=== PATIENT | female | born 1955 | race Caucasian/White ===

== ENCOUNTER 2020-08-08 20:05 | Inpatient (IN) | payer BC ==
[2020-08-08 21:08] LABS: Absolute Lymphocytes (CBC) 1.2 K/uL (0.7-4.9); Hematocrit 34.8 % (36.0-45.0); Lymphocytes % 24.3 % (15.3-44.8); MPV 9.3 fL (7.6-11.3); RBC Red Blood Cell Count 4.28 M/uL (3.86-4.86)
[2020-08-08 21:10] LABS: Protime INR 1.14
[2020-08-08] MEDS ORDERED: NA CHLORIDE 0.9% 1,000 ML ONE (21:18)
[2020-08-08 21:27] LABS: ALT/SGPT 16 U/L (12-78); AST/SGOT 20 U/L (15-37); Albumin 2.9 g/dL (3.4-5.0); Alkaline Phosphatase 106 U/L (45-117); BUN Blood Urea Nitrogen 7 mg/dL (7-18); Bicarbonate 22 mmol/L (21-32); Bilirubin Direct 0.2 mg/dL (0-0.2); Bilirubin Total 0.5 mg/dL (0.2-1.0); Glucose Level 102 mg/dL (74-106); Magnesium 2.1 mg/dL (1.8-2.4); NT PRO-BNP 50 pg/mL (<125); Potassium 3.1 mmol/L (3.5-5.1); Protein, Total 6.7 g/dL (6.4-8.2); Sodium Level 142 mmol/L (136-145); Troponin (Emerg Dept Use Only) < 0.02 ng/mL (0.0-0.045)
[2020-08-08] MEDS ORDERED: LEVETIRACETAM 500 MG/5 ML VIAL IV ONE (22:10)
[2020-08-08] MEDS ORDERED: NA CHLORIDE 0.9% 100 ML ONE (22:14)
[2020-08-08] MEDS ORDERED: POTASSIUM 25 MEQ EFFERV TAB ONE (22:33)
--- NOTE | 2020-08-09 00:05 | ER ---
Nurse's Notes [facility] Name: Valerie Cervantes Age: 64 yrs Sex: Female : 1955 Arrival Date: 08/08/2020 Time: 20:10 Bed 18 Private MD: Diagnosis: Syncope and collapse;Seizure Presentation: 08/08 20:15 Chief complaint: EMS states: EMS reports son called for a witnessed syncopal episode, sf possible seizure like activity. Upon EMS arrival, found patient alert and oriented x4 with no post-ictal state but BP 78/P. Positive for COVID 14 days ago, no s/s now, hx hemorrhagic CVA with craniotomy. Coronavirus screen: Client denies travel out of the [place] in the last 14 days. At this time, the client does not indicate any symptoms associated with coronavirus-19. Client reports previous positive COVID test result. Date of collection: July 25, 2020. Ebola Screen: Patient negative for fever greater than or equal to 101.5 degrees Fahrenheit, and additional compatible Ebola Virus Disease symptoms Patient denies exposure to infectious person. Patient denies travel to an Ebola-affected area in the 21 days before illness onset. No symptoms or risks identified at this time. Initial Sepsis Screen: Does the patient meet any 2 criteria? No. Patient's initial sepsis screen is negative. Does the patient have a suspected source of infection? No. Patient's initial sepsis screen is negative. Risk Assessment: Do you want to hurt yourself or someone else? Patient reports no desire to harm self or others. Onset of symptoms was August 08, 2020 at 19:45. 20:15 Method Of Arrival: EMS: [facility] sf 20:15 Acuity: REMY 3 sf 20:15 Care prior to arrival: Medication(s) given: IV initiated. 22 GA, in the left forearm, sf Glucose check: 109. Triage Assessment: 20:21 General: Appears in no apparent distress. comfortable, Behavior is calm, cooperative, sf appropriate for age. Pain: Complains of pain in right temporal area and right ear Pain currently is 2 out of 10 on a pain scale. Neuro: No deficits noted. Level of Consciousness is awake, alert, obeys commands, Oriented to person, place, time, situation, Appropriate for age. Cardiovascular: No deficits noted. Patient's skin is warm and dry. Respiratory: No deficits noted. Airway is patent Respiratory effort is even, unlabored, Respiratory pattern is regular, symmetrical. Historical: - Allergies: 20:20 Aspirin; sf - Home Meds: 21:16 levetiracetam 250 mg oral tab 2 tabs 2 times per day [Active]; folic acid 1 mg Oral tab sf 1 tab once daily [Active]; Pepcid 20 mg Oral tab 1 tab 2 times per day [Active]; lisinopril 5 mg Oral tab 1 tab once daily [Active]; albuterol sulfate 90 mcg/actuation Inhl HFAA 2 puffs every 4-6 hours [Active]; acetaminophen 325 mg Oral tab 2 tabs every 4-6 hours [Active]; tramadol 50 mg Oral tab 1 tab every 4-6 hours [Active]; aregfcj-emofhffdg-lnpy oral tab daily [Active]; multivitamin oral tab daily [Active]; Vitamin D3 oral oral daily [Active]; - PMHx: 20:20 CVA; sf 21:16 Hypertension; cervical cancer; sf - PSHx: 20:20 craniotomy; sf 21:16 Hysterectomy; breast augmentation; sf - Immunization history:: Adult Immunizations up to date. - Social history:: Smoking status: Patient denies any tobacco usage or history of. Screenin:27 Abuse screen: Denies threats or abuse. Denies injuries from another. Nutritional sf screening: No deficits noted. Tuberculosis screening: No symptoms or risk factors identified. Never had TB. Possible symptoms: None Risk factors: None. Fall Risk None identified. Fall in past 12 months (25 points). No secondary diagnosis (0 pts). IV access (20 points). Ambulatory Aid- None/Bed Rest/Nurse Assist (0 pts). Gait- Normal/Bed Rest/Wheelchair (0 pts) Mental Status- Oriented to own ability (0 pts). Total Castle Fall Scale indicates No Risk (0-24 pts). Assessment: 20:15 Reassessment: SEE TRIAGE NOTE. sf 20:32 Reassessment: VORB: Dr. Fernandez, cardiac workup with head CT w/o contrast. sf 21:52 Reassessment: Patient appears in no apparent distress at this time. No changes from sf previously documented assessment. Patient and/or family updated on plan of care and expected duration. Pain level reassessed. Patient is alert, oriented x 3, equal unlabored respirations, skin warm/dry/pink. 22:55 Reassessment: Patient appears in no apparent distress at this time. No changes from sf previously documented assessment. Patient and/or family updated on plan of care and expected duration. Pain level reassessed. Patient is alert, oriented x 3, equal unlabored respirations, skin warm/dry/pink. 08/09 00:49 Reassessment: Patient appears in no apparent distress at this time. No changes from sf previously documented assessment. Patient and/or family updated on plan of care and expected duration. Pain level reassessed. Patient is alert, oriented x 3, equal unlabored respirations, skin warm/dry/pink. Vital Signs: 08/08 20:15 BP 112 / 55; Pulse 82; Resp 16; Temp 99.1(O); Pulse Ox 94% on R/A; Weight 79.38 kg; Height 5 ft. 7 in. (170.18 cm); Pain 2/10; 20:15 BP 110 / 53; Pulse 84; Pulse Ox 94% ; sf 20:30 BP 81 / 44; Pulse 86; Pulse Ox 94% ; sf 20:46 BP 112 / 73; Pulse 88; Pulse Ox 96% ; sf 21:00 BP 94 / 40; Pulse 80; Resp 16; Pulse Ox 90% ; sf 21:15 BP 100 / 47; Pulse 78; Pulse Ox 92% ; sf 21:43 BP 104 / 58; Pulse 76; Pulse Ox 96% ; sf 21:45 BP 105 / 53; Pulse 76; Resp 16; Pulse Ox 93% ; sf 21:48 BP 109 / 55; Pulse 74; Pulse Ox 92% ; sf 22:00 BP 84 / 60; Pulse 81; Resp 16; Pulse Ox 97% ; sf 22:15 BP 92 / 54; Pulse 76; Pulse Ox 91% ; sf 22:30 BP 111 / 53; Pulse 74; Pulse Ox 94% ; sf 22:45 BP 99 / 61; Pulse 79; Resp 16; Pulse Ox 98% ; sf 23:00 BP 104 / 77; Pulse 77; Resp 16; Pulse Ox 100% ; sf 23:15 BP 106 / 62; Pulse 78; Pulse Ox 98% ; sf 23:31 BP 95 / 34; Pulse 87; Pulse Ox 97% ; sf 23:45 BP 122 / 81; Pulse 89; Resp 16; Pulse Ox 96% ; sf 08/09 00:51 Temp 99.1(TE); sf 08/08 20:15 Body Mass Index 27.41 (79.38 kg, 170.18 cm) ED Course: 08/08 20:10 Patient arrived in ED. mw2 20:15 Pasha Banks, RN is Primary Nurse. sf 20:19 Triage completed. sf 20:20 Arm band placed on right wrist. sf 20:22 Gui Fernandez MD is Attending Physician. 7 20:26 Patient has correct armband on for positive identification. Bed in low position. Call sf light in reach. Side rails up X2. subacute nurse on. Pulse ox on. NIBP on. Door closed. Noise minimized. Lights dimmed. Verbal reassurance given. 20:56 Initial lab(s) drawn, by me, sent to lab. EKG done, by electrical design technician. reviewed by Gui Fernandez MD. Maintain EMS IV. Dressing intact. Good blood return noted. Site clean \\T\\ dry. IV is patent, with good blood return, Flushed left forearm. 20:57 EKG done, by ED staff, reviewed by Gui Fernandez MD X-ray(s) taken. Patient maintains 3 SpO2 saturation greater than 95% on room air. 21:06 Warm blanket given. sf 21:24 CT Head Brain wo Cont Sent. sf 22:02 XRAY Chest (1 view) Sent. sf 22:41 COVID swab sent to lab. jp3 22:55 First set of blood cultures drawn by la. jp3 23:05 Second set of blood cultures drawn by me. jp3 23:50 Blood Culture Adult (2) Sent. sf 23:50 Lactate Sent. sf 23:50 Procalcitonin Sent. sf 23:50 Influenza Screen (a \\T\\ B) Sent. sf 23:50 CORONAVIRUS (COVID-19) : Document "Date of Symptom Onset" if Symptomatic. Sent. sf 23:50 Influenza Screen (A Sent. sf 23:51 CORONAVIRUS Sent. 08/09 00:01 Assisted to bathroom. jp3 00:02 Urine collected: clean catch specimen, clear, vane colored. jp3 00:04 Bong Linton MD is Hospitalizing Provider. mh7 00:48 Urine Dipstick--Ancillary (enter results) Sent. sf 00:49 No provider procedures requiring assistance completed. Patient admitted, IV remains in sf place. 02:50 Inserted saline lock: 22 gauge in left antecubital area, using aseptic technique. Blood sf collected. 07:20 Primary Nurse role handed off by Pasha Banks RN bd Administered Medications: 08/08 21:06 Drug: NS 0.9% 1000 ml Route: IV; Rate: 1000 ml; Site: left forearm; sf 23:51 Follow up: IV Status: Completed infusion; IV Intake: 1000ml sf 08/09 00:48 Follow up: Response: No adverse reaction sf 08/08 22:09 Drug: Keppra 1000 mg Route: IV; Rate: per protocol; Site: left forearm; sf 22:24 Follow up: IV Status: Completed infusion; IV Intake: 100ml sf 22:42 Follow up: Response: No adverse reaction sf 22:55 Follow up: Response: No adverse reaction sf 22:55 Drug: Potassium Effervescent Tablet 50 mEq Route: PO; sf 08/09 00:48 Follow up: Response: No adverse reaction sf Intake: 08/08 22:24 IV: 100ml; Total: 100ml. sf 23:51 IV: 1000ml; Total: 1100ml. Outcome: 08/09 00:04 Decision to Hospitalize by Provider. [facility] 00:49 Admitted to ER Hold. Please see [facility] for further documentation. 00:49 Condition: stable 07:53 Patient left the ED. Signatures: Rae Cole Shelby, RN RN John Page 2 Jignesh Fischer 3 Gui Fernandez MD MD [facility] Pasha Banks RN RN
--- NOTE | 2020-08-09 00:05 | EDPHYS ---
Physician Documentation [facility] Name: Valerie Cervantes Age: 64 yrs Sex: Female : 1955 Arrival Date: 08/08/2020 Time: 20:10 Bed 18 Private MD: ED Physician Gui Fernandez HPI: 08/08 20:56 This 64 yrs old Female presents to ER via EMS with complaints of Syncope. mh7 20:57 The patient has experienced syncope, became unresponsive. Onset: The symptoms/episode mh7 began/occurred just prior to arrival, today. Duration: This was a single episode, that lasted an unknown period of time. Context: the episode(s) was witnessed, by family, son, occurred at home, occurred while the patient was sitting, Just prior to the episode the patient experienced no apparent symptoms. Associated injury: The patient did not suffer any apparent associated injury. Associated signs and symptoms: Pertinent positives: seizure, possible, Pertinent negatives: abdominal pain, agitation, ataxia, blurred vision, chest pain, combativeness, confusion, diaphoresis, diarrhea, dizziness, headache, lightheadedness, nausea, numbness, palpitations, shortness of breath, tingling, vertigo, vomiting, weakness. Current symptoms: Currently, the patient is not experiencing any symptoms, the patient feels back to baseline. Historical: - Allergies: 20:20 Aspirin; sf - Home Meds: 21:16 levetiracetam 250 mg oral tab 2 tabs 2 times per day [Active]; folic acid 1 mg Oral tab sf 1 tab once daily [Active]; Pepcid 20 mg Oral tab 1 tab 2 times per day [Active]; lisinopril 5 mg Oral tab 1 tab once daily [Active]; albuterol sulfate 90 mcg/actuation Inhl HFAA 2 puffs every 4-6 hours [Active]; acetaminophen 325 mg Oral tab 2 tabs every 4-6 hours [Active]; tramadol 50 mg Oral tab 1 tab every 4-6 hours [Active]; ebsayyd-ywzvosjmi-gpgc oral tab daily [Active]; multivitamin oral tab daily [Active]; Vitamin D3 oral oral daily [Active]; - PMHx: 20:20 CVA; sf 21:16 Hypertension; cervical cancer; sf - PSHx: 20:20 craniotomy; sf 21:16 Hysterectomy; breast augmentation; sf - Immunization history:: Adult Immunizations up to date. - Social history:: Smoking status: Patient denies any tobacco usage or history of. ROS: 20:57 Constitutional: Negative for fever, chills, and weight loss, Eyes: Negative for injury, mh7 pain, redness, and discharge, ENT: Negative for injury, pain, and discharge, Neck: Negative for injury, pain, and swelling, Cardiovascular: Negative for chest pain, palpitations, and edema, Respiratory: Negative for shortness of breath, cough, wheezing, and pleuritic chest pain, Abdomen/GI: Negative for abdominal pain, nausea, vomiting, diarrhea, and constipation, Back: Negative for injury and pain, : Negative for injury, bleeding, discharge, and swelling, MS/Extremity: Negative for injury and deformity, Skin: Negative for injury, rash, and discoloration, Neuro: Negative for headache, weakness, numbness, tingling, and seizure, Psych: Negative for depression, anxiety, suicide ideation, homicidal ideation, and hallucinations, Allergy/Immunology: Negative for hives, rash, and allergies, Endocrine: Negative for neck swelling, polydipsia, polyuria, polyphagia, and marked weight changes, Hematologic/Lymphatic: Negative for swollen nodes, abnormal bleeding, and unusual bruising. Exam: 20:57 Constitutional: This is a well developed, well nourished patient who is awake, alert, mh7 and in no acute distress. 20:57 Eyes: Pupils equal round and reactive to light, extra-ocular motions intact. Lids and lashes normal. Conjunctiva and sclera are non-icteric and not injected. Cornea within normal limits. Periorbital areas with no swelling, redness, or edema. ENT: Nares patent. No nasal discharge, no septal abnormalities noted. Tympanic membranes are normal and external auditory canals are clear. Oropharynx with no redness, swelling, or masses, exudates, or evidence of obstruction, uvula midline. Mucous membranes moist. Neck: Trachea midline, no thyromegaly or masses palpated, and no cervical lymphadenopathy. Supple, full range of motion without nuchal rigidity, or vertebral point tenderness. No Meningismus. Chest/axilla: Normal chest wall appearance and motion. Nontender with no deformity. No lesions are appreciated. Cardiovascular: Regular rate and rhythm with a normal S1 and S2. No gallops, murmurs, or rubs. Normal PMI, no JVD. No pulse deficits. Respiratory: Lungs have equal breath sounds bilaterally, clear to auscultation and percussion. No rales, rhonchi or wheezes noted. No increased work of breathing, no retractions or nasal flaring. Abdomen/GI: Soft, non-tender, with normal bowel sounds. No distension or tympany. No guarding or rebound. No evidence of tenderness throughout. Back: No spinal tenderness. No costovertebral tenderness. Full range of motion. Skin: Warm, dry with normal turgor. Normal color with no rashes, no lesions, and no evidence of cellulitis. MS/ Extremity: Pulses equal, no cyanosis. Neurovascular intact. Full, normal range of motion. Neuro: Awake and alert, GCS 15, oriented to person, place, time, and situation. Cranial nerves II-XII grossly intact. Motor strength 5/5 in all extremities. Sensory grossly intact. Cerebellar exam normal. Normal gait. Psych: Awake, alert, with orientation to person, place and time. Behavior, mood, and affect are within normal limits. 20:57 Head/face: Noted is right craniotomy scar intact. Vital Signs: 20:15 BP 112 / 55; Pulse 82; Resp 16; Temp 99.1(O); Pulse Ox 94% on R/A; Weight 79.38 kg; sf Height 5 ft. 7 in. (170.18 cm); Pain 2/10; 20:15 BP 110 / 53; Pulse 84; Pulse Ox 94% ; sf 20:30 BP 81 / 44; Pulse 86; Pulse Ox 94% ; sf 20:46 BP 112 / 73; Pulse 88; Pulse Ox 96% ; sf 21:00 BP 94 / 40; Pulse 80; Resp 16; Pulse Ox 90% ; sf 21:15 BP 100 / 47; Pulse 78; Pulse Ox 92% ; sf 21:43 BP 104 / 58; Pulse 76; Pulse Ox 96% ; sf 21:45 BP 105 / 53; Pulse 76; Resp 16; Pulse Ox 93% ; sf 21:48 BP 109 / 55; Pulse 74; Pulse Ox 92% ; sf 22:00 BP 84 / 60; Pulse 81; Resp 16; Pulse Ox 97% ; sf 22:15 BP 92 / 54; Pulse 76; Pulse Ox 91% ; sf 22:30 BP 111 / 53; Pulse 74; Pulse Ox 94% ; sf 22:45 BP 99 / 61; Pulse 79; Resp 16; Pulse Ox 98% ; sf 23:00 BP 104 / 77; Pulse 77; Resp 16; Pulse Ox 100% ; sf 23:15 BP 106 / 62; Pulse 78; Pulse Ox 98% ; sf 23:31 BP 95 / 34; Pulse 87; Pulse Ox 97% ; sf 23:45 BP 122 / 81; Pulse 89; Resp 16; Pulse Ox 96% ; 08/09 00:51 Temp 99.1(TE); 08/08 20:15 Body Mass Index 27.41 (79.38 kg, 170.18 cm) MDM: 00:02 Differential Diagnosis: cardiac arrhythmia, cerebrovascular accident, drug effect, [facility] idiopathic syncope, pseudo seizure, seizure, vasovagal episode. Data reviewed: vital signs, nurses notes, EMS record, lab test result(s), cardiac enzymes, CBC, electrolytes, urinalysis, EKG, radiologic studies, CT scan, plain films. Data interpreted: Pulse oximetry: on room air is 98 %. Interpretation: normal. Counseling: I had a detailed discussion with the patient and/or guardian regarding: the historical points, exam findings, and any diagnostic results supporting the discharge/admit diagnosis, lab results, radiology results, the need for further work-up and treatment in the hospital. Response to treatment: the patient's symptoms have markedly improved after treatment. Physician consultation: Cheng Falk MD was contacted at 23:40, regarding patient's condition, and will see patient in inpatient room, would like admission per Dr. Bong Linton MD. 00:04 Patient medically screened. [facility] 08/08 20:52 Order name: Basic Metabolic Panel [facility] 08/08 20:52 Order name: CBC with Diff [facility] 08/08 20:52 Order name: LFT's [facility] 08/08 20:52 Order name: Magnesium [facility] 08/08 20:52 Order name: NT PRO-BNP [facility] 08/08 20:52 Order name: PT-INR [facility] 08/08 20:52 Order name: Troponin (emerg Dept Use Only) [facility] 08/08 21:10 Order name: CBC with Automated Diff; Complete Time: 21:27 [facility] 08/08 21:15 Order name: Protime (+INR); Complete Time: 21:27 [facility] 08/08 21:27 Order name: Basic Metabolic Panel [facility] 08/08 21:27 Order name: Liver (Hepatic) Function [facility] 08/08 21:27 Order name: Troponin (Emerg Dept Use Only) [facility] 08/08 21:27 Order name: NT PRO-BNP [facility] 08/08 21:27 Order name: Magnesium [facility] 08/08 22:34 Order name: Blood Culture Adult (2) [facility] 08/08 22:34 Order name: Lactate [facility] 08/08 22:34 Order name: Procalcitonin [facility] 08/08 22:37 Order name: Influenza Screen (a \\T\\ B) [facility] 08/08 22:37 Order name: CORONAVIRUS (COVID-19) : Document "Date of Symptom Onset" if Symptomatic. [facility] 08/08 23:17 Order name: Influenza Screen (A [facility] 08/08 23:18 Order name: CORONAVIRUS [facility] 08/08 23:38 Order name: Lactate; Complete Time: 23:46 [facility] 08/08 23:52 Order name: Procalcitonin; Complete Time: 23:57 [facility] 08/08 20:30 Order name: Cardiac monitoring; Complete Time: 20:30 08/08 20:30 Order name: EKG - Nurse/Tech; Complete Time: 20:55 08/08 20:30 Order name: IV Saline Lock; Complete Time: 20:31 08/08 20:30 Order name: Labs collected and sent; Complete Time: 20:56 08/08 20:30 Order name: O2 Per Protocol; Complete Time: 20:31 08/08 20:30 Order name: O2 Sat Monitoring; Complete Time: 20:31 08/08 20:52 Order name: XRAY Chest (1 view); Complete Time: 22:29 [facility] 08/08 20:52 Order name: EKG; Complete Time: 20:53 [facility] 08/08 20:52 Order name: Urine Dipstick-Ancillary (obtain specimen); Complete Time: 23:56 [facility] 08/08 20:53 Order name: CT Head Brain wo Cont; Complete Time: 21:57 [facility] 08/09 00:11 Order name: Urine Dipstick--Ancillary (enter results) [facility] 08/09 00:17 Order name: COVID-19/FLU A+B [facility] 08/09 02:00 Order name: Thyroid Stimulating Hormone EDMS 08/09 04:36 Order name: Urine Dipstick-Ancillary EDMS Administered Medications: 08/08 21:06 Drug: NS 0.9% 1000 ml Route: IV; Rate: 1000 ml; Site: left forearm; sf 23:51 Follow up: IV Status: Completed infusion; IV Intake: 1000ml 08/09 00:48 Follow up: Response: No adverse reaction 08/08 22:09 Drug: Keppra 1000 mg Route: IV; Rate: per protocol; Site: left forearm; sf 22:24 Follow up: IV Status: Completed infusion; IV Intake: 100ml sf 22:42 Follow up: Response: No adverse reaction sf 22:55 Follow up: Response: No adverse reaction 22:55 Drug: Potassium Effervescent Tablet 50 mEq Route: PO; 08/09 00:48 Follow up: Response: No adverse reaction Disposition: 08/09/20 00:04 Hospitalization ordered by Bong Linton for Observation. Preliminary diagnosis are Syncope and collapse, Seizure. - Bed requested for Telemetry/MedSurg (observation). - Status is Observation. ss - Condition is Stable. - Problem is new. - Symptoms have improved. Signatures: Dispatcher [employer] EDMS Rae Cole Martha RN RN Kayla Clements RN Hollie Lugo RN RN Gui Fernandez MD MD [facility] Pasha Banks RN RN sf Corrections: (The following items were deleted from the chart) 00:19 00:04 Hospitalization Ordered by Bong Linton MD for Observation. Preliminary mw diagnosis is Syncope and collapse; Seizure. Bed requested for Telemetry/MedSurg (observation). Status is Observation. Condition is Stable. Problem is new. Symptoms have improved. [facility] 07:09 00:19 08/09/2020 00:04 Hospitalization Ordered by Bong Linton MD for Observation. Preliminary diagnosis is Syncope and collapse; Seizure. Bed requested for [facility] ER HOLD. Status is Observation. Condition is Stable. Problem is new. Symptoms have improved. 07:09 07:08/09/2020 00:04 Hospitalization Ordered by Bong Linton MD for Observation. dw Preliminary diagnosis is Syncope and collapse; Seizure. Bed requested for Telemetry/MedSurg (observation). Status is Observation. Condition is Stable. Problem is new. Symptoms have improved. dw 07:09 07:08/09/2020 00:04 Hospitalization Ordered by Bong Linton MD for Observation. bd Preliminary diagnosis is Syncope and collapse; Seizure. Bed requested for Telemetry/MedSurg (observation). Status is Observation. Condition is Stable. Problem is new. Symptoms have improved. dw 07:53 07:08/09/2020 00:04 Hospitalization Ordered by Bong Linton MD for Observation. ss Preliminary diagnosis is Syncope and collapse; Seizure. Bed requested for Telemetry/MedSurg (observation). Status is Observation. Condition is Stable. Problem is new. Symptoms have improved. bd
[2020-08-09 00:16] LABS: SARS-COV-2 RT PCR POSITIVE (NEGATIVE)
[2020-08-09] MEDS ORDERED: HYDRALAZINE HCL 20 MG/ML VIAL IV PRN (00:51)
[2020-08-09] MEDS ORDERED: GUAIFENESIN/DM 5 ML UCUP PO PRN (00:51)
[2020-08-09] MEDS ORDERED: ONDANSETRON 4 MG/2 ML VIAL IV PRN (00:51)
[2020-08-09] MEDS ORDERED: LORAZEPAM 0.5 MG TABLET PO PRN (00:51)
[2020-08-09] MEDS ORDERED: ALBUTEROL 2.5 MG/3 ML NEB SOL NEB PRN (00:51)
[2020-08-09] MEDS ORDERED: MORPHINE 2 MG/ML SYR IV PRN (00:51)
[2020-08-09] MEDS ORDERED: POTASSIUM CL SA 10 MEQ TAB PO ONE (00:53)
[2020-08-09] MEDS ORDERED: NS KCL 40MEQ 40 MEQ/1,000 ML BAG IV SCH (01:00)
--- NOTE | 2020-08-09 01:08 | P.HP ---
Certification for Inpatient With expected LOS: >2 Midnights Patient will require the following post-hospital care: None Practitioner: I am a practitioner with admitting privileges, knowledge of patient current condition, hospital course, and medical plan of care. Services: Services provided to patient in accordance with Admission requirements found in Title 42 Section 412.3 of the Code of Federal Regulations Patient History Date of Service: 08/09/20 Reason for admission: Unresponsiveness History of Present Illness: 64-year-old female with past medical history of hypertension, recent CVA status post bleed requiring craniectomy 2 months ago admitted after EMS was called for patient being unresponsive. Patient's son had described to the ER physician. Patient was apparently well then developed repeated episodes of shaking and MB, unresponsive. Of note patient is on Keppra following her recent CVA and craniectomy. On arrival in the ED patient was awake but poor historian. No reported fever or chills. She denies any nausea, vomiting or headache. She denies any cough or shortness of breath. In the ER she has a low-grade temp of 99.[address] shows fluid collection around the craniectomy site. Neurology consulted a recommend MRI of the brain to rule out infection. Patient's routine pre-admission screening showed positive covid status. she admit to positive status 10 days ago but refuse option of ivermectin then Allergies No Known Allergies Allergy (Verified 07/12/20 14:05) Home Medications: Acetaminophen [Tylenol Extra Strength] 500 mg PO TID 07/14/20 Famotidine [Pepcid] 20 mg PO BID 07/14/20 Folic Acid 1 mg PO DAILY 07/14/20 Levetiracetam [Keppra] 250 mg PO BID 07/14/20 Lisinopril [Zestril] 5 mg PO DAILY 07/14/20 - Past Medical/Surgical History -: Hypertension -: CVA in -: Recent craniotomy -: History of cervical cancer -: Breast augmentation -: Craniotomy - Family History Family History: Reviewed- Non-Contributory - Social History Smoking Status: Never smoker Place of Residence: Home Review of Systems 10-point ROS is otherwise unremarkable Physical Examination - Physical Exam General: Alert, Oriented x3, Cooperative HEENT: Atraumatic, Normocephalic Neck: Supple, 2+ carotid pulse no bruit, JVD not distended Respiratory: Clear to auscultation bilaterally, Normal air movement Cardiovascular: No edema, Normal pulses, Regular rate/rhythm, Normal S1 S2 Gastrointestinal: Normal bowel sounds, Soft and benign, Non-distended Musculoskeletal: No clubbing, No swelling, No contractures Neurological: Normal gait, Normal speech, Normal strength at 5/5 x4 extr - Studies Laboratory Data (last 24 hrs) 08/08/20 20:55: PT 13.1 H, INR 1.14 08/08/20 20:55: WBC 4.80, Hgb 11.5 L, Hct 34.8 L, Plt Count 201 08/08/20 20:55: Sodium 142, Potassium 3.1 L, BUN 7, Creatinine 0.48 L, Glucose 102, Magnesium 2.1, Total Bilirubin 0.5, AST 20, ALT 16, Alkaline Phosphatase 106 Assessment and Plan - Problems (Diagnosis) (1) Seizure cerebral Current Visit: Yes Status: Acute (2) COVID-19 virus infection Current Visit: Yes Status: Acute (3) Hypokalemia Current Visit: Yes Status: Acute (4) Hx of cerebral infarction Current Visit: No Status: Acute (5) Hypertension Current Visit: No Status: Acute - Plan Seizure disorder-will consult neurology -status post increased dose of Keppra to 750 b.i.d. -status post Keppra 1 g IV given now -place on neuro checks q.4 hr. -May have been precipitated by Covid infection # Hypokalemia-will replete with IV - gentle IV fluid with NS at [facility] # Covid infection/pna -start ivermectin/Decadron/zinc Wean oxygen as tolerated #DVT prophylaxis-subcutaneous heparin #Full code Discharge Plan: Home - Advance Directives Does patient have a Living Will: No Does patient have a Durable POA for Healthcare: No Physician Review: Patient Assessed, Agree with Above Assessment and Plan (65) Time Spent Managing Pts Care (In Minutes): 65
[2020-08-09 03:20] VITALS: BMI 27.3
[2020-08-09] MEDS: HEPARIN 5000 UNIT/ML 1 ML VIAL SQ SCH ×4 (03:30→20:51)
[2020-08-09] MEDS ORDERED: HEPARIN 5000 UNIT/ML 1 ML VIAL ONE (03:46)
[2020-08-09] MEDS ORDERED: KCL 20 MEQ/100 mL IVPB 40 MEQ/200 ML BAG IV ONE (04:02)
[2020-08-09] MEDS ORDERED: NA CHLORIDE 0.9% 1,000 ML ONE (04:02)
[2020-08-09 04:35] LABS: Urine Blood NEGATIVE (NEG); Urine Glucose NEGATIVE (NEG); Urine Protein NEGATIVE (NEG)
[2020-08-09] MEDS ORDERED: dexAMETHasone 4 MG TAB PO SCH (09:00)
[2020-08-09] MEDS ORDERED: lisinopriL 5 MG TAB PO SCH (09:00)
[2020-08-09] MEDS ORDERED: IVERMECTIN 3 MG TABLET PO SCH (09:00)
--- NOTE | 2020-08-09 09:18 | P.PN ---
Subjective Date of Service: 08/09/20 Primary Care Provider: Previously see by Dr. Garcia Chief Complaint: Unresponsiveness Subjective: Improving, Doing well Physical Examination - Vital Signs Temperature: 98.1 F Blood Pressure: 126/62 Pulse: 93 Respirations: 14 Pulse Ox (%): 94 - Physical Exam General: Alert, In no apparent distress, Oriented x3, Cooperative HEENT: Other (Postsurgical changes to the head.) Neck: Supple Respiratory: Clear to auscultation bilaterally, Normal air movement Cardiovascular: Normal pulses, Regular rate/rhythm Gastrointestinal: Normal bowel sounds, Soft and benign, Non-distended, No tenderness, No masses, No rebound, No guarding Musculoskeletal: No erythema, No tenderness, No warmth Neurological: Normal speech, Normal strength at 5/5 x4 extr, Normal tone, Normal affect - Studies Laboratory Data (last 24 hrs) 08/08/20 20:55: PT 13.1 H, INR 1.14 08/08/20 20:55: WBC 4.80, Hgb 11.5 L, Hct 34.8 L, Plt Count 201 08/08/20 20:55: Sodium 142, Potassium 3.1 L, BUN 7, Creatinine 0.48 L, Glucose 102, Magnesium 2.1, Total Bilirubin 0.5, AST 20, ALT 16, Alkaline Phosphatase 106 Medications List Reviewed: Yes Assessment & Plan Discharge Plan: Home Plan to discharge in: 24 Hours Physician Review Additional Text: Impression: Unresponsiveness status post seizure complicated with history of CVA with craniotomy Hypertension COVID 19 positive, asymptomatic Plan: Unresponsiveness status post seizure complicated with history of CVA with craniotomy: Her Keppra medication was increased. Continue monitor on higher dose. MRI to be obtained to evaluate further. Will discuss with Neurology. If MRI unremarkable anticipate discharge later today on higher dose Keppra. This can be followed up as an outpatient. Hypertension: Continue lisinopril. Will put parameters in place. COVID 19 positive, asymptomatic: Patient asymptomatic. Unremarkable. Will monitor closely. Time Spent Managing Pts Care (In Minutes): 55
[2020-08-09] MEDS: lisinopriL 5 MG TAB PO SCH (09:48)
[2020-08-09] MEDS: ZINC SULFATE 220 MG CAP PO SCH (09:48)
[2020-08-09] MEDS: levETIRAcetam 500 MG TAB PO SCH ×2 (09:48→20:50)
--- NOTE | 2020-08-09 11:13 | RAD REPORT ---
EXAM DESCRIPTION: CT - Head Brain Wo Cont - 08/09/2020 1:08 am CLINICAL HISTORY: 64-year-old female with syncope. COMPARISON: No prior imaging is available for comparison. TECHNIQUE: CT brain without contrast. This exam was performed according to our departmental dose opt imization program which includes use of automated exposure control, adjustment of the mA and/or kV ac cording to patient size and/or use of iterative reconstruction technique. FINDINGS: Postoperative changes of a RIGHT frontal pterional craniotomy identified affixed with surg ical plates. Portion of the inferior pterional craniotomy appears to be incompletely affixed to the a djacent calvarium. Fluid collection is identified subjacent to the craniotomy site measuring up to 9 mm in thickness, (s eries 201, image 18) with low attenuation contents suggesting chronic collection. Additionally, a sma ll volume of similar-appearing density fluid is identified within the deep subcutaneous tissues direc tly abutting the calvarium measuring up to 5 mm in thickness, (series 201, image 16). Gliosis and encephalomalacia is identified at the level of the RIGHT parietal lobe suggesting sequela of prior tumor/postoperative change and/or infarction. Cystic type fluid collection is identified wi thin this level may reflect surgical bed with possible communication to the RIGHT occipital horn. The extra-axial fluid collection subjacent to the craniotomy site is of indeterminate age and may ref lect postoperative hematoma, seroma, however the possibility of infectious process including subdural empyema cannot be excluded on a noncontrast CT examination. Likewise the subcutaneous fluid collection may reflect postoperative change however infection cannot be excluded. Multifocal regions of patchy hypoattenuation are present in a subcortical and periventricular deep wh ite matter distribution, nonspecific; however, most likely represent small vessel ischemic disease, a ge indeterminate. The ventricles, sulci, and cisterns are symmetric and unremarkable. The umaña-white matter different iation is preserved. There is no mass effect, midline shift, intra- or extra-axial fluid collection /acute hemorrhage. The osseous structures are unremarkable. The paranasal sinuses and mastoid air cells are clear. IMPRESSION: 1. No acute intracranial abnormalities. 2. Fluid collection identified adjacent to the craniotomy site raising the concern for postoperative chronic appearing hematoma/seroma, however the possibility of infectious process including subdural e mpyema cannot be excluded. Further evaluation with MRI pre and postcontrast is recommended. Electronically signed by: Denise Peraza MD 08/08/2020 9:52 PM SECURITY DIRECTOR Due to temporary technical issues with the PACS/Fluency reporting system, reports are being signed by the in house radiologists without review as a courtesy to insure prompt reporting. The interpreting radiologist is fully responsible for the content of the report.
--- NOTE | 2020-08-09 11:28 | RAD REPORT ---
EXAM DESCRIPTION: RAD - Chest Single View - 08/08/2020 10:16 pm CLINICAL HISTORY: 64-year-old female with syncope. TECHNIQUE: Single view, AP portable chest was obtained. COMPARISON: None. FINDINGS: Unremarkable cardiac and mediastinal silhouette. Heart size is normal. Lungs are clear without focal opacity, pneumothorax or pleural effusions. Limited evaluation, however the bilateral lower lungs secondary to overlying breast soft tissue density. Upright PA and lateral radiography is recommended when the patient is clinically able. The visualized bones are within normal limits. IMPRESSION: No acute cardiopulmonary abnormalities. Limited evaluation, however the bilateral lower lungs secondary to overlying breast soft tissue density. Upright PA and lateral radiography is recomm ended when the patient is clinically able. Electronically signed by: Denise Peraza MD 08/08/2020 10:40 PM MATERIAL CUTTER Due to temporary technical issues with the PACS/Fluency reporting system, reports are being signed by the in house radiologists without review as a courtesy to insure prompt reporting. The interpreting radiologist is fully responsible for the content of the report.
--- NOTE | 2020-08-09 13:13 | EKG ---
Test Date: 2020-08-08 Test Time: 20:52:07 Lumber Hacker: REBECCA MEASUREMENT RESULTS: Intervals: Rate: 87 NH: 144 QRSD: 82 QT: 382 QTc: 459 Llewellyn: P: 60 NH: 144 QRS: 27 T: 61 INTERPRETIVE STATEMENTS: Normal sinus rhythm Normal ECG No previous ECG available for comparison Electronically Signed On 08-09-20 13:12:27 METAL ENGRAVER by Sal Barclay
[2020-08-09] MEDS: ASCORBIC ACID 500 MG TABLET PO SCH ×2 (15:02→20:52)
[2020-08-09] MEDS: ACETAMINOPHEN 500 MG TAB PO PRN ×2 (15:31→23:22)
[2020-08-09] MEDS: LOPERAMIDE HCL 2 MG CAPSULE PO PRN (17:12)
--- NOTE | 2020-08-09 17:28 | RAD REPORT ---
EXAM DESCRIPTION: MRI - Brain W/Wo Cont - 08/09/2020 5:12 pm CLINICAL HISTORY: brain lesion r/o infection Headache, drowsiness COMPARISON: Head Brain Wo Cont dated 08/08/2020 TECHNIQUE: Multi-sequence, multiplanar MR imaging of the brain was performed with contrast. FINDINGS: Motion degradation is present on the submitted sequences, limiting assessment. Enhancement of the dura adjacent to the craniotomy site is noted. There is also mild enhancement in t he right postsurgical parietooccipital region. Right-sided extra-axial fluid along the right cranioto my site is noted, measuring 9 mm in maximum thickness. Some diffusion restriction is seen within the fluid as well as the adjacent surgical cavity on DWI imaging. Mild oblong fluid collection is also se en along the right scalp in this region measuring up to 8 mm in thickness. There is minimal right to left midline shift seen. IMPRESSION: Moderate motion degradation is present limiting evaluation. Collected MRI findings detailed above are suspicious for right-sided subdural empyema/infection.Recom mend correlation with clinical signs and symptoms.
[2020-08-09] MEDS: LACTOBACILLUS/ACIDOPHILUS TAB PO SCH (20:52)
[2020-08-10 04:34] LABS: ALT/SGPT 16 U/L (12-78); AST/SGOT 20 U/L (15-37); Albumin 2.9 g/dL (3.4-5.0); Alkaline Phosphatase 109 U/L (45-117); BUN Blood Urea Nitrogen 4 mg/dL (7-18); Bicarbonate 25 mmol/L (21-32); Bilirubin Total 0.5 mg/dL (0.2-1.0); Glucose Level 85 mg/dL (74-106); Potassium 3.5 mmol/L (3.5-5.1); Protein, Total 6.9 g/dL (6.4-8.2); Sodium Level 142 mmol/L (136-145)
[2020-08-10 05:51] LABS: Absolute Lymphocytes (CBC) 1.2 K/uL (0.7-4.9); Basophils % 0.2 % (0-1.3); Hematocrit 35.1 % (36.0-45.0); Lymphocytes % 23.2 % (15.3-44.8); MPV 9.7 fL (7.6-11.3); RBC Red Blood Cell Count 4.25 M/uL (3.86-4.86)
[2020-08-10] MEDS ORDERED: CEFTRIAXONE 1 GM/NS 50 ML 1 GM/50 ML BAG IV SCH (05:57)
[2020-08-10] MEDS: CEFTRIAXONE/SWI 1gm 1 GM/10 ML SYR IV SCH (06:21)
--- NOTE | 2020-08-10 08:20 | P.PN ---
Subjective Date of Service: 08/10/20 Primary Care Provider: Previously see by Dr. Garcia Chief Complaint: Unresponsiveness Subjective: Doing well (T-max 101.1) Physical Examination - Vital Signs Temperature: 99.1 F Blood Pressure: 132/62 Pulse: 84 Respirations: 16 Pulse Ox (%): 94 - Studies Medications List Reviewed: Yes Assessment & Plan Discharge Plan: Transfer Plan to discharge in: Greater than 2 days Physician Review Additional Text: Impression: Unresponsiveness status post seizure complicated with history of ruptured aneurysm requiring craniotomy now with MRI findings of suspicious right-sided subdural empyema Hypertension COVID 19 positive, asymptomatic Plan: Unresponsiveness status post seizure complicated with history of ruptured aneurysm requiring craniotomy now with MRI findings of suspicious right-sided subdural empyema: Patient clinically stable. T-max 101 last night. Blood culture 06/28 positive. Suspect contaminant. MRI reviewed. Case discussed with Neurology. Neurology recommends to start IV antibiotic therapy. Rocephin/vancomycin initiated. White count within normal range. Pro calcitonin negative. MRI reviewed with Neurology. Suspect Right-sided subdural empyema noted. Neurology recommends transfer to tertiary care center to further evaluate and treat. Patient will need neurosurgery/neurology for further evaluation. Patient will likely require drainage of empyema. Will initiate transfer. Spoke with children in detail concerning prior history of events. Children report patient suffered a severe headache May 07, 2020 then became unresponsive. Patient was seen in [facility] for this. She was found to have a ruptured aneurysm. She then had emergent surgery-craniotomy. Her hospitalization was complicated with aspiration pneumonia. She was eventually discharge to skilled placement[facility] in [facility] at the end of May. Most recently around July 20 she start to have some symptoms of cough and congestion. She was then found to be positive for COVID 19. Patient was hospitalized during this admission for unresponsiveness and seizure. Her Keppra medication has been increased. No seizures noted. Await to discuss further with neuro surgery and the possibility of acceptance for transfer. Hypertension: Continue lisinopril. Parameters in place. COVID 19 positive, asymptomatic: Patient asymptomatic. Unremarkable. Will monitor closely. Room-air saturations within normal range. Time Spent Managing Pts Care (In Minutes): 55
[2020-08-10] MEDS ORDERED: VANCOMYCIN 1.5 GM in NA CHLORIDE 0.9% 500 ML IVPB SCH (09:00)
[2020-08-10] MEDS ORDERED: VANCOMYCIN 1 GM in NA CHLORIDE 0.9% 500 ML IVPB SCH (09:00)
[2020-08-10] MEDS: ZINC SULFATE 220 MG CAP PO SCH (09:18)
[2020-08-10] MEDS: VITAMIN D 1000 UNIT TAB PO SCH (09:18)
[2020-08-10] MEDS: LACTOBACILLUS/ACIDOPHILUS TAB PO SCH ×3 (09:19→20:09)
[2020-08-10] MEDS: FOLIC ACID 1 MG TABLET PO SCH (09:19)
[2020-08-10] MEDS: levETIRAcetam 500 MG TAB PO SCH ×2 (09:19→20:10)
[2020-08-10] MEDS: HEPARIN 5000 UNIT/ML 1 ML VIAL SQ SCH ×2 (09:19→20:11)
[2020-08-10] MEDS: ASCORBIC ACID 500 MG TABLET PO SCH ×3 (09:19→20:09)
[2020-08-10] MEDS: THIAMINE HCL 100 MG TABLET PO SCH (09:19)
[2020-08-10] MEDS: lisinopriL 5 MG TAB PO SCH (09:21)
[2020-08-10] MEDS: VANCOMYCIN 1.5 GM in NA CHLORIDE 0.9% 500 ML IVPB SCH ×2 (10:38→20:12)
[2020-08-10 13:02] LABS: C.diff Antigen/Toxin Ag neg : Tox neg (NEG : NEG)
[2020-08-10] MEDS: ACETAMINOPHEN 500 MG TAB PO PRN (16:21)
[2020-08-10] MEDS: JUVEN PACKET PO SCH (20:13)
[2020-08-11 04:18] LABS: ALT/SGPT 16 U/L (12-78); AST/SGOT 18 U/L (15-37); Albumin 2.7 g/dL (3.4-5.0); Alkaline Phosphatase 110 U/L (45-117); BUN Blood Urea Nitrogen 3 mg/dL (7-18); Bicarbonate 24 mmol/L (21-32); Bilirubin Total 0.6 mg/dL (0.2-1.0); Glucose Level 84 mg/dL (74-106); Protein, Total 6.8 g/dL (6.4-8.2); Sodium Level 139 mmol/L (136-145)
[2020-08-11] MEDS: CEFTRIAXONE/SWI 1gm 1 GM/10 ML SYR IV SCH (07:59)
[2020-08-11] MEDS: VITAMIN D 1000 UNIT TAB PO SCH (07:59)
[2020-08-11] MEDS: LACTOBACILLUS/ACIDOPHILUS TAB PO SCH ×3 (08:00→20:09)
[2020-08-11] MEDS ORDERED: POTASSIUM 25 MEQ EFFERV TAB PO ONE (08:00)
[2020-08-11] MEDS: ASCORBIC ACID 500 MG TABLET PO SCH ×3 (08:01→20:10)
[2020-08-11] MEDS: levETIRAcetam 500 MG TAB PO SCH ×2 (08:02→20:09)
[2020-08-11] MEDS: HEPARIN 5000 UNIT/ML 1 ML VIAL SQ SCH ×2 (08:02→20:10)
[2020-08-11] MEDS: THIAMINE HCL 100 MG TABLET PO SCH (08:02)
[2020-08-11] MEDS: lisinopriL 5 MG TAB PO SCH (08:02)
[2020-08-11] MEDS: ZINC SULFATE 220 MG CAP PO SCH (08:02)
[2020-08-11] MEDS: FOLIC ACID 1 MG TABLET PO SCH (08:05)
[2020-08-11] MEDS: JUVEN PACKET PO SCH ×2 (08:05→20:10)
[2020-08-11] MEDS: VANCOMYCIN 1.5 GM in NA CHLORIDE 0.9% 500 ML IVPB SCH ×2 (08:05→21:54)
[2020-08-11] MEDS: ACETAMINOPHEN 500 MG TAB PO PRN (08:41)
[2020-08-11] MEDS: LOPERAMIDE HCL 2 MG CAPSULE PO PRN ×2 (14:47→20:10)
--- NOTE | 2020-08-11 14:48 | P.PN ---
Subjective Date of Service: 08/11/20 Primary Care Provider: Previously see by Dr. Garcia Chief Complaint: Unresponsiveness Subjective: Doing well Physical Examination - Vital Signs Temperature: 99.4 F Blood Pressure: 118/64 Pulse: 75 Respirations: 20 Pulse Ox (%): 94 - Studies Medications List Reviewed: Yes Assessment & Plan Discharge Plan: Transfer Plan to discharge in: 24 Hours Physician Review Additional Text: Impression: Unresponsiveness status post seizure complicated with history of ruptured aneurysm requiring craniotomy now with MRI findings of suspicious right-sided subdural empyema Hypertension COVID 19 positive, asymptomatic Plan: Unresponsiveness status post seizure complicated with history of ruptured aneurysm requiring craniotomy now with MRI findings of suspicious right-sided subdural empyema: Patient clinically stable. Patient afebrile over the last 24 hr. Vital signs stable. Patient on room air. Spoke with Neurosurgery and hospitalists yesterday. They have agreed to accept patient for further evaluation at [facility]. Currently awaiting bed. Rep eat COVID test still positive. Continue with vitamin supplementation. Patient on IV Rocephin and vancomycin. White count within normal range. Pro calcitonin negative. MRI reviewed with Neurology. Suspect Right-sided subdural empyema noted. Patient will need neurosurgery/neurology for further evaluation. Patient will likely require drainage of empyema. Spoke with children today concerning plan of care. Await transfer. Hypertension: Continue lisinopril. Parameters in place. COVID 19 positive, asymptomatic: Patient asymptomatic. Unremarkable. Will monitor closely. Room-air saturations within normal range. Time Spent Managing Pts Care (In Minutes): 55
[2020-08-11] MEDS ORDERED: POTASSIUM CL SA 10 MEQ TAB PO ONE (21:00)
[2020-08-12 04:32] LABS: ALT/SGPT 16 U/L (12-78); AST/SGOT 18 U/L (15-37); Albumin 2.5 g/dL (3.4-5.0); Alkaline Phosphatase 112 U/L (45-117); BUN Blood Urea Nitrogen 3 mg/dL (7-18); Bicarbonate 26 mmol/L (21-32); Bilirubin Total 0.5 mg/dL (0.2-1.0); Glucose Level 80 mg/dL (74-106); Potassium 3.4 mmol/L (3.5-5.1); Protein, Total 6.4 g/dL (6.4-8.2); Sodium Level 142 mmol/L (136-145)
[2020-08-12] MEDS ORDERED: POTASSIUM 25 MEQ EFFERV TAB PO ONE (05:52)
[2020-08-12] MEDS: VANCOMYCIN 1.5 GM in NA CHLORIDE 0.9% 500 ML IVPB SCH ×2 (08:18→19:48)
[2020-08-12] MEDS: HEPARIN 5000 UNIT/ML 1 ML VIAL SQ SCH ×2 (08:19→19:50)
[2020-08-12] MEDS: CEFTRIAXONE/SWI 1gm 1 GM/10 ML SYR IV SCH (08:19)
[2020-08-12] MEDS: FOLIC ACID 1 MG TABLET PO SCH (08:19)
[2020-08-12] MEDS: THIAMINE HCL 100 MG TABLET PO SCH (08:20)
[2020-08-12] MEDS: LACTOBACILLUS/ACIDOPHILUS TAB PO SCH ×3 (08:20→19:50)
[2020-08-12] MEDS: lisinopriL 5 MG TAB PO SCH (08:20)
[2020-08-12] MEDS: VITAMIN D 1000 UNIT TAB PO SCH (08:20)
[2020-08-12] MEDS: ASCORBIC ACID 500 MG TABLET PO SCH ×3 (08:20→19:49)
[2020-08-12] MEDS: levETIRAcetam 500 MG TAB PO SCH ×2 (08:20→19:49)
[2020-08-12] MEDS: JUVEN PACKET PO SCH ×2 (08:21→19:50)
[2020-08-12] MEDS: ZINC SULFATE 220 MG CAP PO SCH (08:21)
--- NOTE | 2020-08-12 09:11 | P.PN ---
Subjective Date of Service: 08/12/20 Primary Care Provider: Previously see by Dr. Garcia Chief Complaint: Unresponsiveness Subjective: No new changes, Doing well Physical Examination - Vital Signs Temperature: 99.0 F Blood Pressure: 114/63 Pulse: 100 Respirations: 14 Pulse Ox (%): 91 - Studies Laboratory Data (last 24 hrs) 08/11/20 13:35: Potassium 3.5 Medications List Reviewed: Yes Assessment & Plan Discharge Plan: Transfer ([facility]) Plan to discharge in: 24 Hours Physician Review Additional Text: Impression: Unresponsiveness status post seizure complicated with history of ruptured aneurysm requiring craniotomy now with MRI findings of suspicious right-sided subdural empyema Hypertension COVID 19 positive, asymptomatic Plan: Unresponsiveness status post seizure complicated with history of ruptured aneurysm requiring craniotomy now with MRI findings of suspicious right-sided subdural empyema: Patient clinically stable. Patient remains afebrile. No further seizures. Some anxiety noted. Still waiting on bed available at [facility]. Spoke with neurosurgery and hospitalist the other day who has agreed for acceptance. Repeat COVID test still positive. Continue with vitamin supplementation. Patient continues with Keppra 750 mg 1 pill twice daily. Patient remains on on IV Rocephin and vancomycin. MRI reviewed with Neurology the other day. Suspect Right-sided subdural empyema noted. Patient will require further evaluation and likely drainage of empyema. Await for bed and transfer. Patient agrees with plan of care. Spoke with family yesterday about plan. Hypertension: Continue lisinopril. Parameters in place. COVID 19 positive, asymptomatic: Patient asymptomatic. Unremarkable. Will monitor closely. Room-air saturations within normal range. Time Spent Managing Pts Care (In Minutes): 55
[2020-08-12] MEDS ORDERED: LORAZEPAM 0.5 MG TABLET PO PRN (09:12)
--- NOTE | 2020-08-13 00:18 | P.DS ---
Admission Date: 08/11/20 Discharge Date: 08/13/20 Primary Care Provider: Previously see by Dr. Garcia Disposition: TRANSFER TO [facility] Discharge Condition: GOOD Reason for Admission: Unresponsiveness Consultations: Neurology: Dr. Falk Procedures: Chest x-ray: FINDINGS: Unremarkable cardiac and mediastinal silhouette. Heart size is normal. Lungs are clear without focal opacity, pneumothorax or pleural effusions. Limited evaluation, however the bilateral lower lungs secondary to overlying breast soft tissue density. Upright PA and lateral radiography is recommended when the patient is clinically able. The visualized bones are within normal limits. IMPRESSION: No acute cardiopulmonary abnormalities. Limited evaluation, however the bilateral lower lungs secondary to overlying breast soft tissue density. Upright PA and lateral radiography is recommended when the patient is clinically able. CT head: FINDINGS: Postoperative changes of a RIGHT frontal pterional craniotomy identified affixed with surgical plates. Portion of the inferior pterional craniotomy appears to be incompletely affixed to the adjacent calvarium. Fluid collection is identified subjacent to the craniotomy site measuring up to 9 mm in thickness, (series 201, image 18) with low attenuation contents suggesting chronic collection. Additionally, a small volume of similar-appearing density fluid is identified within the deep subcutaneous tissues directly abutting the calvarium measuring up to 5 mm in thickness, (series 201, image 16). Gliosis and encephalomalacia is identified at the level of the RIGHT parietal lobe suggesting sequela of prior tumor/postoperative change and/or infarction. Cystic type fluid collection is identified within this level may reflect surgical bed with possible communication to the RIGHT occipital horn. The extra-axial fluid collection subjacent to the craniotomy site is of indeterminate age and may reflect postoperative hematoma, seroma, however the possibility of infectious process including subdural empyema cannot be excluded on a noncontrast CT examination. Likewise the subcutaneous fluid collection may reflect postoperative change however infection cannot be excluded. Multifocal regions of patchy hypoattenuation are present in a subcortical and periventricular deep white matter distribution, nonspecific; however, most likely represent small vessel ischemic disease, age indeterminate. The ventricles, sulci, and cisterns are symmetric and unremarkable. The umaña- white matter differentiation is preserved. There is no mass effect, midline shift, intra- or extra-axial fluid collection/acute hemorrhage. The osseous structures are unremarkable. The paranasal sinuses and mastoid air cells are clear. IMPRESSION: 1. No acute intracranial abnormalities. 2. Fluid collection identified adjacent to the craniotomy site raising the concern for postoperative chronic appearing hematoma/seroma, however the possibility of infectious process including subdural empyema cannot be excluded. Further evaluation with MRI pre and postcontrast is recommended. MRI brain: Enhancement of the dura adjacent to the craniotomy site is noted. There is also mild enhancement in the right postsurgical parietooccipital region. Right-sided extra-axial fluid along the right craniotomy site is noted, measuring 9 mm in maximum thickness. Some diffusion restriction is seen within the fluid as well as the adjacent surgical cavity on DWI imaging. Mild oblong fluid collection is also seen along the right scalp in this region measuring up to 8 mm in thickness. There is minimal right to left midline shift seen. IMPRESSION: Moderate motion degradation is present limiting evaluation. Collected MRI findings detailed above are suspicious for right-sided subdural empyema/infection.Recommend correlation with clinical signs and symptoms. 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 Patient also tested positive for Romano virus. Hospital Course: Patient presented to the emergency department unresponsive, CT brain was performed which revealed possible subdural empyema status post craniotomy secondary to her ruptured aneurysm. Patient also tested positive for Romano virus. Patient was admitted, neurology was consulted who recommended MRI, MRI was obtained which demonstrated suspected subdural empyema. At this time neurology/neurosurgery were consulted again, patient was initiated on IV antibiotic therapy. White blood cell count remained normal pro calcitonin negative, patient did not appear septic normal mental status at this time. Recommendation for transfer to tertiary center for neuro surgical evaluation with possible craniotomy/drainage of empyema. Patient transferred to [facility] in [place] for further evaluation and management. Vital Signs/Physical Exam: Temp Pulse Resp BP Pulse Ox 97.3 F 91 H 18 128/63 94 08/12/20 20:00 08/12/20 20:00 08/12/20 20:00 08/12/20 20:00 08/12/20 20:00 General: Alert, In no apparent distress HEENT: Atraumatic, PERRLA, EOMI Neck: Supple, JVD not distended Respiratory: Clear to auscultation bilaterally, Normal air movement Cardiovascular: Regular rate/rhythm, Normal S1 S2 Gastrointestinal: Normal bowel sounds, No tenderness Musculoskeletal: No tenderness Integumentary: No rashes Neurological: Normal speech, Normal tone, Normal affect Laboratory Data at Discharge: WBC 5.20 K/uL (4.3-10.9) 08/10/20 05:22 Hgb 11.3 g/dL (12.0-15.0) L 08/10/20 05:22 Hct 35.1 % (36.0-45.0) L 08/10/20 05:22 Plt Count 195 K/uL (152-406) 08/10/20 05:22 PT 13.1 SECONDS (9.5-12.5) H 08/08/20 20:55 INR 1.14 08/08/20 20:55 Sodium 142 mmol/L (136-145) 08/12/20 03:26 Potassium 4.0 mmol/L (3.5-5.1) 08/12/20 12:01 BUN 3 mg/dL (7-18) L 08/12/20 03:26 Creatinine 0.43 mg/dL (0.55-1.3) L 08/12/20 03:26 Glucose 80 mg/dL (74-106) 08/12/20 03:26 Magnesium 2.1 mg/dL (1.8-2.4) 08/08/20 20:55 Total Bilirubin 0.5 mg/dL (0.2-1.0) 08/12/20 03:26 AST 18 U/L (15-37) 08/12/20 03:26 ALT 16 U/L (12-78) 08/12/20 03:26 Alkaline Phosphatase 112 U/L (45-117) 08/12/20 03:26 Home Medications: Acetaminophen [Tylenol Extra Strength] 500 mg PO TID 07/14/20 Famotidine [Pepcid] 20 mg PO BID 07/14/20 Folic Acid 1 mg PO DAILY 07/14/20 Levetiracetam [Keppra] 750 mg PO BID 07/14/20 Lisinopril [Zestril] 5 mg PO DAILY 07/14/20 Amlodipine Besylate 5 mg PO DAILY 08/12/20 Physician Discharge Instructions: Continue with care at [facility] in [place]. Followup: NONE,NONE [Primary Care Provider] - Time spent managing pt's care (in minutes): 55
[2020-08-13 00:57] VITALS: BP 128/71; TEMP 98.9; O2SAT 91
== END 2020-08-13 00:57 | disposition short-term general hospital (02) | DRG 94 ==
LOC: ER 20:05 → ERHOLD 08-09 01:04 → 4TH 08-09 07:32 → OBSVTOIN 08-11 15:45
PROVIDERS: ADMIT Internal Medicine; ATTEND Family Medicine
DX: G06.0 Intracranial abscess and granuloma (principal); U07.1 COVID-19; J12.82 Pneumonia due to coronavirus disease 2019; E87.6 Hypokalemia; F41.9 Anxiety disorder, unspecified; I10 Essential (primary) hypertension; R19.7 Diarrhea, unspecified; Z88.8 Allergy status to other drugs, medicaments and biological substances; Z79.899 Other long term (current) drug therapy; Z86.73 Personal history of transient ischemic attack (TIA), and cerebral infarction without residual deficits; Z85.41 Personal history of malignant neoplasm of cervix uteri; Z90.710 Acquired absence of both cervix and uterus
CPT/HCPCS: 0240U; 36415; 70450; 70553; 71045; 80048; 80053; 80076; 80202; 81003; 83605; 83735; 83880; 84132; 84145; 84443; 84484; 85025; 85610; 87040; 87205; 87324; 87449; 93005; 96361; 96374; 97110; 97112; 97116; 97161; 99285; A9577; G0378; J0696; J1644; J1953; J3370; J3480; J7030; J7040; J8540; U0003

== ENCOUNTER 2021-02-07 10:53 | Emergency (ER) | payer BC ==
--- OUTSIDE RECORDS SUMMARY | 2021-02-07 10:59 | XMS REPORT | Continuity of Care Document ---
:[address] [facility] t Address [address] [place] [address] Care Team Providers Name Role Phone Mer Brooks Primary Care Physician Andreas HOPE Attending Clinician Luke HOPE Attending Clinician Mark Anthony Velasquez MD Attending Clinician Ja Attending Clinician Unavailable Pancho Arteaga MD Attending Clinician Marianne HOPE Attending Clinician Unavailable ANDREAS Attending Clinician Unavailable Char Dhillon Attending Clinician Unavailable Peter HOPE Attending Clinician Lorna Sharpe MD Attending Clinician Donald Cornejo MD Attending Clinician Wanda Bonner MD Attending Clinician Donya Ferrell MD Attending Clinician [phone] Lauryn HOPE Attending Clinician Serge HOPE Attending Clinician LORNA SHARPE Attending Clinician Unavailable Elizabeth HOPE Attending Clinician Tayla Dominguez MD Attending Clinician Edmond Hawk MD Attending Clinician Dutch Osullivan MD Attending Clinician Sandi Turner MD Attending Clinician Idris HOPE, Cooper Attending Clinician Celetse Gary MD Attending Clinician TAYLA DOMINGUEZ Attending Clinician Unavailable Daniel Attending Clinician Stevie Cohen Attending Clinician Aren Parkinson MD Attending Clinician ANDREAS Admitting Clinician Unavailable Wanda BONNER Admitting Clinician Unavailable EDMOND HAWK Admitting Clinician Unavailable Payers Payer Name Policy Type Policy Effective Date Expiration Date Sour ce Number BLUE CROSS/BLUE [id number] [facility] [employer] ADV 00:00:00 - [facility] [id number] 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 empyema 2-19 [facility] - 00:00: Medical 00 Center COVID-19 COVID-19 Disease Active [facility] virus virus 2-19 [facility] - infection infection 00:00: Medi joseph 00 Center Cerebral Cerebral Disease Active [facility] seizure seizure 2-19 [facility] - 00:00: Medical 00 Center Gastroesop Gastroesop Disease Active [facility] hageal hageal 2-19 [facility] - reflux reflux 00:00: Medical disease disease 00 Center 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[facility] cerebral cerebral 2-19 [facility] - infarction infarction 00:00: Me dical 00 Center 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[facility] craniotomy craniotomy 08-13 [facility] - 00:00: Medical 00 [place] 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[facility] intracrani intracrani 08-13 [facility] - al al 00:00: Medical hemorrhage hemorrhage 00 Ce nter Hypertensi Hypertensi Disease Active [facility] on on 08-13 [facility] - 00:00: Medical 00 [place] Non-healin Non-healin Disease Active [facility] g surgical g surgical 08-13 [facility] - wound wound 00:00: Medical 00 [place] Open wound Open wound Disease Active [facility] of head of head 08-13 [facility] - with with 00:00: Medical complicati complicati 00 Ce nter on on Pressure Pressure Disease Active [facility] injury of injury of 08-13 [facility] - head, head, 00:00: Medical unstageabl unstageabl 00 Ce nter e e Weakness Weakness Disease Active [facility] of left of left 08-13 kes - side of side of 00:00: Medical body body 00 Center Allergies, Adverse Reactions, Alerts Allergy Allergy Status Severity Reaction(s) Onset Inactive Treating Comm ents Source Name Type Date Date Clinician Aspirin Drug Active Pt states [facility]-15 [facility] - nce 00:00: takes Medical 00 aspirin, Center she gets severe abd cramps Social History Social Habit Start Date Stop Date Quantity Comments Source History of Current smoker [facility] - tobacco use Medical Cente r Sex Assigned At [facility] Exposure to Not sure [facility] - SARS-CoV2 [facility] (event) Tobacco use and 2021-02-03 2021-02-03 Never used [facility] - exposure 00:00:00 00:00:00 [facility] Alcohol intake 2021-02-03 2021-02-03 Ex-drinker [facility] - 00:00:00 00:00:00 (finding) [facility] Smoking Status Start Date Stop Date Source Former smoker 2021-02-03 00:00:00 2021-02-03 00:00:[address] [facility] Medications Ordered Filled Start Stop Current Ordering Indication Dosage Frequency Signature Comments Components Source Medication Medication Date Date Medication? Clinician (SIG) Name Name levETIRAcet Yes 750mg Q.5D Take [address] am (KEPPRA) 8-14 mg by [facility] - 750 MG 15:57: mouth 2 Medical tablet 37 (two) Center times daily. GABAPENTIN Yes QD Take by [facility] ORAL 8-14 mouth [facility] - 15:57: nightly. Medical [address] [place] [address] atorvastati Yes 20mg QD Take [address] n (LIPITOR) 8-14 by mouth Luke s - 20 MG 15:57: daily. Medical tablet 37 Center bacitracin 2020- Yes 1g [id number] Apply [address] 500 8-05 02-24 [id number] topically [facility] - unit/gram 00:00: 23:59 3D 3 (three) Me dical ointment 00 :00 times Center daily for 10 days. bacitracin 2020- Yes 1g Q.[id number] Apply [address] 500 8-14 08-24 [id number] topically [facility] - unit/gram 00:00: 23:59 3D 3 (three) Me dical ointment 00 :00 times Center daily for 10 days. melatonin 5 Yes 5mg Take [address] mg Tab 4-02 tablet (5 [facility] - tablet 00:00: mg total) Medica l 00 by mouth Center every night as needed (insomnia) . magnesium Yes 400mg QD Take 1 [facility] oxide 4-02 tablet [facility] - (MAG-OX) 00:00: (400 mg Medica l 400 mg 00 total) by Center (241.3 mg mouth magnesium) daily. tablet nystatin 2021- No Q.5D Apply [facility] (MYCOSTATIN 4-02 04-02 topically [facility] - ) 100,000 00:00: 23:59 2 (two) Medi joseph unit/gram 00 :00 times Center cream daily. levETIRAcet 2020- No 750mg Q.5D Take [address] am (KEPPRA) 4-02 05-02 tablet [facility] - 750 MG 00:00: 23:59 (750 mg Medical tablet 00 :00 total) by Center mouth 2 (two) times daily for 30 days. lisinopriL 2020- No 10mg QD Take [address] (PRINIVIL,Z 09-24 05-02 tablet (10 L u[facility] - ESTRIL) 10 00:00: 23:59 mg total) M edical MG tablet 00 :00 by mouth Center daily for 30 days. magnesium No 400mg QD Take [address] oxide 09-20 tablet [facility] - (MAG-OX) 00:00: 00:00 (400 mg Medic al 400 mg 00 :00 total) by Center (241.3 mg mouth magnesium) daily. tablet hydrALAZINE No 25mg QD Take [address] (APRESOLINE 09-19 by mouth [facility] - ) 25 MG 17:48: 00:00 daily. Medical tablet 20 :00 [place] citalopram No 20mg QD Take [address] (CeleXA) 20 09-19 by mouth Purvi [facility] - MG tablet 17:48: 00:00 daily. Medic al 20 :00 [place] mirtazapine No 15mg QD Take [address] (REMERON) 09-19 by mouth [facility]ukes - 15 MG 17:48: 00:00 nightly. Medical tablet 20 :00 [place] melatonin 5 2020- No 5mg Take [address] mg Tab 09-19 tablet (5 [facility] - tablet 00:00: 00:00 mg total) Medic al 00 :00 by mouth Center every night as needed (insomnia) . cefTRIAXone 2020- No 2g Inject [address] (ROCEPHIN) 09-19 intravenou [facility] - MBP 2 g in 00:00: 00:00 sly every M edical 100 mL NS 00 :00 12 Center (twelve) hours for 4 days. vancomycin- 2020- No 750mg Inject [address] water 09-19- mLs (750 [facility] - inject, 00:00: 00:00 mg total) Medi joseph PEG, (VANCO 00 :00 intravenou Ce nter READY) 1.25 sly every gram/250 mL 12 PgBk (twelve) hours for 4 days. acetaminoph 2020- No 650mg Take [address] en 09-19- tablets [facility]ukes - (TYLENOL) 00:00: 00:00 (650 mg Medi joseph 325 MG 00 :00 total) by Center tablet mouth every 6 (six) hours as needed for Pain or Fever (headache) . levETIRAcet 2020- No 750mg Q.5D Take [address] am (KEPPRA) 08-24 tablet [facility] - 750 MG 00:00: 23:59 (750 mg Medical tablet 00 :00 total) by Center mouth 2 (two) times daily for 30 days. lisinopriL 2020- No 5mg QD Take [address] (PRINIVIL,Z 08-24 tablet (5 [facility] - ESTRIL) 5 00:00: 23:59 mg total) Me dical MG tablet 00 :00 by mouth Center daily for 30 days. cefTRIAXone 2020- No 2g Inject [address] (ROCEPHIN) 08-24 intravenou [facility] - MBP 2 g in 00:00: 00:00 sly every M edical 100 mL NS 00 :00 12 Center (twelve) hours for 30 days. vancomycin- 2020- No 1250mg Inject [address] water 08-24- mLs (1,250 [facility] - inject, 00:00: 00:00 mg total) Medi joseph PEG, (VANCO 00 :00 intravenou Ce nter READY) 1.25 sly every gram/250 mL 12 PgBk (twelve) hours for 30 days. docusate 2020- No 100mg Q.5D Take 1 [facility] t sodium 08-24 capsule [facility] - (COLACE) 00:00: 23:59 (100 mg Medic al 100 MG 00 :00 total) by Center capsule mouth 2 (two) times daily for 10 days. acetaminoph 2020- No 1{tbl} Take [address] en-codeine 08-24 tablet by Purvi [facility] - (TYLENOL 00:00: 23:59 mouth Medical #3) 300-30 00 :00 every 8 Center mg per (eight) tablet hours as needed for up to 7 days. Max Daily Amount: 3 tablets acetaminoph No THREE [facility] en (Tylenol 1-20 03-02 TIMES A Luke s - Extra 00:00: 00:00 DAY Medical Strength) 00 :00 [place] 500 MG tablet lisinopriL 2020- No 5mg QD Take [address] (PRINIVIL,Z 07-05 by mouth Purvi es - ESTRIL) 5 00:00: 00:00 daily. Medic al MG tablet 00 :00 [place] folic acid Yes 1mg QD Take [address] (FOLVITE) 07-02 by mouth Luke s - MG tablet 00:00: daily . Medic al 00 [place] levETIRAcet No 250mg Q.5D Take [address] am (KEPPRA) 07-02 03-02 mg by [facility] - 250 MG 00:00: 00:00 mouth 2 Medical tablet 00 :00 (two) Center times daily. Vital Signs Vital Name Observation Time Observation Value Comments Source Systolic blood 2021-02-05 12:15:00 105 mm[Hg] [facility] Diastolic blood 2021-02-05 12:15:00 57 mm[Hg] [facility] Heart rate 2021-02-05 12:15:00 86 /min [facility] Respiratory rate 2021-02-05 12:15:00 19 /min [facility] Oxygen saturation in 2021-02-05 12:15:00 96 /min [facility] Arterial blood by Medical Ce nter Pulse oximetry Body temperature 2021-02-05 07:24:00 36.94 Gracy [facility] Body height 2021-02-02 18:00:00 170.2 cm [facility] Body weight 2021-02-02 18:00:00 69.9 kg [facility] BMI 2021-02-02 18:00:00 24.13 kg/m2 [facility] Procedures Procedure Date / Time Performing Clinician Source Performed CT BRAIN WITHOUT IV 2021-02-04 16:52:[address] [facility] CRANIOPLASTY 2021-02-03 12:41:00 Andreas [facility] TRANSFER/ 2021-02-03 12:41:00 Dorian Green [facility],ADJACENT Medical C enter TISSUE HEAD/ NECK BASIC METABOLIC PANEL (7) 2021-02-03 02:36:00 Cuco Richardson CH I [facility] PROTHROMBIN TIME/INR 2021-02-03 02:36:00 Richardson [facility] APTT 2021-02-03 02:36:00 Cuco Richardson [facility] XR CHEST 1 VIEW PORTABLE 2021-02-02 21:20:00 Star Dutton [facility] - / BEDSIDE Medical Center ECG 12-LEAD 2021-02-02 19:38:12 Star Dutton [facility] TYPE AND SCREEN, 2021-02-02 18:03:00 Star Dutton [facility] CBC (HEMOGRAM ONLY) 2021-02-02 17:13:00 Cuco Richardson [facility] [place] CEREBRAL 4 VESSEL 2021-02-02 12:45[facility] POCT-SODIUM 2021-02-02 10:52:00 Tansandip [facility] POCT-POTASSIUM 2021-02-02 10:52[facility] 2021-02-02 10:52:00 Tansandip [facility] POCT-HEMOGLOBIN 2021-02-02 10:52:[facility]-HEMATOCRIT 2021-02-02 10:52:[facility] PO[facility]-CHLORIDE 2021-02-02 10:52:00 [facility] PO[facility]-CALCIUM IONIZED 2021-02-02 10:52:00 Andreas [facility] POCT-BUN 2021-02-02 10:52:00 Tanweadryan [facility] POCT-GLUCOSE 2021-02-02 10:52:00 [facility] CBC W/PLT COUNT & AUTO 2021-02-02 10:42:00 Lucero Howard [facility] PT/APTT 2021-02-02 10:42:00 Lucero Howard [facility] SARS-COV2/RT-PCR ([facility] & 2021-01-31 15:13:[address] [facility] REF LABS) [facility] CREATININE 2020-09-24 04:58:00 [facility] CREATININE 2020-09-23 05:13:00 [facility] CREATININE 2020-09-22 05:26:00 [facility] 2020-09-21 05:13:00 [facility] VANCOMYCIN LEVEL, TROUGH 2020-09-21 05:12:00 [facility] CREATININE 2020-09-20 06:11:00 [facility] CREATININE 2020-09-19 04:43:00 [facility] SARS-COV2/RT-PCR ([facility] & 2020-09-18 04:59:00 Shankar Jorgensen [facility] REF LABS) [facility] BASIC METABOLIC PANEL (7) 2020-09-17 04:47:00 Jammie Combs [facility] MAGNESIUM 2020-09-17 04:47:00 Jammie Combs [facility] VANCOMYCIN LEVEL, TROUGH 2020-09-17 04:47:00 [facility] CBC (HEMOGRAM ONLY) 2020-09-16 04:52:00 Lauryn Jammie [facility] BASIC METABOLIC PANEL (7) 2020-09-16 04:52:00 Lauryn Jammie I [facility] VANCOMYCIN LEVEL, TROUGH 2020-09-15 11:28:00 Lauryn Jammie [facility] VANCOMYCIN LEVEL, TROUGH 2020-09-15 02:25:00 Tati Machado [facility] BASIC METABOLIC PANEL (7) 2020-09-13 16:10:00 Tati Machado [facility] EEG AWAKE AND DROWSY 2020-09-13 11:50:00 [facility] POCT-GLUCOSE METER 2020-09-13 11:27:00 [facility] BLOOD CULTURE 2020-09-12 05:57:[address] [facility] URINALYSIS W/ MICROSCOPIC 2020-09-12 02:09:00 [facility] BLOOD CULTURE 2020-09-11 20:18:[address] [facility] ECG 12-LEAD 2020-09-10 09:43:44 Unknown, Hl7 Doctor [facility] TSH/FREE T4 IF INDICATED 2020-09-10 04:52:00 Milagros Bonner [facility] VITAMIN B12 2020-09-10 04:52:00 Milagros Bonner [facility] BLOOD GAS, VENOUS 2020-09-10 02:40:00 Tenisha Sharpe [facility] BLOOD CULTURE 2020-09-10 02:39:00 Tenisha Sharpe [facility] CBC W/PLT COUNT & AUTO 2020-09-10 02:27:00 Tenisha Sharpe [facility] COMPREHENSIVE METABOLIC 2020-09-10 02:27:[address] [facility] MAGNESIUM 2020-09-10 02:27:00 Tenisha Sharpe [facility] LACTIC ACID, VENOUS 2020-09-10 02:27:00 Tenisha Sharpe [facility] TROPONIN I 2020-09-10 02:27:00 Tenisha Sharpe [facility] AMMONIA 2020-09-10 02:26:00 Tenisha Sharpe [facility] PT/APTT 2020-09-10 02:26:00 Tenisha Sharpe [facility] APTT 2020-09-10 02:26:00 Tenisha Sharpe [facility] XR CHEST 1 VIEW PORTABLE 2020-09-09 22:46:00 Tenisha Sharpe [facility] / BEDSIDE [facility] CT BRAIN WITHOUT IV 2020-09-09 20:30:[address] [facility] REPORT OF PROCEDURE - 2020-09-09 00:00:00 Provider, Queta [facility] ENDOSCOPY SCAN Scanning [facility] CBC W/PLT COUNT & AUTO 2020-08-24 05:56:00 Renata Gary [facility] BASIC METABOLIC PANEL (7) 2020-08-24 05:56:00 Renata Gary [facility] VANCOMYCIN LEVEL, TROUGH 2020-08-24 05:56:00 Gil Urban [facility] CBC W/PLT COUNT & AUTO 2020-08-23 05:10:00 Renata Gary [facility] BASIC METABOLIC PANEL (7) 2020-08-23 05:10:00 Luigi Garychester Celeste [facility] VANCOMYCIN LEVEL, TROUGH 2020-08-22 09:33:00 Gil Urban [facility] CBC W/PLT COUNT & AUTO 2020-08-22 09:33:00 Renata Gary [facility] CREATININE 2020-08-22 04:24:00 Gil Urban [facility] CBC W/PLT COUNT & AUTO 2020-08-21 04:53:00 Renata Gary [facility] BASIC METABOLIC PANEL (7) 2020-08-21 04:53:00 Renata Gary [facility] VANCOMYCIN LEVEL, TROUGH 2020-08-20 10:36:00 Gil Urban [facility] CREATININE 2020-08-20 05:46[facility]00 [facility] CHEST 1 VIEW PORTABLE 2020-08-19 14:58:00 Castro Steinberg [facility] / BEDSIDE [facility] VANCOMYCIN LEVEL, TROUGH 2020-08-18 09:57:[address] [facility] POCT-GLUCOSE METER 2020-08-17 17:42:00 Abran Banner [facility] POCT-GLUCOSE METER 2020-08-17 12:14:00 Abran Banner [facility] POCT-GLUCOSE METER 2020-08-17 07:31:00 Martha Turner [facility] SARS-COV2/RT-PCR ([facility] & 2020-08-17 06:38:00 Abran [facility] - REF LABS) [facility] CBC W/PLT COUNT & AUTO 2020-08-17 05:56:00 Stevie Dotson [facility] COMPREHENSIVE METABOLIC 2020-08-17 05:56:00 Stevie Dotson [facility] MAGNESIUM 2020-08-17 05:56:00 Stevie Dotson [facility] PHOSPHORUS 2020-08-17 05:56:00 Stevie Dotson [facility] POCT-GLUCOSE METER 2020-08-16 20:18:00 Martha Turner [facility] CBC W/PLT COUNT & AUTO 2020-08-16 04:21:00 Stevie Dotson [facility] COMPREHENSIVE METABOLIC 2020-08-16 04:21:[address] [facility] MAGNESIUM 2020-08-16 04:21:[address] [facility] PHOSPHORUS 2020-08-16 04:21:[address] [facility] CBC W/PLT COUNT & AUTO 2020-08-15 07:04:00 Stevie Dotson [facility] COMPREHENSIVE METABOLIC 2020-08-15 07:04:[address] [facility] MAGNESIUM 2020-08-15 07:04:[address] [facility] PHOSPHORUS 2020-08-15 07:04:[address] [facility] POCT-GLUCOSE METER 2020-08-15 06:35:00 Martha Turner [facility] POCT-GLUCOSE METER 2020-08-15 00:52:00 [facility] VANCOMYCIN LEVEL, TROUGH 2020-08-14 21:29:00 Castro Mills [facility] CTA BRAIN 2020-08-14 09:37:00 Jose Francisco Woodson [facility] BASIC METABOLIC PANEL (7) 2020-08-14 03:42:00 Stevie Dotson [facility], [facility] MAGNESIUM 2020-08-14 03:42:[address] [facility] PHOSPHORUS 2020-08-14 03:42:[address] [facility] CBC (HEMOGRAM ONLY) 2020-08-14 03:42:[address] [facility] PROTHROMBIN TIME/INR 2020-08-14 03:42:[address] [facility] APTT 2020-08-14 03:42[facility] PORTABLE 2020-08-14 01:06:00 Jovanna Beal [facility] / BEDSIDE [facility] AFB CULTURE + SMEAR 2020-08-13 13:10:54 Les Parkinson [facility] (NON-SPUTUM) [facility] ANAEROBIC CULTURE 2020-08-13 13:10:54 IggyLes [facility] FUNGUS CULTURE + SMEAR 2020-08-13 13:10:54 IggyLes [facility] SURGICALLY OBTAINED 2020-08-13 13:10:54 IggyMilkart Aren [facility] - CULTURE + GRAM STAIN Medical [facility] ter CSF CULTURE + GRAM STAIN 2020-08-13 13:10:00 Les Parkinson [facility] LURDES INK PREP 2020-08-13 13:10:00 IggyLes [facility] AFB CULTURE + SMEAR 2020-08-13 12:54:52 IggyLes [facility] (NON-SPUTUM) [facility] ANAEROBIC CULTURE 2020-08-13 12:54:52 Iggy Les Aren [facility] SURGICALLY OBTAINED 2020-08-13 12:54:52 Iggy [facility] - CULTURE + GRAM STAIN Medical [facility] ter TISSUE EXAM 2020-08-13 12:51:00 IggyLes [facility] CRANIOTOMY 2020-08-13 11:28:00 [facility] ABORH, MANUAL 2020-08-13 08:29:00 Leticia Calderon [facility] SARS-COV2/INFLUENZA/RSV 2020-08-13 05:26:00 Reyes Hernandes [facility] - RT-PCR [facility] BLOOD CULTURE 2020-08-13 05:17:00 [facility] TYPE AND SCREEN, 2020-08-13 05:09:00 Racheal Mason [facility] BASIC METABOLIC PANEL (7) 2020-08-13 05:08:00 Mathew Hawk [facility] HEPATIC FUNCTION PANEL 2020-08-13 05:08:00 Mathew Hawk [facility] PROTHROMBIN TIME/INR 2020-08-13 05:08:00 Mathew Hawk [facility] MAGNESIUM 2020-08-13 05:08:00 [facility] 2020-08-13 05:08:00 [facility] CBC W/PLT COUNT & AUTO 2020-08-13 05:08:00 [facility] BLOOD CULTURE 2020-08-13 05:08:00 [facility] Plan of Care Planned Activity Planned Date Details Comments Source Future Scheduled 2021-02-[address] [facility] - Test 00:00:00 (#1) [code = [facility] INFLUENZA VACCINE (#1)] Future Scheduled 2006 SHINGLES VACCINES ([address] [facility] - Test 00:00:00 of 2) [code = [facility] SHINGLES VACCINES (1 of 2)] Future Scheduled [address] [facility] - Test 00:00:00 (procedure) [code = [facility] 65741442] Future Scheduled [address] [facility] - Test 00:00:00 malignant neoplasm Medical C enter of cervix (procedure) [code = 738631735] Future Scheduled 1975-11-21 DTAP/TDAP/TD [facility] Test 00:00:00 VACCINES (1 - Tdap) [facility] [code = DTAP/TDAP/TD VACCINES (1 - Tdap)] Future Scheduled [address] [facility] - Test 00:00:00 SCREENING [code = [facility] nter HEPATITIS C SCREENING] Future Scheduled 1968 COVID-19 VACCINE (1) [facility] - Test 00:00:00 [code = COVID-[address] VACCINE (1)] Future Scheduled [address] [facility] - Test 00:00:00 malignant neoplasm Medical C enter of breast (procedure) [code = 125731397] Future Scheduled [address] [facility] - Test 00:00:00 malignant neoplasm Medical C enter of colon (procedure) [code = 891836133] Encounters Start End Encounter Admission Attending Care Care Encounter Source Date/Time Date/Time Type Type Clinicians Facility Department ID 2020-11-03 2020-11-03 Office AMENA Green [id number] 10:25:14 12:04:23 Visit Edward AMBULATOR [id number] Y [id number] Results Test Description Test Time Test Comments Results Result Sour e Comments CT, BRAIN, 2021-01-23 Unlisted Reason WITHOUT CONTRAST 3 for Exam - Click 17:51:00 Yes and Enter Reason [facility] d Reason for ANTONIO CERVANTES Exam->s/p STACIE : cranioplasty 1955 Sex: F FINAL REPORT CT, BRAIN, WITHOUT CONTRAST INDICATION: Unlisted Reason for Exams/p cranioplasty TECHNIQUE: Noncontrast axial imaging was obtained from the vertex to the skull base. Axial images were reconstructed using a bone algorithm. DOSE REDUCTION: Dose modulation, iterative reconstruction, and/or weight-based adjustment of the mA/kV was utilized to reduce the radiation dose to as low as reasonably achievable. COMPARISON: CT 12/21/2020 FINDINGS: Intracranial: Right-sided craniectomy for decompression of previous subdural collection, with interval placement of cranioplasty flap. There is a trace extra-axial collection with scattered pneumocephalus. The sunken appearance of the right cerebral hemisphere has resolved, and there is no significant midline shift. Unchanged white matter volume loss in the right cerebral hemisphere and ex vacuo dilatation of the right lateral ventricle. No evidence of acute territorial infarct. No mass effect. No hydrocephalus. Osseous structures: Right-sided cranioplasty without offset. No fracture. No suspicious lesion. Paranasal sinuses and mastoid air cells: No evidence of sinusitis. Mastoids are clear. Orbital contents: Globes are intact. IMPRESSION: No evidence of complication following right-sided cranioplasty. Trace extra-axial collection without midline shift. Signed: Lorna Stack Verified Date/Time: 02/04/2021 17:51:16 brain without 2021-01-23 Interface, External [facility] IV contrast 3 Ris In - 02/04/2021 Luke s - 17:51:00 5:53 PM CDTFINAL Medical REPORT PATIENT ID: [place] [id number] CT, BRAIN, WITHOUT CONTRAST INDICATION: Unlisted Reason for Exams/p cranioplasty TECHNIQUE: Noncontrast axial imaging was obtained from the vertex to the skull base. Axial images were reconstructed using a bone algorithm. DOSE REDUCTION: Dose modulation, iterative reconstruction, and/or weight-based adjustment of the mA/kV was utilized to reduce the radiation dose to as low as reasonably achievable. COMPARISON: CT 12/21/2020 FINDINGS: Intracranial: Right-sided craniectomy for decompression of previous subdural collection, with interval placement of cranioplasty flap. There is a trace extra-axial collection with scattered pneumocephalus. The sunken appearance of the right cerebral hemisphere has resolved, and there is no significant midline shift. Unchanged white matter volume loss in the right cerebral hemisphere and ex vacuo dilatation of the right lateral ventricle. No evidence of acute territorial infarct. No mass effect. No hydrocephalus. Osseous structures: Right-sided cranioplasty without offset. No fracture. No suspicious lesion. Paranasal sinuses and mastoid air cells: No evidence of sinusitis. Mastoids are clear. Orbital contents: Globes are intact. IMPRESSION: No evidence of complication following right-sided cranioplasty. Trace extra-axial collection without midline shift. Signed: Lorna Stack Verified Date/Time: 02/04/2021 17:51:16 12 lead 2021-01-23 Interface, External [facility] 2 Ris In - 02/03/2021 [facility] - 10:44:40 10:44 AM Medical CDTVentricular Rate Cente r 64 BPMAtrial Rate 64 BPMP-R Interval 168 msQRS Duration 90 msQ-T Interval 412 msQTC Calculation(Bazett) 425 msP [place] 65 degreesR [place] 27 degreesT [place] 76 degreesNormal sinus rhythmNormal ECGWhen compared with ECG of 10-SEP-2020 09:43,T wave inversion no longer evident in Anterior leadsConfirmed by MD Manuel Roberto ([id number]) on 02/03/2021 10:44:32 AM Basic metabolic panel 2021-02-03 04:54:00 Test Item Value Reference Range Interpretation Comme nts Sodium (test code = 140 meq/L 282-792 5842-2) Potassium (test code = 4.0 meq/L 3.5-5.1 2823-3) Chloride (test code = 109 meq/L 98-107 H 2074-0) CO2 (test code = 2027-9) 22 meq/L 22-29 BUN (test code = 3094-0) 21 mg/dL 7-21 Creatinine (test code = 0.73 mg/dL 0.57-1.25 2160-0) Glucose (test code = 86 mg/dL 70-105 2345-7) Calcium (test code = 8.5 mg/dL 8.4-10.2 85267-7) EGFR (test code = 63091-7) 80 mL/min/1.73 sq m ESTIMATED GFR IS NOT ACCURATE CREATININE ANTWAN LELIA IN PREDICTING GLOMERULAR FILT RATION RATE. ESTIMATED GFR IS NOT APPLICAB LE FOR DIALYSIS PATIEN TS. MILLIE (test code = MILLIE) Presetter Operator ID - ADMIN Lab Interpretation (test Abnormal code = 31660-0) [facility] [id number] 04:54:00 Test Item Value Reference Range Interpretation Comments SODIUM (BEAKER) 140 meq/L 136-145 (test code = 381) POTASSIUM (BEAKER) 4.0 meq/L 3.5-5.1 (test code = 379) CHLORIDE (BEAKER) 109 meq/L 98-107 H (test code = 382) CO2 (BEAKER) (test 22 meq/L 22-29 code = 355) BLOOD UREA NITROGEN 21 mg/dL 7-21 (BEAKER) (test code = 354) CREATININE (BEAKER) 0.73 mg/dL 0.57-1.25 (test code = 358) GLUCOSE RANDOM 86 mg/dL 70-105 (BEAKER) (test code = 652) CALCIUM (BEAKER) 8.5 mg/dL 8.4-10.2 (test code = 697) EGFR (BEAKER) (test 80 mL/min/1.73 ESTIMA SANDRA GFR IS code = 1092) sq m NOT ACCURATE CREATININE CLEARANCE IN PREDICTING GLOMERULAR FILTRATION RATE . ESTIMATED GFR I S NOT APPLICABLE FOR DIALYSIS PATIEN TS. Presetter Operator ID - [id number] 03:08:00 Test Item Value Reference Range Interpretation Comments PTT (test code = 71387-0) 32.1 See_Comment [ Automated message] The system whic h generated this result transmitted ref erence range: 22.5 - 3 6.0 seconds. The re ference range was not u sed to interpret this result as normal/abnor mal. Lab Interpretation (test Normal code = 36824-9) [facility] 03:08:00 Test Item Value Reference Range Interpretation Comments PARTIAL THROMBOPLASTIN TIME 32.1 seconds 22.5-36.0 (BEAKER) (test code = 760) Prothrombin time/[id number] 03:07:00 Test Item Value Reference Interpretation Comments Range Protime (test code = 14.2 See_Comment [Autom ated 4922-2) message] The system which generated this result transmitted reference range : 11.9 - 14.2 seconds. The reference range was not used to interpret this result as normal/abnormal . INR (test code = 1.11 See_Comment [Automated 9321-6) message] The system which generated this result transmitted reference range : <=5.90. The reference range was not used to interpret this result as normal/abnormal . MILLIE (test code = RECOMMENDED MILLIE) COUMADIN/WARFARIN INR THERAPY RANGESSTANDARD DOSE: 2.0 - 3.0 Includes: PROPHYLAXIS for venous thrombosis, systemic embolization; TREATMENT for venous thrombosis and/or pulmonary embolus.HIGH RISK: Target INR is 2.5-3.5 for patients with mechanical heart valves. Lab Interpretation Normal (test code = 78496-1) [facility] HospitalPROTHROMBIN TIME/[id number] 03:07:00 Test Item Value Reference Range Interpretation Comments PROTIME (BEAKER) 14.2 seconds 11.9-14.2 (test code = 759) INR (BEAKER) (test 1.11 See_Comment [Automat ed message] code = 370) The system [employer] generated this result transmitted ref erence range: <=5.90. The reference range was not used to int erpret this result as normal/abnormal . RECOMMENDED COUMADIN/WARFARIN INR THERAPY RANGESSTANDARD DOSE: 2.0 - 3.0 Includes: PROPHYLAXIS forvenous thrombosis, systemic embolization; TREATMENT for venous thrombosis and/or pulmonary embolus.HIGH RISK: Target INR is 2.5-3.5 for patients with mechanical heart valves.RAD, CHEST, 1 VIEW, NON [id number] 21:30:00Reason for exam:->pre-opShould this be performed at the bedside?->YesWH[facility]Name[facility] : 1955 Sex: FFINAL REPORT EXAM: Chest one view COMPARISON: September 09, 2020 CLINICAL HISTORY: Preoperative clearance FINDINGS: A calcified granulomas is again noted in the right lung base. There is no evidence of pulmonary consolidation, pleural effusion, or pneumothorax. The cardiacsize is within normal limits. The regional osseous structures are unremarkable. IMPRESSION: 1. No radiographic evidence of acute cardiorespiratory disease. Signed: Mook Landort Verified Date /Time: 02/02/2021 21:30:13 XR chest 1 view portable / [id number] 21:30:00 Interface, External Ris In - 02/02/2021 9:32 PM CDTFINAL REPORT EXAM: Chest one view COMPARISON: September 09, 2020 CLINICAL HISTORY: Preoperative clearance FINDINGS: A calcified granulomas is again noted in the right lung base. There is no evidence of pulmonary consolidation, pleural effusion, or pneumothorax. The cardiac size is within normal limits. The regional osseous structures are unremarkable. IMPRESSION: 1. No radiographic evidence of acute cardiorespiratory disease. Signed: Mook Land MDReport Verified Date/Time: 02/02/2021 21:30:13 [facility], [id number] 19:04:00 Test Item Value Reference Range Interpretation Comments ABO/RH AUTOMATED (BEAKER) (test O NEGATIVE code = 2260) Ab Scrn (test code = 890-4) NEGATIVE [facility]2021-02-02 17:41:00 Test Item Value Reference Range Interpretation Comments WBC (test code = 6690-2) 4.3 See_Comment [A utomated message] The system [employer] generated this result transmitted ref erence range: 3.5 - 10 .5 K/L. The refe rence range was not u sed to interpret this result as normal/abnor mal. RBC (test code = 789-8) 3.99 See_Comment [Au tomated message] The system [employer] generated this result transmitted ref erence range: 3.93 - 5 .22 M/L. The refe rence range was not u sed to interpret this result as normal/abnor mal. MCHC (test code = 786-4) 32.2 See_Comment [A utomated message] The system [employer] generated this result transmitted ref erence range: 32.2 - 3 5.5 GM/DL. The refe rence range was not u sed to interpret this result as normal/abnor mal. Hematocrit (test code = 35.7 % 34.1-44.9 4544-3) MCV (test code = 787-2) 89.5 fL 79.4-94.8 MCH (test code = 785-6) 28.8 pg 25.6-32.2 RDW (test code = 788-0) 14.6 % 11.7-14.4 H Platelets (test code = 168 See_Comment [Aut omated message] 777-3) The system [employer] generated this result transmitted ref erence range: 150 - 45 0 K/CU MM. The referen ce range was not u sed to interpret this result as normal/abnor mal. MPV (test code = 10.8 fL 9.4-12.3 49596-1) nRBC (test code = 413) 0 See_Comment [Aut omated message] The system [employer] generated this result transmitted ref erence range: 0 - 0 /1 00 WBC. The refere nce range was not u sed to interpret this result as normal/abnor mal. Lab Interpretation (test Abnormal code = 06341-3) [facility] (HEMOGRAM ONLY)2021-02-02 17:41:00 Test Item Value Reference Range Interpretation Comments WHITE BLOOD CELL COUNT (BEAKER) 4.3 K/ L 3.5-10.5 (test code = 775) RED BLOOD CELL COUNT (BEAKER) 3.99 M/ L 3.93-5.22 (test code = 761) HEMOGLOBIN (BEAKER) (test code = 11.5 GM/DL 11.2-15.7 410) HEMATOCRIT (BEAKER) (test code = 35.7 % 34.1-44.9 411) MEAN CORPUSCULAR VOLUME (BEAKER) 89.5 fL 79.4-94.8 (test code = 753) MEAN CORPUSCULAR HEMOGLOBIN 28.8 pg 25.6-32.2 (BEAKER) (test code = 751) MEAN CORPUSCULAR HEMOGLOBIN CONC 32.2 GM/DL 32.2-35.5 (BEAKER) (test code = 752) RED CELL DISTRIBUTION WIDTH 14.6 % 11.7-14.4 H (BEAKER) (test code = 412) PLATELET COUNT (BEAKER) (test 168 K/CU MM 150-450 code = 756) MEAN PLATELET VOLUME (BEAKER) 10.8 fL 9.4-12.3 (test code = 754) NUCLEATED RED BLOOD CELLS 0 /100 WBC 0-0 (BEAKER) (test code = 413) NV, ANGIOGRAM, [id number] 14:21:00Reason for Exam:->[facility] : 1955 Sex: FFINAL REPORT DATE OF PROCEDURE: 02/02/2021 SURGEON: Ted Johns MD PATTERN CHAIN MAKER SUPERVISOR: Cuco Richardson MD PREOPERATIVE DIAGNOSIS: History of subarachnoid hemorrhage POST OPERATIVE DIAGNOSIS: History of subarachnoid hemorrhage PROCEDURE: Diagnostic cerebral angiogram ANESTHESIA: Monitored anesthesia ESTIMATED BLOOD LOSS: Minimal COMPLICATIONS: None Vessels catheterized:1. Right common carotid artery, cervical2. Right internal carotid artery, cerebral3. 3-D rotational angiography right internal carotid artery4. Left common carotid artery, cervical5. Left common carotid artery, cerebral6. Right vertebral artery Devices Employed:5F slender [id number] Urban 2 catheterTerumoGlide WireTR Band INDICATIONS: The patient is a pleasant 45-year-old female with history of cranial hemorrhage in April 2020. She subsequently underwent right-sided craniotomy outside hospital. His complicated by subdural empyema and evacuation in July 2020. She will be undergoing cranioplasty tomorrow. Given given her unclear history of subarachnoid hemorrhage and intracranial hemorrhage presents today for diagnostic cerebral angiogram prior to her cranioplasty. CONSENT: The risks and benefits of the procedure were discussed with the patient and his/her family. These include but are not limited to infection, bleeding, stroke, , vessel injury, groin hematoma, retroperitoneal hematoma and need for additional treatment and/or therapy. The questions were answered. They understood and wish ed to proceed. PROCEDURE: The proximal radial artery was identified using ultrasound, a still frame was captured and uploaded to PACS for reference. A time-out was performed. Both groins and wrists were prepped in the usual sterile fashion using Chloraprep, and sterilely draped. The skin over the right proximal radial artery was anesthetized with 1% lidocaine. A single wall puncture of the right radial artery was performed using a micropuncture set and dilator and a 5- Fr short sheath was inserted into the right radial artery. A medication cocktail consisting of heparin, nitroglycerin, and verapamilwas then infused through the sheath. Using coaxial technique, a 5F urban catheter was advanced through the right subclavian artery to the relevant vessels, back-bled, and flushed in the usual fashion. Using coaxial technique, and with the aid of the roadmapping, digital fluoroscopy, and careful guidewire manipulation the mentioned above arteries were catheterized. Upon each successive selective catheterization, digital subtraction angiography using the appropriate rate and volume of contrast in multiple projections was performed. 3-dimensional angiogram was performed and processed on an independent workstation. These images were reviewed by Ted Johns MD, separately. The catheter was removed. The sheath was removed and hemostasis was achieved with a TR closure device. The patient tolerated the procedure well and was taken to recovery in stable condition. FINDINGS: RIGHT COMMON FEMORAL ARTERY(DSA - AP, LATERAL - ILIAC) The sheath enters above the femoral bifurcation. The femoral artery and bifurcation are widely patent without evidence of ulceration or stenosis. RIGHT COMMON CAROTID ARTERY(DSA - AP, LATERAL - CERVICAL) The catheter was used to select the right common carotid artery. DSA in the AP and lateral views of the cervical region performed. The distal common, proximal internal, and imaged external carotid arteries are normal in caliber and contour. There is mild atherosclerotic d isease with calcified plaque at the bifurcation without any significant carotid stenosis. RIGHT INTERNAL CAROTID ARTERY (DSA - AP, LATERAL - HEAD) The catheter was advanced into the right internal carotid artery. DSA in the AP, lateral, and oblique views of the intracranial circulation was performed. The intracranial segments of the right internal carotid artery, the middle cerebral artery, and the anterior cerebral artery and the branch vessels are normal in caliber and contour. The anterior and posterior communicating arteries are patent. No evidence of aneurysm, vascular malformation, or arteriovenous shunting. Dynamic imaging demonstrates a normal capillary phase. The intracranial venous struct ures opacify appropriately and appear patent. The skull defect can be seen with mild depression of the scalp and underlying distal vessels. RIGHT COMMON CAROTID ARTERY (DSA - AP, LATERAL - CEREBRAL) The catheter was used to select the right common carotid artery. DSA in the AP and lateral views of the cervical region performed. The distal common, proximal internal, and imaged external carotid arteries are normal in caliber and contour. Frontal branch of superior temporal artery is seen. RIGHT VERTEBRAL ARTERY (DSA - AP, LATERAL - HEAD) The catheter was advanced into the right vertebral artery. DSAin the AP and lateral views of the intracranial circulation was performed. The distal vertebral artery and the basilar artery are normal in caliber and contour. The posterior inferior cerebellar arteryis normal in caliber and contour. Flash filling of the distal left vertebral artery demonstrates patency of the left distal V4 segment and the left posterior inferior cerebellar artery. The anterior inferior and superior cerebellar arteries are normal in caliber and contour. The posterior cerebral arteries and the branch vessels are normal in caliber and contour. No evidence of aneurysm, vascular malformation, or arteriovenous shunting. Dynamic imaging guidance with normal capillary phase. The intracranial venous structures opacify appropriately and appear patent. LEFT COMMON CAROTID ARTERY (DSA - AP, LATERAL - CERVICAL) The catheter was used to select the left common carotid artery. DSA in the APand lateral views of the cervical region was performed. The distal common, proximal internal, and imaged external carotid arteries are normal in caliber and contour. There is moderate sclerotic diseaseat the carotid bifurcation, that is not contribute to any internal carotid stenosis but the externalcarotid is stenotic at the bifurcation. LEFT COMMON CAROTID ARTERY (DSA - AP, LATERAL - HEAD) The catheter was advanced into the left common carotid artery. DSA in the AP, lateral, and oblique views ofthe intracranial circulation was performed. The intracranial segments of the left internal carotid artery, the middle cerebral artery, and the anterior cerebral artery and the branch vessels are normalin caliber and contour. The anterior and posterior communicating arteries are patent. No evidence ofaneurysm, vascular malformation, or arteriovenous shunting. Dynamic imaging demonstrates a normal capillary phase. The intracranial venous structures opacify appropriately and appear patent. The visualized branches of the left external carotid artery appear normal in contour and caliber. No evidence of aneurysm, vascular malformation or arteriovenous shunting. RIGHT VERTEBRAL ARTERY (DSA - AP, LATERAL - HEAD) The catheter was advanced into the right vertebral artery. DSA in the AP and lateral viewsof the intracranial circulation was performed. The distal vertebral artery and the basilar artery are normal in caliber and contour. The posterior inferior cerebellar artery is normal in caliber and contour. Flash filling of the distal left vertebral artery demonstrates patency of the left distal V4 segment. The right posterior inferior cerebellar artery is poorly visualized. The anterior inferior and superior cerebellar arteries are normal in caliber and contour. The posterior cerebral arteries andthe branch vessels are normal in caliber and contour. No evidence of aneurysm, vascular malformation, or arteriovenous shunting. Dynamic imaging guidance with normal capillary phase. The intracranial venous structures opacify appropriately and appear patent. SUPERVISION AND INTERPRETATION: Dr. Thorne present for the entirety of the procedure Angiographic study demonstrates: 1. This is a normal cerebral angiogram: There is no evidence of aneurysm, or malformation, or early arterial venous shunting. No immediate technical or clinical complications. Signed: Cuco Richardson MDReport Verified Date/Time: 02/02/2021 14:21:06 [facility] NV cerebral 4 vessel [id number] 14:21:00Interface, External Ris In - 02/02/2021 2:23 PM CDTFINAL REPORT DATE OF PROC EDURE: 02/02/2021 SURGEON: Ted Johns MD PATTERN CHAIN MAKER SUPERVISOR: Cuco Richardson MD PREOPERATIVE DIAGNOSIS: History of subarachnoid hemorrhage POST OPERATIVE DIAGNOSIS: History of subarachnoid hemorrhage PROCEDURE: Diagnostic cerebral angiogram ANESTHESIA: Monitored anesthesia ESTIMATED BLOOD LOSS: Minimal COM PLICATIONS: None Vessels catheterized:1. Right common carotid artery, cervical2. Right internal carotid artery, cerebral3. 3-D rotational angiography right internal carotid artery4. Left common carotidartery, cervical5. Left common carotid artery, cerebral6. Right vertebral artery Devices Employed:5Fslender emxfdd3H Urban 2 catheterTerumo Wilson WireTR Band INDICATIONS: The patient is a pleasant 45-year-old female with history of cranial hemorrhage in April 2020. She subsequently underwent right-sided craniotomy outside hospital. His complicated by subdural empyema and evacuation in July 2020. She will be undergoing cranioplasty tomorrow. Given given her unclear history of subarachnoid hemorrhage and intracranial hemorrhage presents today for diagnostic cerebral angiogram prior to her cranioplasty. CONSENT: The risks and benefits of the procedure were discussed with the patient and his/her family. These include but are not limited to infection, bleeding, stroke, , vessel injury, groin hematoma, retroperitoneal hematoma and need for additional treatment and/or therapy. The questions were answered. They understood and wished to proceed. PROCEDURE: The proximal radial artery was identified using ultrasound, a still frame was captured and uploaded to PACS for reference. A time-outwas performed. Both groins and wrists were prepped in the usual sterile fashion using Chloraprep, and sterilely draped. The skin over the right proximal radial artery was anesthetized with 1% lidocaine. A single wall puncture of the right radial artery was performed using a micropuncture set and dilator and a 5- Fr short sheath was inserted into the right radial artery. A medication cocktail consisting of heparin, nitroglycerin, and verapamil was then infused through the sheath. Using coaxial technique, a 5F urban catheter was advanced through the right subclavian artery to the relevant vessels, back-bled, and flushed in the usual fashion. Using coaxial technique, and with the aid of the roadmapping, digital fluoroscopy, and careful guidewire manipulation the mentioned above arteries were catheterized. Upon each successive selective catheterization, digital subtraction angiography using the appropriate rate and volume of contrast in multiple projections was performed. 3-dimensional angiogram was performed and processed on an independent workstation. These images were reviewed by Ted Johns MD, separately. The catheter was removed. The sheath was removed and hemostasis was achieved with a TR closure device. The patient tolerated the procedure well and was taken to recovery in stable condition. FINDINGS: RIGHT COMMON FEMORAL ARTERY (DSA - AP, LATERAL - ILIAC) The sheath enters above the femoral bifurcation. The femoral artery and bifurcation are widely patent without evidence of ulceration or stenosis. RIGHT COMMON CAROTID ARTERY (DSA - AP, LATERAL - CERVICAL) The catheter was used to select the right common carotid artery. DSA in the AP and lateral views of the cervical region performed. The distal common, proximal internal, and imaged external carotid arteries are normal in caliber and contour. There is mild atherosclerotic disease with calcified plaque at the bifurcation without any significant carotid stenosis. RIGHT INTERNAL CAROTID ARTERY (DSA - AP, LATERAL - HEAD) The catheter was advanced into the right internal carotid artery. DSA in the AP, lateral, and oblique views of the intracranial circulation was performed. The intracranial segments of the right internal carotid artery, the middle cerebral artery, and the anterior cerebral artery and the branch vessels are normal in caliber and contour. The anterior and posterior communicating arteries are patent. No evidence of aneurysm, vascular malformation, or arteriovenous shunting. Dynamic imaging demonstrates a normal capillary phase. The intracranial venous structures opacify appropriately and appear patent. The skull defect can be seen with mild depression of the scalp and underlying distal vessels. RIGHT COMMON CAROTID ARTERY (DSA - AP, LATERAL - CEREBRAL) The catheter was used to select the right common carotid artery. DSA in the AP and lateral views of the cervical region performed. The distal common, proximal internal, and imaged external carotid arteries are normal in caliber and contour. Frontal branch of superior temporal artery is seen. RIGHT VERTEBRAL ARTERY (DSA - AP, LATERAL - HEAD) The catheter was advanced into the right vertebral artery. DSA in the AP and lateral views of the intracranial circulation was performed. The distal vertebral artery and the basilar artery are normal in caliber and contour. The posterior inferior cerebellar artery is normal in caliber and contour. Flash filling of the distal left vertebral artery demonstrates patency of the left distal V4 segment and the left posterior inferior cerebellar artery. The anterior inferior and superior cerebellar arteries are normal in caliber and contour. The posterior cerebral arteries and the branch vessels are normal in caliber and contour. No evidence of aneurysm, vascular malformation, or arteriovenous shunting. Dynamic imaging guidance with normal capillary phase. The intracranial venous structures opacify appropriately and appear patent. LEFT COMMON CAROTID ARTERY (DSA - AP, LATERAL - CERVICAL) The catheter was used to select theleft common carotid artery. DSA in the AP and lateral views of the cervical region was performed. The distal common, proximal internal, and imaged external carotid arteries are normal in caliber and contour. There is moderate sclerotic disease at the carotid bifurcation, that is not contribute to any internal carotid stenosis but the external carotid is stenotic at the bifurcation. LEFT COMMON CAROTID ARTERY (DSA - AP, LATERAL - HEAD) The catheter was advanced into the left common carotid artery. DSA in the AP, lateral, and oblique views of the intracranial circulation was performed. The intracranial segments of the left internal carotid artery, the middle cerebral artery, and the anterior cerebral artery and the branch vessels are normal in caliber and contour. The anterior and posterior communicating arteries are patent. No evidence of aneurysm, vascular malformation, or arteriovenous shunting. Dynamic imaging demonstrates a normal capillary phase. The intracranial venous structures opacify appropriately and appear patent. The visualized branches of the left external carotid artery appear normal in contour and caliber. No evidence of aneurysm, vascular malformation or arteriovenous shunting. RIGHT VERTEBRAL ARTERY (DSA - AP, LATERAL - HEAD) The catheter was advanced into the right vertebral artery. DSA in the AP and lateral views of the intracranial circulation was performed. The distal vertebral artery and the basilar artery are normal in caliber and contour. The posterior inferior cerebellar artery is normal in caliber and contour. Flash filling of the distal left vertebral artery demonstrates patency of the left distal V4 segment. The right posterior inferior cerebellar artery is poorly visualized. The anterior inferior and superior cerebellar arteries are normal in caliber and contour. The posterior cerebral arteries and the branch vessels are normal in caliber and contour. No evidence of aneurysm, vascular malformation, or arteriovenous shunting. Dynamic imaging guidance with normal capillary phase. The intracranial venous structures opacify appropriately and appear patent. SUPERVISION AND INTERPRETATION: Dr. Johns was present for the entirety of the procedure Angiographicstudy demonstrates: 1. This is a normal cerebral angiogram: There is no evidence of aneurysm, or malformation, or early arterial venous shunting. No immediate technical or clinical complications. Signed: Cuco Richardson MDRepsaint mary[facility] Verified Date/Time: 02/02/2021 14:21:06 Reading Location: [facility] Y026 NeuroAngio Reading Room [facility]-Calcium [id number] 11:13:00 Test Item Value Reference Range Interpretation Comments POC-Calcium Ionized 1.30 mmol/L 1.12-1.27 H : TESTED AT [facility] (test code = 1536) [address] [facility] [place], [address]: Presetter Operator/Techni eliane n ID = [id number] f or Benedicto Keyes Lab Interpretation (test Abnormal code = 11810-1) [facility]-[id number] 11:13:00 Test Item Value Reference Range Interpretation Comments POC-Potassium (test code 4.2 meq/L 3.6-5.5 : T ESTED AT [facility] = 1540) [address] [place] [address], [address]: Presetter Operator/Techni rosa ID = [id number] for Vinueza, Madela ine Lab Interpretation (test Normal code = 58600-0) [facility]-Ivlvqy4911-70-93 11:13:00 Test Item Value Reference Range Interpretation Comments POC-Sodium (test code = 142 meq/L 135-148 : TE STED AT [facility] 1542) [address] [place] [address], [address]: Presetter Operator/Techni rosa ID = [id number] for Vinueza, Madela ine Lab Interpretation (test Normal code = 03747-0) [facility] [id number] 11:13:00 Test Item Value Reference Range Interpretation Comments POC-Glucose (test code = 83 mg/dL 70-110 : T ESTED AT [facility] 1855) [address] [place] [address], [address]: Presetter Operator/Techni rosa ID = [id number] for Vinueza, Madela ine Lab Interpretation (test Normal code = 33460-5) [facility] [id number] 11:13:00 Test Item Value Reference Range Interpretation Comments POC-Hemoglobin (test code 12.2 g/dL 12-15 : TESTED AT [facility] = 1856) [address] [place] [address], [address]: Presetter Operator/Techni rosa ID = [id number] for Vinueza, Madela ine Lab Interpretation (test Normal code = 49321-3) [facility] [id number] 11:13:00 Test Item Value Reference Range Interpretation Comments POC-Hematocrit (test code 36 % 36-45 : Presetter Operator/Retail Office Manager = 1857) ID = [id number] for Vinueza, Madela ine Lab Interpretation (test Normal code = 39375-0) [facility]-Ailcqtjqtl5757-08-95 11:13:00 Test Item Value Reference Range Interpretation Comments POC-Creatinine (test 0.8 mg/dL 0.6-1.3 : TESTE D AT [place] [address] code = 1859) [facility] [place], [address]: Presetter Operator/Techni rosa ID = [id number] for Cuba eza, Elise POC-EGFR (test code 72 mL/min/1.73M2 = 1860) [facility]-[id number] 11:13:00 Test Item Value Reference Range Interpretation Comments POC-BUN (test code = 25 mg/dL 7-21 H : TESTE D AT [facility] 2842) [address] [place] [address] [place], [address]: Presetter Operator/Techni rosa ID = [id number] for Vinueza, Madela ine Lab Interpretation (test Abnormal code = 13065-6) [facility]-Ixwrrivp0438-11-48 11:13:00 Test Item Value Reference Range Interpretation Comments POC-Chloride (test code = 105 meq/L 98-107 : TESTED AT [facility] 2843) [address] [facility], [address]: Presetter Operator/Techni rosa ID = [id number] for Vinueza, Madela ine Lab Interpretation (test Normal code = 20832-1) [facility]-[id number] 11:13:00 Test Item Value Reference Range Interpretation Comments POC-SODIUM (BEAKER) 142 meq/L 135-148 : TESTED AT [place] [address] (test code = 1542) [place], [address]: Presetter Operator/Techni rosa ID = [id number] for Cuba eza, Elise KNHR-[id number] 11:13:00 Test Item Value Reference Range Interpretation Comments POC-POTASSIUM 4.2 meq/L 3.6-5.5 : TESTED AT [place] [address] (BEAKER) (test code [facility], = 1540) [address]: Presetter Operator/Techni rosa ID = [id number] for Cuba eza, Elise [id number]-[id number] 11:13:00 Test Item Value Reference Range Interpretation Comments POC-CREATININE 0.8 mg/dL 0.6-1.3 : TESTED AT [facility] (BEAKER) (test [address] [place] [address] code = 1859) [place], [address]: Presetter Operator/Techni rosa ID = [id number] for Benedicto Keyes ine POC-EGFR 72 mL/min/1.73M2 ([facility]) (test code = 1860) [id number] 11:13:00 Test Item Value Reference Range Interpretation Comments POC-HEMOGLOBIN 12.2 g/dL 12.0-15.0 : TESTED AT [place] [address] ([facility]) (test code [facility], = 1856) [address]: Presetter Operator/Techni rosa ID = [id number] for Cuba eza, Elise LPNH-[id number] 11:13:00 Test Item Value Reference Range Interpretation Comments POC-HEMATOCRIT 36 % 36-45 : Presetter Operator/Te chnician ID = ([facility]) (test code = 505427 for Stephy, 1857) Elise [id number]-[id number] 11:13:00 Test Item Value Reference Range Interpretation Comments POC-CHLORIDE 105 meq/L 98-107 : TESTED AT [place] [address] ([facility]) (test code [facility], = 2843) [address]: Presetter Operator/Techni rosa ID = [id number] for Cuba eza, Elise POCT-CALCIUM [id number] 11:13:00 Test Item Value Reference Range Interpretation Comments POC-CALCIUM IONIZED 1.30 mmol/L 1.12-1.27 H : TESTED AT [place] [address] ([facility]) (test code [facility], = 1536) [address]: Presetter Operator/Techni rosa ID = [id number] for Vi jaya, Elise [id number] 11:13:00 Test Item Value Reference Range Interpretation Comments POC-BUN ([facility]) 25 mg/dL 7-21 H : TESTED AT [place] [address] (test code = 2842) [facility], [address]: Presetter Operator/Techni rosa ID = [id number] for Cuba eza, Elise [id number]-[id number] 11:13:00 Test Item Value Reference Range Interpretation Comments POC-GLUCOSE ([facility]) 83 mg/dL 70-110 : TESTE D AT [place] [address] (test code = 1855) [facility], [address]: Presetter Operator/Techni rosa ID = [id number] for Elise Hooks PT/[id number] 11:06:00 Test Item Value Reference Interpretation Comments Range Protime (test code = 13.7 See_Comment [Autom ated 5902-2) message] The system which generated this result transmitted reference range : 11.9 - 14.2 seconds. The reference range was not used to interpret this result as normal/abnormal . INR (test code = 1.06 See_Comment [Automated 6301-6) message] The system which generated this result transmitted reference range : <=5.90. The reference range was not used to interpret this result as normal/abnormal . PTT (test code = 30.8 See_Comment [Automated 15086-5) message] The system which generated this result transmitted reference range : 22.5 - 36.0 seconds. The reference range was not used to interpret this result as normal/abnormal . MILLIE (test code = RECOMMENDED MILLIE) COUMADIN/WARFARIN INR THERAPY RANGESSTANDARD DOSE: 2.0 - 3.0 Includes: PROPHYLAXIS for venous thrombosis, systemic embolization; TREATMENT for venous thrombosis and/or pulmonary embolus.HIGH RISK: Target INR is 2.5-3.5 for patients with mechanical heart valves. Lab Interpretation Normal (test code = 12715-0) [id number] 11:06:00 Test Item Value Reference Range Interpretation Comments PROTIME (BEAKER) (test 13.7 seconds 11.9-14.2 code = 759) INR (BEAKER) (test 1.06 See_Comment [Automat ed code = 370) message] The sy stem which generated this result transmitted reference range : <=5.90. The reference range was not used to interpret this result as normal/abnormal . PARTIAL THROMBOPLASTIN 30.8 seconds 22.5-36.0 TIME (BEAKER) (test code = 760) RECOMMENDED COUMADIN/WARFARIN INR THERAPY RANGESSTANDARD DOSE: 2.0 - 3.0 Includes: PROPHYLAXIS forvenous thrombosis, systemic embolization; TREATMENT for venous thrombosis and/or pulmonary embolus.HIGH RISK: Target INR is 2.5-3.5 for patients with mechanical heart valves.CBC with platelet count + automated diff 2021-02-02 10:50:00 Test Item Value Reference Range Interpretation Comments WBC (test code = 6690-2) 4.5 See_Comment [A utomated message] The system [employer] generated this result transmitted ref erence range: 3.5 - 10 .5 K/L. The refe rence range was not u sed to interpret this result as normal/abnor mal. RBC (test code = 789-8) 4.19 See_Comment [Au tomated message] The system [employer] generated this result transmitted ref erence range: 3.93 - 5 .22 M/L. The refe rence range was not u sed to interpret this result as normal/abnor mal. MCHC (test code = 786-4) 32.9 See_Comment [A utomated message] The system [employer] generated this result transmitted ref erence range: 32.2 - 3 5.5 GM/DL. The refe rence range was not u sed to interpret this result as normal/abnor mal. Hematocrit (test code = 36.8 % 34.1-44.9 4544-3) MCV (test code = 787-2) 87.8 fL 79.4-94.8 MCH (test code = 785-6) 28.9 pg 25.6-32.2 RDW (test code = 788-0) 14.9 % 11.7-14.4 H Platelets (test code = 182 See_Comment [Aut omated message] 777-3) The system [employer] generated this result transmitted ref erence range: 150 - 45 0 K/CU MM. The referen ce range was not u sed to interpret this result as normal/abnor mal. MPV (test code = 10.6 fL 9.4-12.3 27270-0) nRBC (test code = 413) 0 See_Comment [Aut omated message] The system [employer] generated this result transmitted ref erence range: 0 - 0 /1 00 WBC. The refere nce range was not u sed to interpret this result as normal/abnor mal. % Neutros (test code = 52 % 429) % Lymphs (test code = 36 % 430) % Monos (test code = 7 % 431) % Eos (test code = 432) 4 % % Baso (test code = 437) 2 % # Neutros (test code = 2.33 See_Comment [Aut omated message] 670) The system [employer] generated this result transmitted ref erence range: 1.56 - 6 .13 K/L. The refe rence range was not u sed to interpret this result as normal/abnor mal. # Lymphs (test code = 1.63 See_Comment [Auto mated message] 414) The system [employer] generated this result transmitted ref erence range: 1.18 - 3 .74 K/L. The refe rence range was not u sed to interpret this result as normal/abnor mal. # Monos (test code = 0.29 See_Comment [Autom ated message] 415) The system [employer] generated this result transmitted ref erence range: 0.24 - 0 .36 K/L. The refe rence range was not u sed to interpret this result as normal/abnor mal. # Eos (test code = 416) 0.16 See_Comment [Au tomated message] The system [employer] generated this result transmitted ref erence range: 0.04 - 0 .36 K/L. The refe rence range was not u sed to interpret this result as normal/abnor mal. # Baso (test code = 417) 0.07 See_Comment [A utomated message] The system [employer] generated this result transmitted ref erence range: 0.01 - 0 .08 K/L. The refe rence range was not u sed to interpret this result as normal/abnor mal. Immature 0 % 0-1 Granulocytes-Relative (test code = 2801) Lab Interpretation (test Abnormal code = 51003-2) [facility] W/PLT COUNT & AUTO [id number] 10:50:00 Test Item Value Reference Range Interpretation Comments WHITE BLOOD CELL COUNT (BEAKER) 4.5 K/ L 3.5-10.5 (test code = 775) RED BLOOD CELL COUNT (BEAKER) 4.19 M/ L 3.93-5.22 (test code = 761) HEMOGLOBIN (BEAKER) (test code = 12.1 GM/DL 11.2-15.7 410) HEMATOCRIT (BEAKER) (test code = 36.8 % 34.1-44.9 411) MEAN CORPUSCULAR VOLUME (BEAKER) 87.8 fL 79.4-94.8 (test code = 753) MEAN CORPUSCULAR HEMOGLOBIN 28.9 pg 25.6-32.2 (BEAKER) (test code = 751) MEAN CORPUSCULAR HEMOGLOBIN CONC 32.9 GM/DL 32.2-35.5 (BEAKER) (test code = 752) RED CELL DISTRIBUTION WIDTH 14.9 % 11.7-14.4 H (BEAKER) (test code = 412) PLATELET COUNT (BEAKER) (test 182 K/CU MM 150-450 code = 756) MEAN PLATELET VOLUME (BEAKER) 10.6 fL 9.4-12.3 (test code = 754) NUCLEATED RED BLOOD CELLS 0 /100 WBC 0-0 (BEAKER) (test code = 413) NEUTROPHILS RELATIVE PERCENT 52 % (BEAKER) (test code = 429) LYMPHOCYTES RELATIVE PERCENT 36 % (BEAKER) (test code = 430) MONOCYTES RELATIVE PERCENT 7 % (BEAKER) (test code = 431) EOSINOPHILS RELATIVE PERCENT 4 % (BEAKER) (test code = 432) BASOPHILS RELATIVE PERCENT 2 % (BEAKER) (test code = 437) NEUTROPHILS ABSOLUTE COUNT 2.33 K/ L 1.56-6.13 (BEAKER) (test code = 670) LYMPHOCYTES ABSOLUTE COUNT 1.63 K/ L 1.18-3.74 (BEAKER) (test code = 414) MONOCYTES ABSOLUTE COUNT (BEAKER) 0.29 K/ L 0.24-0.36 (test code = 415) EOSINOPHILS ABSOLUTE COUNT 0.16 K/ L 0.04-0.36 (BEAKER) (test code = 416) BASOPHILS ABSOLUTE COUNT (BEAKER) 0.07 K/ L 0.01-0.08 (test code = 417) IMMATURE GRANULOCYTES-RELATIVE 0 % 0-1 PERCENT (BEAKER) (test code = 2801) SARS-CoV2/RT-PCR (Asymptomatic ONLY)2021-01-31 21:49:00 Test Item Value Reference Range Interpretation Comments SARS-COV2/RT-PCR Negative Not Detected, (test code = Negative, See 02959-1) external report for linked test SARS-COV-2 [facility] MARCIA PERFORMING LAB (test code = 21965-1) MILLIE (test code = Negative result for this MILLIE) test determines that SARS-CoV-2 RNA was not present in the specimen above the Limit of Detection (LOD). However, Negative results do not preclude SARS-CoV-2 infection and should not be used as the sole basis for treatment or patient management decisions. Negative results must be combined with clinical observations, patient history, and epidemiological information. A false negative result may occur if a specimen is improperly collected, transported or handled. A false negative result should be considered if patient's recent exposures or clinical presentation indicate that COVID-19 (SARS-CoV-2) is likely and diagnostic tests for other causes of illness are negative. Re-testing should be considered in cases of suspected false negatives. The limit of detection for this assay is 800 copies/mL. This SARS CoV-2 test is a real-time RT-PCR test intended for the qualitative detection of nucleic acid from SARS-CoV-2 in a nasopharyngeal swab specimen collected from individuals suspected of COVID-19 by their healthcare provider. This test has not been Food and Drug Administration (FDA) cleared or approved. This is a modified version of an approved Emergency Use Authorization (EUA) and is in the process of review by the FDA. Once authorized by the FDA, the issued EUA will be effective until the declaration that circumstances exist justifying the authorization of the emergency use of in vitro diagnostic tests for detection and/or diagnosis of COVID-19 is terminated under Section 564(b)(2) of the Act or the EUA is revoked under Section 564(g) of the Act. Fact Sheet for Healthcare Providers:https://www.[employer]/sites/default/f sima/product/documents/F act_Sheet_HC_Providers_L ctf_JGCV-EoC-9.pdf Fact Sheet for Healthcare Patients:https://www.[employer]/sites/default/fi les/product/documents/Fa ct_Sheet_Patients_Lyra_S ARS-CoV-2.pdf Performing Laboratory:[facility] [place] [address] [facility])2021-01-31 21:49:00 Test Item Value Reference Range Interpretation Comments SARS-COV2/RT-PCR (test Negative Not Detected, Negative, code = 9700785) See external report for linked test SARS-COV-2 PERFORMING LAB [facility] MARCIA (test code = 2235593) Negative result for this test determines that SARS-CoV-2 RNA was not present in the specimen above the Limit of Detection (LOD). However, Negative results do not preclude SARS-CoV-2 infection and should not be used as the sole basis for treatment or patient management decisions. Negative results mustbe combined with clinical observations, patient history, and epidemiological information. A false negative result may occur if a specimen is improperly collected, transported or handled. A false negative result should be considered if patient's recent exposures or clinical presentation indicate that COVID-19 (SARS-CoV-2) is likely and diagnostic tests for other causes of illness are negative. Re-testing should be considered in cases of suspected false negatives.The limit of detection for this assay is 800 copies/mL.This SARS CoV-2 test is a real-time RT-PCR test intended for the qualitative detection of nucleic acid from SARS-CoV-2 in a nasopharyngeal swab specimen collected from individuals susp ected of COVID-19 by their healthcare provider.This test has not been Food and Drug Administration (FDA) cleared or approved. This is a modified version of an approved Emergency Use Authorization (EUA) and is in the process of review by the FDA. Once authorized by the FDA, the issued EUA will be effective until the declaration that circumstances exist justifying the authorization of the emergency use of in vitro diagnostic tests for detection and/or diagnosis of COVID-19 is terminated under Section 564(b)(2) of the Act or the EUA is revoked under Section 564(g) of the Act.Fact Sheet for Healthcare Providers:https://www.[employer].com/sites/default/files/product/documents/Fact_Shee u_VZ_Lrlngodab_Xwwb_RZLM-EsJ-4.pdfFact Sheet for Healthcare Patients:https://www.[employer].com/sites/default/files/product/ documents/Hktu_Puvyr_Twwizmer_Zcap_ATBE-HtR-4.pdfPerforming Laboratory:[facility] KumarPres[facility], [place] [address]PPT culture + smear (non-sputum)2020-09-28 07:56:00 Test Item Value Reference Range Interpretation Comments Result (test code = No acid-fast bacilli 6463-4) isolated in 42 days AFB Smear (test code = No acid fast bacilli 35402-6) [facility]SPUT[facility]2020-09-28 07:56:00 Test Item Value Reference Range Interpretation Comments CULTURE (BEAKER) (test No acid-fast bacilli code = 1095) isolated in 42 days AFB SMEAR (BEAKER) No acid fast bacilli (test code = 994) seen AFB CULTURE + SMEAR (NON-SPUTUM)2020-09-28 07:56:00 Test Item Value Reference Range Interpretation Comments CULTURE (BEAKER) (test No acid-fast bacilli code = 1095) isolated in 42 days AFB SMEAR (BEAKER) No acid fast bacilli (test code = 994) seen AFB CULTURE + SMEAR (NON-SPUTUM)2020-09-28 07:56:00 Test Item Value Reference Range Interpretation Comments CULTURE (BEAKER) (test No acid-fast bacilli code = 1095) isolated in 42 days AFB SMEAR (BEAKER) No acid fast bacilli (test code = 994) seen [id number] 06:06:00 Test Item Value Reference Range Interpretation Comments Creatinine (test 0.78 mg/dL 0.57-1.25 code = 2160-0) EGFR (test code = 75 mL/min/1.[place] [address]-0) NOT ACCURATE CREATININE CLEARANCE IN PREDICTING GLOMERULAR FILTRATION RATE . ESTIMATED GFR I S NOT APPLICABLE FOR DIALYSIS PATIEN TS. MILLIE (test code = Presetter Operator ID - MILLIE) EDASI [facility] 06:06:00 Test Item Value Reference Range Interpretation Comments CREATININE (BEAKER) 0.78 mg/dL 0.57-1.25 (test code = 358) EGFR (BEAKER) (test 75 mL/min/1.73 ESTIMA SANDRA GFR IS code = 1092) sq m NOT ACCURATE CREATININE CLEARANCE IN PREDICTING GLOMERULAR FILTRATION RATE . ESTIMATED GFR I S NOT APPLICABLE FOR DIALYSIS PATIEN TS. Presetter Operator ID - [id number] 07:34:00 Test Item Value Reference Range Interpretation Comments CREATININE (BEAKER) 0.77 mg/dL 0.57-1.25 (test code = 358) EGFR (BEAKER) (test 76 mL/min/1.73 ESTIMA SANDRA GFR IS code = 1092) sq m NOT ACCURATE CREATININE CLEARANCE IN PREDICTING GLOMERULAR FILTRATION RATE . ESTIMATED GFR I S NOT APPLICABLE FOR DIALYSIS PATIEN TS. Presetter Operator ID Dave [id number] 07:53:00 Test Item Value Reference Range Interpretation Comments CREATININE (BEAKER) 0.82 mg/dL 0.57-1.25 (test code = 358) EGFR (BEAKER) (test 70 mL/min/1.73 ESTIMA SANDRA GFR IS code = 1092) sq m NOT ACCURATE CREATININE CLEARANCE IN PREDICTING GLOMERULAR FILTRATION RATE . ESTIMATED GFR I S NOT APPLICABLE FOR DIALYSIS PATIEN TS. Presetter Operator ID Dave BREEN [id number] 06:14:00 Test Item Value Reference Range Interpretation Comments CREATININE (BEAKER) 0.81 mg/dL 0.57-1.25 (test code = 358) EGFR (BEAKER) (test 71 mL/min/1.73 ESTIMA SNADRA GFR IS code = 1092) sq m NOT ACCURATE CREATININE CLEARANCE IN PREDICTING GLOMERULAR FILTRATION RATE . ESTIMATED GFR I S NOT APPLICABLE FOR DIALYSIS PATIEN TS. Presetter Operator ID Dave SINCLAIR LVancomycin level, [id number] 06:00:00 Test Item Value Reference Range Interpretation Comments Vancomycin Tr (test code = 21.5 ug/mL 10-20 H 4092-3) MILLIE (test code = MILLIE) Presetter Operator ID Dave RHODES M Lab Interpretation (test Abnormal code = 70535-0) [facility]VAN[facility]IN LEVEL, [id number] 06:00:00 Test Item Value Reference Range Interpretation Comments VANCOMYCIN TROUGH (BEAKER) (test 21.5 ug/mL 10.0-20.0 H code = 522) Presetter Operator ID - MEAGAN [id number] 07:20:00 Test Item Value Reference Range Interpretation Comments CREATININE (BEAKER) 0.75 mg/dL 0.57-1.25 (test code = 358) EGFR (BEAKER) (test 78 mL/min/1.73 ESTIMA SANDRA GFR IS code = 1092) sq m NOT ACCURATE CREATININE CLEARANCE IN PREDICTING GLOMERULAR FILTRATION RATE . ESTIMATED GFR I S NOT APPLICABLE FOR DIALYSIS PATIEN TS. Presetter Operator ID Dave SINCLAIR [id number] 05:26:00 Test Item Value Reference Range Interpretation Comments CREATININE (MARQUITA) 0.72 mg/dL 0.57-1.25 (test code = 358) EGFR (MARQUITA) (test 82 mL/min/1.73 ESTIMA SANDRA GFR IS code = 1092) sq m NOT ACCURATE CREATININE CLEARANCE IN PREDICTING GLOMERULAR FILTRATION RATE . ESTIMATED GFR I S NOT APPLICABLE FOR DIALYSIS PATIEN TS. Presetter Operator ID - PIAYA LSARS-COV2/RT-PCR ([facility])2020-09-18 10:28:00 Test Item Value Reference Range Interpretation Comments SARS-COV2/RT-PCR (test Negative Not Detected, Negative, code = 9251214) See external report for linked test SARS-COV-2 PERFORMING LAB [facility] (test code = 9238957) Negative result for this test determines that SARS-CoV-2 RNA was not present in the specimen above the Limit of Detection (LOD). However, Negative results do not preclude SARS-CoV-2 infection and should not be used as the sole basis for treatment or patient management decisions. Negative results mustbe combined with clinical observations, patient history, and epidemiological information. A false negative result may occur if a specimen is improperly collected, transported or handled. A false negative result should be considered if patient's recent exposures or clinical presentation indicate that COVID-19 (SARS-CoV-2) is likely and diagnostic tests for other causes of illness are negative. Re-testing should be considered in cases of suspected false negatives.The limit of detection for this assay is 800 copies/mL.This SARS CoV-2 test is a real-time RT-PCR test intended for the qualitative detection of nucleic acid from SARS-CoV-2 in a nasopharyngeal swab specimen collected from individuals susp ected of COVID-19 by their healthcare provider.This test has not been Food and Drug Administration (FDA) cleared or approved. This is a modified version of an approved Emergency Use Authorization (EUA) and is in the process of review by the FDA. Once authorized by the FDA, the issued EUA will be effective until the declaration that circumstances exist justifying the authorization of the emergency use of in vitro diagnostic tests for detection and/or diagnosis of COVID-19 is terminated under Section 564(b)(2) of the Act or the EUA is revoked under Section 564(g) of the Act.Fact Sheet for Healthcare Providers:https://www.[employer]/sites/default/files/product/documents/Fact_Shejessica torresy_KM_Ahqabzdau_Wmcc_JKAD-XdX-8.pdfFact Sheet for Healthcare Patients:https://www.[employer]/sites/default/files/product/ documents/Geam_Bwzgg_Qlnmbrhx_Oikh_JKDA-FzS-3.pdfPerforming Laboratory:[facility] [facility] [address].[place], [place] [address]Hmnta Culture - Routine (Left Venipuncture)2020-09-17 10:00:00 Test Item Value Reference Range Interpretation Comments Result (test code = No growth in 5 days 6463-4) [facility] [id number] 10:00:00 Test Item Value Reference Range Interpretation Comments CULTURE (BEAKER) (test No growth in 5 days code = 1095) [id number] 05:49:00 Test Item Value Reference Range Interpretation Comments Magnesium (test code = 1.6 mg/dL 1.6-2.6 17474-5) MILLIE (test code = MILLIE) Presetter Operator ID - EDASI Lab Interpretation (test Normal code = 38520-7) [facility]OLIC [id number] 05:49:00 Test Item Value Reference Range Interpretation Comments SODIUM (BEAKER) 141 meq/L 136-145 (test code = 381) POTASSIUM (BEAKER) 3.5 meq/L 3.5-5.1 (test code = 379) CHLORIDE (BEAKER) 108 meq/L 98-107 H (test code = 382) CO2 (BEAKER) (test 25 meq/L 22-29 code = 355) BLOOD UREA NITROGEN 7 mg/dL 7-21 (BEAKER) (test code = 354) CREATININE (BEAKER) 0.81 mg/dL 0.57-1.25 (test code = 358) GLUCOSE RANDOM 90 mg/dL 70-105 (BEAKER) (test code = 652) CALCIUM (BEAKER) 8.6 mg/dL 8.4-10.2 (test code = 697) EGFR (BEAKER) (test 71 mL/min/1.73 ESTIMA SANDRA GFR IS code = 1092) sq m NOT ACCURATE CREATININE CLEARANCE IN PREDICTING GLOMERULAR FILTRATION RATE . ESTIMATED GFR I S NOT APPLICABLE FOR DIALYSIS PATIEN TS. Presetter Operator ID - BSOAQDOWVRCMQI6528-55-09 05:49:00 Test Item Value Reference Range Interpretation Comments MAGNESIUM (BEAKER) (test code = 1.6 mg/dL 1.6-2.6 627) Presetter Operator ID - KADYVANCOMYCIN LEVEL, [id number] 05:25:00 Test Item Value Reference Range Interpretation Comments VANCOMYCIN TROUGH (BEAKER) (test 15.8 ug/mL 10.0-20.0 code = 522) Presetter Operator ID - DOTTIE LBLOOD [id number] 23:00:00 Test Item Value Reference Range Interpretation Comments CULTURE (BEAKER) (test No growth in 5 days code = 1095) BASIC METABOLIC [id number] 06:09:00 Test Item Value Reference Range Interpretation Comments SODIUM (BEAKER) 142 meq/L 136-145 (test code = 381) POTASSIUM (BEAKER) 2.9 meq/L 3.5-5.1 L (test code = 379) CHLORIDE (BEAKER) 107 meq/L 98-107 (test code = 382) CO2 (BEAKER) (test 25 meq/L 22-29 code = 355) BLOOD UREA NITROGEN 4 mg/dL 7-21 L (BEAKER) (test code = 354) CREATININE (BEAKER) 0.75 mg/dL 0.57-1.25 (test code = 358) GLUCOSE RANDOM 90 mg/dL 70-105 (BEAKER) (test code = 652) CALCIUM (BEAKER) 8.5 mg/dL 8.4-10.2 (test code = 697) EGFR (BEAKER) (test 78 mL/min/1.73 ESTIMA SANDRA GFR IS code = 1092) sq m NOT ACCURATE CREATININE CLEARANCE IN PREDICTING GLOMERULAR FILTRATION RATE . ESTIMATED GFR I S NOT APPLICABLE FOR DIALYSIS PATIEN TS. Presetter Operator ID - MEAGAN [facility] (HEMOGRAM ONLY)2020-09-16 05:40:00 Test Item Value Reference Range Interpretation Comments WHITE BLOOD CELL COUNT (BEAKER) 4.7 K/ L 3.5-10.5 (test code = 775) RED BLOOD CELL COUNT (BEAKER) 3.14 M/ L 3.93-5.22 L (test code = 761) HEMOGLOBIN (BEAKER) (test code = 8.0 GM/DL 11.2-15.7 L 410) HEMATOCRIT (BEAKER) (test code = 25.4 % 34.1-44.9 L 411) MEAN CORPUSCULAR VOLUME (BEAKER) 80.9 fL 79.4-94.8 (test code = 753) MEAN CORPUSCULAR HEMOGLOBIN 25.5 pg 25.6-32.2 L (BEAKER) (test code = 751) MEAN CORPUSCULAR HEMOGLOBIN CONC 31.5 GM/DL 32.2-35.5 L (BEAKER) (test code = 752) RED CELL DISTRIBUTION WIDTH 17.4 % 11.7-14.4 H (BEAKER) (test code = 412) PLATELET COUNT (BEAKER) (test 390 K/CU MM 150-450 code = 756) MEAN PLATELET VOLUME (BEAKER) 10.9 fL 9.4-12.3 (test code = 754) NUCLEATED RED BLOOD CELLS 0 /100 WBC 0-0 (BEAKER) (test code = 413) ANAEROBIC [id number] 18:06:00 Test Item Value Reference Interpretation Comments Range CULTURE (BEAKER) CUTIBACTERIUM A <1+ Cutiba cterium (test code = ACNES acnesSusceptibi lity 1095) performed by:Id entified by [facility] [facility]. Amoxicillin + mcg/mL S Clavulanate (test code = 21) Clindamycin (test mcg/mL S code = 10) Meropenem (test mcg/mL S code = 34) Metronidazole mcg/mL R (test code = 56) Penicillin G mcg/mL S (test code = 3) VANCOMYCIN LEVEL, [id number] 11:51:00 Test Item Value Reference Range Interpretation Comments VANCOMYCIN TROUGH (BEAKER) (test 16.0 ug/mL 10.0-20.0 code = 522) Presetter Operator ID - BSBLOOD [id number] 10:38:00 Test Item Value Reference Range Interpretation Comments CULTURE (BEAKER) A From Anaero bic (test code = Bottle Only 1095) Bacillus specie s, not anthracis GRAM STAIN RESULT From anaerobic (BEAKER) (test bottle only: gram code = 1123) positive rods BLOOD [id number] 07:01:00 Test Item Value Reference Range Interpretation Comments CULTURE (BEAKER) (test No growth in 5 days code = 1095) VANCOMYCIN LEVEL, [id number] 03:41:00 Test Item Value Reference Range Interpretation Comments VANCOMYCIN TROUGH (BEAKER) (test 21.4 ug/mL 10.0-20.0 H code = 522) Presetter Operator ID - BSBASIC METABOLIC [id number] 17:02:00 Test Item Value Reference Range Interpretation Comments SODIUM (BEAKER) 139 meq/L 136-145 (test code = 381) POTASSIUM (BEAKER) 3.6 meq/L 3.5-5.1 Specimen slightly (test code = 379) hemolyzed CHLORIDE (BEAKER) 107 meq/L 98-107 (test code = 382) CO2 (BEAKER) (test 21 meq/L 22-29 L code = 355) BLOOD UREA NITROGEN 7 mg/dL 7-21 (BEAKER) (test code = 354) CREATININE (BEAKER) 0.78 mg/dL 0.57-1.25 Specimen slightly (test code = 358) hemolyzed GLUCOSE RANDOM 96 mg/dL 70-105 (BEAKER) (test code = 652) CALCIUM (BEAKER) 8.7 mg/dL 8.4-10.2 (test code = 697) EGFR (BEAKER) (test 75 mL/min/1.73 ESTIMA SANDRA GFR IS code = 1092) sq m NOT ACCURATE CREATININE CLEARANCE IN PREDICTING GLOMERULAR FILTRATION RATE . ESTIMATED GFR I S NOT APPLICABLE FOR DIALYSIS PATIEN TS. 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 DESCRIPTION OF RECORD: During the maximally alert state, an 8.5-9 Hz posterior dominant rhythm was seen better modulated and regulated over the left hemisphere. Over the right hemisphere, the background activity was frequently intermixed with polymorphic 2-3 Hz activity and 4-6 Hz theta activity, maximal over the centro-temporal head region. Low voltage beta activity predominated anteriorly in bilateral frontal regions. During drowsiness, there is an attenuation of a posterior dominant rhythm and an increase in fronto-central theta. Stage 2 sleep was not recorded. Breach rhythm was seen over the C4 electrode site. No epileptiform discharges were seen. EVENTS: No clinical or electrographic seizures HV: Hyperventilation was not performed. PHOTIC STIMULATION: Photic stimulation was performed 1-30 Hz. Photic stimulation didn't elicit abnormal discharges. IMPRESSION: Abnormal Awake and Drowsy EEG - Lateralized polymorphic delta slowing, right hemisphere, maximal centro-temporal, continuous and nonreactive CLINICAL CORRELATION: This record is indicative a lesion in the right hemisphere, maximal over the right centrotemporal head region. No epileptiform discharges were seen. No clinical or electrographic seizures were recorded. An EEG without epileptiform discharges does not exclude the possibility of epilepsy. If the clinical suspicion of epilepsy remains, consider additional EEG recordings. The recorded breach rhythm is consistent with the patient's history of previous craniotomy. Irene Werner MDNeurophysiology/ Epilepsy Fellow I certify that I have reviewed the EEG tracing, the fellow's report and made edits. I agree with the note and conclusions above. Wes Moore M.D., LORETA, FAANProfessor of NeurologyDirector, [facility] Epilepsy [facility] Neurophysiology Lab Electronically signed by: WES MOORE on 101:30 PMEEG AWAKE AND [id number] 13:30:00Interface, External Ris In - 09/13/2020 1:30 PM CDTNEUROPHYSIOLOGY EEG REPORT DATES OF TEST: 09/13/20 DATE OF REPORT: 09/13/20 Name: Paula Cervantes: [id number] ACC #: [id number] Number: [id number] Start time: 11:28 AMStop time: 11:50 AM CPT Code: 45481RKF-51: R56.9 HISTORY: 64-year-old woman, with a history of SAH s/p craniotomy (right side) and repeat craniotomy, presented with altered mental status MEDICATIONS THAT COULD AFFECT EEG: Levetiracetam TECHNICAL SUMMARY: This is a digital video-EEG recorded with 32 input channels reviewed with bipolar and referential montages using the modified combinatorial system nomenclature. DESCRIPTION OF RECORD: During the maximally alert state, an 8.5-9 Hz posterior dominant rhythm was seen better modulated and regulated over the left hemisphere. Over the right hemisphere, the background activity was frequently intermixed with polymorphic 2-3 Hz activity and 4-6 Hz theta activity, maximal over the centro-temporal head region. Lowvoltage beta activity predominated anteriorly in bilateral frontal regions. During drowsiness, thereis an attenuation of a posterior dominant rhythm and an increase in fronto-central theta. Stage 2 sleep was not recorded. Breach rhythm was seen over the C4 electrode site. No epileptiform dischargeswere seen. EVENTS: No clinical or electrographic seizures HV: Hyperventilation was not performed. PHOTIC STIMULATION: Photic stimulation was performed 1-30 Hz. Photic stimulation didn't elicit abnormal discharges. IMPRESSION: Abnormal Awake and Drowsy EEG - Lateralized polymorphic deltaslowing, right hemisphere, maximal centro- temporal, continuous and nonreactive CLINICAL CORRELATION: This record is indicative a lesion in the right hemisphere, maximal over the right centrotemporal head region. No epileptiform discharges were seen. No clinical or electrographic seizures were recorded. An EEG without epileptiform discharges does not exclude the possibility of epilepsy. If the clinical suspicion of epilepsy remains, consider additional EEG recordings. The recorded breach rhythm isconsistent with the patient's history of previous craniotomy. Irene Werner MDNeurophysiology/ Epilepsy Fellow I certify that I have reviewed the EEG tracing, the fellow's report and made edits. I agree with the note and conclusions above. Wes Moore M.D., [facility], FAANProfessor of NeurologyDi yasmin, [facility] Epilepsy [facility] Neurophysiology Lab [facility]-Glucose [id number] 11:39:00 Test Item Value Reference Range Interpretation Comments POC-Glucose Meter (test 94 mg/dL 70-110 : TE STED AT [facility] code = 1538) [address] [facility], [address] 30: Presetter Operator/Techni rosa ID = [id number] for Zahraa Valle Lab Interpretation (test Normal code = 47357-6) [facility]-GLUCOSE [id number] 11:39:00 Test Item Value Reference Range Interpretation Comments POC-GLUCOSE METER 94 mg/dL 70-110 : TESTED A T [facility] [address] (BEAKER) (test code = [facility], 1538) [address]: Presetter Operator/Techni rosa ID = [id number] for Zahraa Elizabeth Urinalysis w/[id number] 02:41:00 Test Item Value Reference Range Interpretation Comments Color, UA (test code Yellow = 5778-6) Clarity, UA (test Hazy code = 5767-9) Specific [place], UA 1.019 1.001-1.035 (test code = 5811-5) pH, UA (test code = 5.0 5.0-8.0 5803-2) Protein, UA (test 30 mg/dL Negative A code = 73987-0) Glucose, UA (test Negative Negative code = 365) Ketones, UA (test 20 mg/dL Negative A code = 2514-8) Bilirubin, UA (test Negative Negative code = 38552-4) Blood, UA (test code Negative Negative = 70532-7) Nitrite, UA (test Negative Negative code = 5802-4) Leukocytes, UA (test Moderate Negative A code = 5799-2) Urobilinogen, UA 0.2 mg/dL 0.2-1 (test code = 94072-0) RBC, UA (test code = 2 See_Comment [Autom ated 54853-4) message] The system which generated this result transmit sandra reference range : /HPF. The reference range was not used to interpret this result as normal/abnormal . WBC, UA (test code = 9 See_Comment [Autom ated 5821-4) message] The system which generated this result transmit sandra reference range : /HPF. The reference range was not used to interpret this result as normal/abnormal . Squam Epithel, UA 2 See_Comment [Automate d (test code = 62362-8) messag e] The system which generated this result transmit sandra reference range : /HPF. The reference range was not used to interpret this result as normal/abnormal . Specimen Source (test code = 2795) MILLIE (test code = MILLIE) Presetter Operator ID - [auto]Presetter Operator ID - tech Lab Interpretation Abnormal (test code = 54828-7) [facility] HospitalURINALYSIS W/ [id number] 02:41:00 Test Item Value Reference Range Interpretation Comments COLOR (BEAKER) (test code = 470) Yellow CLARITY (BEAKER) (test code = 469) Hazy SPECIFIC GRAVITY UA (BEAKER) (test 1.019 1.001-1.035 code = 468) PH UA (BEAKER) (test code = 467) 5.0 5.0-8.0 PROTEIN UA (BEAKER) (test code = 30 mg/dL Negative A 464) GLUCOSE UA (BEAKER) (test code = Negative Negative 365) KETONES UA (BEAKER) (test code = 20 mg/dL Negative A 371) BILIRUBIN UA (BEAKER) (test code = Negative Negative 462) BLOOD UA (BEAKER) (test code = 461) Negative Negative NITRITE UA (BEAKER) (test code = Negative Negative 465) LEUKOCYTE ESTERASE UA (BEAKER) Moderate Negative A (test code = 466) UROBILINOGEN UA (BEAKER) (test code 0.2 mg/dL 0.2-1.0 = 463) RBC UA (BEAKER) (test code = 519) 2 /HPF WBC UA (BEAKER) (test code = 520) 9 /HPF SQUAMOUS EPITHELIAL (BEAKER) (test 2 /HPF code = 516) SOURCE(BEAKER) (test code = 2795) Presetter Operator ID - [auto]Presetter Operator ID - techFungus culture + [id number] 04:53:00 Test Item Value Reference Range Interpretation Comments Result (test code = No fungus isolated in 6463-4) 28 days Fungus Smear (test No fungi seen code = 1406) [facility] HospitalFUN[facility] CULTURE + [id number] 04:53:00 Test Item Value Reference Range Interpretation Comments CULTURE (BEAKER) (test No fungus isolated in code = 1095) 28 days FUNGUS SMEAR (BEAKER) No fungi seen (test code = 1406) FUNGUS CULTURE + [id number] 04:53:00 Test Item Value Reference Range Interpretation Comments CULTURE (BEAKER) (test No fungus isolated in code = 1095) 28 days FUNGUS SMEAR (BEAKER) No fungi seen (test code = 1406) Vitamin [id number] 06:04:00 Test Item Value Reference Range Interpretation Comments Vitamin B12 (test code = 318 pg/mL 424-876 8323-9) MILLIE (test code = MILLIE) Presetter Operator ID - DOTTIE L Lab Interpretation (test Normal code = 90067-5) [facility] HospitalTSH/Free T4 If [id number] 06:04:00 Test Item Value Reference Range Interpretation Comments TSH (test code = 4.729 See_Comment [Automated 64560-5) message] The system which generated this result transmit sandra reference range : 0.350 - 4.940 uIU/mL. The reference range was not used to interpret this result as normal/abnormal . MILLIE (test code = MILLIE) Presetter Operator ID - PIAYA L Lab Interpretation Normal (test code = 99672-3) [facility] HospitalVITAMIN [id number] 06:04:00 Test Item Value Reference Range Interpretation Comments VITAMIN B12 (BEAKER) (test code = 318 pg/mL 213-816 774) Presetter Operator ID - DOTTIE LTSH/FREE T4 IF [id number] 06:04:00 Test Item Value Reference Range Interpretation Comments THYROID STIMULATING HORMONE 4.729 uIU/mL 0.350-4.940 (BEAKER) (test code = 772) Presetter Operator ID - DOTTIE LBlood gas, [id number] 03:31:00 Test Item Value Reference Range Interpretation Comments pH, Anibal (test code = 7.38 7.32-7.42 3836-6) pCO2, Anibal (test code = 45 See_Comment [Aut omated message] 935) The system whic h generated this result transmit sandra reference range : 41 - 51 mm Hg. The reference range was not used to interpret this result as normal/abnormal . pO2, Anibal (test code = 43 See_Comment H [Auto mated message] 9502-2) The system whic h generated this result transmit sandra reference range : 25 - 40 mm Hg. The reference range was not used to interpret this result as normal/abnormal . O2 Sat, Anibal (test code 77.3 % 40.0-70.0 H = 2711-0) HCO3, Anibal (test code = 26 mmol/L 21-29 89715-9) Base Excess, Anibal (test 0.4 mmol/L -2.0-3.0 code = 1927-3) Patient Temperature 37.0 (test code = 8310-5) FIO2 (test code = 1819) 21 Lab Interpretation Abnormal (test code = 14752-8) [facility] HospitalBLOOD GAS, [id number] 03:31:00 Test Item Value Reference Range Interpretation Comments PH VENOUS (BEAKER) (test code = 7.38 7.32-7.42 701) PCO2 VENOUS (BEAKER) (test code = 45 mm Hg 41-51 755) PO2 VENOUS (BEAKER) (test code = 43 mm Hg 25-40 H 702) O2 SATURATION VENOUS (BEAKER) 77.3 % 40.0-70.0 H (test code = 703) HCO3 VENOUS (BEAKER) (test code = 26 mmol/L 21-29 705) BASE EXCESS VENOUS (BEAKER) (test 0.4 mmol/L -2.0-3.0 code = 704) PATIENT TEMPERATURE (BEAKER) (test 37.0 code = 1818) FIO2 (BEAKER) (test code = 1819) 21.0 Troponin [id number] 03:03:00 Test Item Value Reference Range Interpretation Comments Troponin I (test code = <0.01 0-0.03 73268-3) MILLIE (test code = MILLIE) Troponin I (TnI) levels must be interpreted in the context of the presenting symptoms and the clinical findings. Elevated TnI levels indicate myocardial damage, but are not specific for ischemic heart disease. Elevated TnI levels are seen in patients with other cardiac conditions (including myocarditis and congestive heart failure), and slight TnI elevations occur in patients with other conditions, including sepsis, renal failure, acidosis, acute neurological disease, and persistent tachyarrhythmia.Opera tor ID - DB Lab Interpretation (test Normal code = 03905-6) [facility] HospitalTROPONIN [id number] 03:03:00 Test Item Value Reference Range Interpretation Comments TROPONIN I (BEAKER) (test code = 397) < ng/mL 0.00-0.03 Troponin I (TnI) levels must be interpreted in the context of the presenting symptoms and the clinical findings. Elevated TnI levels indicate myocardial damage, but are not specific for ischemic heart disease. Elevated TnI levels are seen in patients with other cardiac conditions (including myocarditis and congestive heart failure), and slight TnI elevations occur in patients with other conditions, including sepsis, renal failure, acidosis, acute neurological disease, and persistent tachyarrhythmia.Presetter Operator ID - DBPT/[id number] 03:00:00 Test Item Value Reference Range Interpretation Comments PROTIME (BEAKER) (test 14.9 seconds 11.9-14.2 H code = 759) INR (BEAKER) (test 1.20 See_Comment [Automat ed code = 370) message] The sy stem which generated this result transmitted reference range : <=5.90. The reference range was not used to interpret this result as normal/abnormal . PARTIAL THROMBOPLASTIN 33.1 seconds 22.5-36.0 TIME (BEAKER) (test code = 760) Effective 2018: PT Reference Range ChangeNew: 11.9-14.2 Previous: 11.7- 14.7RECOMMENDED COUMADIN/WARFARIN INR THERAPY RANGESSTANDARD DOSE: 2.0-3.0 Includes: PROPHYLAXIS for venous thrombosis, systemic embolization; TREATMENT for venous thrombosis and/or pulmonary embolus.HIGH RISK: Target INR is2.5-3.5 for patients wiht mechanical heart valves.[id number] 03:00:00 Test Item Value Reference Range Interpretation Comments PARTIAL THROMBOPLASTIN TIME 33.1 seconds 22.5-36.0 (BEAKER) (test code = 760) PROTHROMBIN TIME/[id number] 02:59:00 Test Item Value Reference Range Interpretation Comments PROTIME (BEAKER) 14.9 seconds 11.9-14.2 H (test code = 759) INR (BEAKER) (test 1.20 See_Comment [Automat ed message] code = 370) The system [employer] generated this result transmitted ref erence range: <=5.90. The reference range was not used to int erpret this result as normal/abnormal . Effective 2018: PT Reference Range ChangeNew: 11.9-14.2 Previous: 11.7- 14.7RECOMMENDED COUMADIN/WARFARIN INR THERAPY RANGESSTANDARD DOSE: 2.0-3.0 Includes: PROPHYLAXIS for venous thrombosis, systemic embolization; TREATMENT for venous thrombosis and/or pulmonary embolus.HIGH RISK: Target INR is2.5-3.5 for patients wiht mechanical heart valves.Comprehensive metabolic panel 2020-09-10 02:56:00 Test Item Value Reference Range Interpretation Comments Protein, Total (test 6.1 See_Comment [Autom ated code = 2885-2) message] The system which generated this result transmit sandra reference range : 6.0 - 8.3 gm/dL . The reference range was not u sed to interpret th is result as normal/abnormal . Albumin (test code = 3.1 g/dL 3.5-5 L 10058-1) Alkaline Phosphatase 124 U/L 40-150 (test code = 6768-6) Total Bilirubin (test 0.2 mg/dL 0.2-1.2 code = 1975-2) Sodium (test code = 141 meq/L 963-339 6988-2) Potassium (test code 3.9 meq/L 3.5-5.1 = 2823-3) Chloride (test code = 108 meq/L 98-107 H 2075-0) CO2 (test code = 23 meq/L 22-29 8-9) BUN (test code = 12 mg/dL 7-21 3094-0) Creatinine (test code 1.02 mg/dL 0.57-1.25 = 2160-0) Glucose (test code = 91 mg/dL 70-105 2345-7) Calcium (test code = 8.5 mg/dL 8.4-10.2 21284-4) AST (test code = 12 U/L 5-34 1920-8) ALT (test code = 8 U/L 6-55 1742-6) EGFR (test code = 55 mL/min/1.73 [place] [address]-6) NOT ACCURATE CREATININE CLEARANCE IN PREDICTING GLOMERULAR FILTRATION RATE . ESTIMATED GFR I S NOT APPLICABLE FOR DIALYSIS PATIEN MILLIE (test code = MILLIE) Presetter Operator ID - DB Lab Interpretation Abnormal (test code = 36032-9) [facility] [id number] 02:56:00 Test Item Value Reference Range Interpretation Comments TOTAL PROTEIN 6.1 gm/dL 6.0-8.3 (BEAKER) (test code = 770) ALBUMIN (BEAKER) 3.1 g/dL 3.5-5.0 L (test code = 1145) ALKALINE PHOSPHATASE 124 U/L 40-150 (BEAKER) (test code = 346) BILIRUBIN TOTAL 0.2 mg/dL 0.2-1.2 (BEAKER) (test code = 377) SODIUM (BEAKER) (test 141 meq/L 136-145 code = 381) POTASSIUM (BEAKER) 3.9 meq/L 3.5-5.1 (test code = 379) CHLORIDE (BEAKER) 108 meq/L 98-107 H (test code = 382) CO2 (BEAKER) (test 23 meq/L 22-29 code = 355) BLOOD UREA NITROGEN 12 mg/dL 7-21 (BEAKER) (test code = 354) CREATININE (BEAKER) 1.02 mg/dL 0.57-1.25 (test code = 358) GLUCOSE RANDOM 91 mg/dL 70-105 (BEAKER) (test code = 652) CALCIUM (BEAKER) 8.5 mg/dL 8.4-10.2 (test code = 697) AST (SGOT) (BEAKER) 12 U/L 5-34 (test code = 353) ALT (SGPT) (BEAKER) 8 U/L 6-55 (test code = 347) EGFR (BEAKER) (test 55 mL/min/1.73 ESTIMA SANDRA GFR IS code = 1092) sq m NOT ACCURATE CREATININE CLEARANCE IN PREDICTING GLOMERULAR FILTRATION RATE . ESTIMATED GFR I S NOT APPLICABLE FOR DIALYSIS PATIEN TS. Presetter Operator ID - [id number] 02:56:00 Test Item Value Reference Range Interpretation Comments MAGNESIUM (BEAKER) (test code = 2.0 mg/dL 1.6-2.6 627) Presetter Operator ID - DBLactic acid, venous [id number] 02:51:00 Test Item Value Reference Range Interpretation Comments Lactate, Venous (test code = 0.67 mmol/L 0.5-2.2 2872) MILLIE (test code = MILLIE) Presetter Operator ID - DB Lab Interpretation (test Normal code = 77936-0) [facility], [id number] 02:51:00 Test Item Value Reference Range Interpretation Comments LACTATE BLOOD VENOUS (2) (BEAKER) 0.67 mmol/L 0.50-2.20 (test code = 2872) Presetter Operator ID - [id number] 02:47:00 Test Item Value Reference Range Interpretation Comments Ammonia (test code = 30 See_Comment [Autom ated 00309-6) message] The system which generated this result transmit sandra reference range : 18 - 72 mol/L . The reference range was not u sed to interpret th is result as normal/abnormal . MILLIE (test code = MILLIE) Presetter Operator ID - DB Lab Interpretation Normal (test code = 56361-4) [facility] 02:47:00 Test Item Value Reference Range Interpretation Comments AMMONIA (BEAKER) (test code = 348) 30 mol/L 18-72 Presetter Operator ID - DBCBC W/PLT COUNT & AUTO [id number] 02:40:00 Test Item Value Reference Range Interpretation Comments WHITE BLOOD CELL COUNT (BEAKER) 5.5 K/ L 3.5-10.5 (test code = 775) RED BLOOD CELL COUNT (BEAKER) 3.34 M/ L 3.93-5.22 L (test code = 761) HEMOGLOBIN (BEAKER) (test code = 8.6 GM/DL 11.2-15.7 L 410) HEMATOCRIT (BEAKER) (test code = 27.6 % 34.1-44.9 L 411) MEAN CORPUSCULAR VOLUME (BEAKER) 82.6 fL 79.4-94.8 (test code = 753) MEAN CORPUSCULAR HEMOGLOBIN 25.7 pg 25.6-32.2 (BEAKER) (test code = 751) MEAN CORPUSCULAR HEMOGLOBIN CONC 31.2 GM/DL 32.2-35.5 L (BEAKER) (test code = 752) RED CELL DISTRIBUTION WIDTH 18.7 % 11.7-14.4 H (BEAKER) (test code = 412) PLATELET COUNT (BEAKER) (test 415 K/CU MM 150-450 code = 756) MEAN PLATELET VOLUME (BEAKER) 10.4 fL 9.4-12.3 (test code = 754) NUCLEATED RED BLOOD CELLS 0 /100 WBC 0-0 (BEAKER) (test code = 413) NEUTROPHILS RELATIVE PERCENT 55 % (BEAKER) (test code = 429) LYMPHOCYTES RELATIVE PERCENT 22 % (BEAKER) (test code = 430) MONOCYTES RELATIVE PERCENT 9 % (BEAKER) (test code = 431) EOSINOPHILS RELATIVE PERCENT 11 % (BEAKER) (test code = 432) BASOPHILS RELATIVE PERCENT 2 % (BEAKER) (test code = 437) NEUTROPHILS ABSOLUTE COUNT 3.01 K/ L 1.56-6.13 (BEAKER) (test code = 670) LYMPHOCYTES ABSOLUTE COUNT 1.22 K/ L 1.18-3.74 (BEAKER) (test code = 414) MONOCYTES ABSOLUTE COUNT (BEAKER) 0.50 K/ L 0.24-0.36 H (test code = 415) EOSINOPHILS ABSOLUTE COUNT 0.60 K/ L 0.04-0.36 H (BEAKER) (test code = 416) BASOPHILS ABSOLUTE COUNT (BEAKER) 0.10 K/ L 0.01-0.08 H (test code = 417) IMMATURE GRANULOCYTES-RELATIVE 1 % 0-1 PERCENT (BEAKER) (test code = 2801) RAD, CHEST, 1 VIEW, NON [id number] 23:40:00Reason for exam:->ALTERED MENTAL STATUSShould this be performed at the bedside?->Yes [facility] 1955 Sex: FFINAL REPORT Chest, 1 view. History: Altered mental status. Comparison: Radiograph the chest dated 08/19/2020. Findings: Right upper extremity PICC with tip overlying the cavoatrial junction.Interval worsening patchy airspace opacity in the peripheral right lung is nonspecific however possible central lucency can be seen in the setting of cavitation, recommend further evaluation with cross-sectional imaging. Unchanged calcified granuloma in the right lower lung. No pleuraleffusion or pneumothorax. Cardiac mediastinal silhouette is within normal limits given technique. Atherosclerotic calcifications of the thoracic aorta. Osteopenia. No acute osseous abnormality. Signed:Sujey Kat [facility] Verified Date/Time: 09/09/2020 23:40:09 CT, BRAIN, WITHOUT [id number] 20:59:00Reason for exam:->ALTERED MENTAL STATUSWhat is the patient's sedation requirement?->No Sedation [facility] : 1955 Sex: FFINAL REPORT CT, BRAIN, WITHOUT CONTRAST INDICATION: Altered mental statusALTERED MENTAL STATUS TECHNIQUE: Noncontrast axial imaging was obtained from the vertex to the skullbase. Axial images were reconstructed using a bone algorithm. DOSE REDUCTION: Dose modulation, iterative reconstruction, and/or weight-based adjustment of the mA/kV was utilized to reduce the radiationdose to as low as reasonably achievable. COMPARISON: CT 08/14/2020 FINDINGS: Intracranial: Again noted are postoperative changes of right-sided craniectomy for decompression of subdural collection. Subdural drain has been removed. Unchanged right parieto-occipital encephalomalacia and ex vacuo dilatation of the right lateral ventricle. Trace intraventricular hemorrhage has resolved. Unchanged scattered subarachnoid hemorrhage. No new intracranial hemorrhage or abnormal extra-axial collection. No masseffect. No hydrocephalus. Osseous structures: Right-sided craniectomy. No fracture. No suspicious lesion. Paranasal sinuses and mastoid air cells: No evidence of sinusitis. Mastoids are clear. Orbitalcontents: Globes are intact. IMPRESSION: Previous right-sided craniectomy for decompression of subdural collection. Interval removal of subdural drain. Unchanged scattered subarachnoid hemorrhage. No new site of hemorrhage. If there is persistent clinical concern for intracranial pathology, MR examination is recommended for further characterization. Signed: Lorna Stack [facility] Verified Date/Time: 09/09/2020 20:59:22 [id number] 00:00:00Ordered by an unspecified provider.[facility] HospitalTise [id number] 18:28:00 Test Item Value Reference Range Interpretation Comments Case Report (test code Surgical Pathology = 104) Report Case: [id number] Authorizing Provider: Les Parkinson MD Collected: 08/13/2020 12:51 PM Ordering Location: [facility] Received: 08/13/2020 01:16 PM SERVICES Pathologist: Santy Espinosa MD Specimen: Brain, Right, dural graft DIAGNOSIS (test code = [id number] 3220) uZzEwMzNcZnRuYmpcdWMxIH tccnRmMVxlcGljOTIwMlxhb eQvBZTkmDOmX3NpypkgMLhw RS9kJW2cuArjiMHxhGTxXVO nOpWqj4rlt164lCUfm3asYI OBdyvugQq7vXkuL48yv3H5G pfnF99znRHgYSlrnKHlqotj czIwIEJSQUlOLCBTVUJEVVJ BOCIKYFkYE09mVNGGFMJXXI XJN034AWFgowQFQehVHsfbZ H8TDHbLCCLQS27MRZmLQUrz YAkFSLPOV3EEFCMTFjWNOD8 HGULPD23hxSNlXDFMJVqGFP YTHS7DF9YUWSLZBUKXPANJV 8UYMOBYUuJGL74tYa7OXLAD SUFOVCBDRUxMIFJFQUNUSU9 KRQWMVHUGQGhSYZPGYh9VOT TkQF9CDZZHIBBBLX6TVHBae b64JLV4AbYgl3Z1RZU0KSVu OQUsq7okKUEyrQIhPsJzLlT cZnRuYmpcdWMxXGRlZmYwe1 srk667hKBns2ycIYAwCxW9n ATzGHEwyITbS729BALvHRvd c3dih1OfYHJhgNEdf3Z4UXI NwtnqbPg4lNowG95pn3Y4Ry vxO6zrBKHgXYQtY5YjVC9cT QNmQhw1YOL4BPQ2PXZdKHRz U9CgGA4jJGWlyIOjTSi4b0m jfZdtFTQkULX0e3yxRCuwhq GhCL5bwg1kkWr6e8uhyjFkM DZuWRWcwZALDOOqA1PzmMwg Nz3xsYz4uOcaVnbkWNN4Cia 0UP8urz46fjd0cVptOFHzbn ltScF0WRbuKESjzeteBIe5C GxnTCLiaSC9PSSnfNImQ4Pc TGNpWK4wwgq2YAG8DEwyNIX bVdJ2DCQbkLCeFSTkoQuaCH kxt788LYW4KnAzLP8aS1Aaj 4S1wS6vvJEnWNMdqTHiYgGw CYUijw3tiKTeHFmft4QxWJC 7eqH7rGEcrZZjHBTlJiS4UN qsLI0fsm92OJYiIBD3rr3rt MZngPboqfKbxGFcHCsbQ2Vq ESXdv738XLHsQ4KhAZOkc9C 5soRnMeNsHXUrtDQ3kiP4BK LoPY8ylnetl0hqSSlgURrwV NSecsF7osF2RGAosQHjE2Qe fJ0zPFSxXF7jxgtlv7sfWKB 5KPtiOJSdUTZ0MzKrBVXwa6 Nwswz4QlCaf7XloFYrXDtpO 86ys957FLLlhgOcA6ambWKi kagssDUtrajdFOudcuR8UKY ePSimwepnYLNrHXadX5qnIb ArBEBrcTpnIZicm3LuXMFgF SDtKgVrkJTpRKXcVvg4LVHy xSJdPIGdEoYiF2xzlqjmLzQ UZLPgm8bmW3efbSVHuRRdS8 QgUGhvbmUgTGluZTogODMyL JJ4RO22VkvcMTTgbk36 COMMENT (test code = a8yieIUdVIQnbYS3ObSpHBY 3359) aj0qqt6YfoBGyeFWeCDuyiH SwhdXiyz92vGJ4hS89NW8uR COdIoU0BQKuuyM3Jsp0RJCz MCLulJTiC405w5jzt8edlxR xlHU9mCmrONMzBCKyMCxgXW LtYkXfYx1tJpKwcPZjnIUeD D4iUXR1fnrqqHHymfdkncid bWUfXKQdYFibUD50dFTbNDQ ge9j6cRYjyQKmeWJgDJE1FB xnls8sZBSemt9= CPT Code(s) (test code r8vedUBtXMIlwCT3XfJvHVF = 3357) to2nqf9VrrCAjfLCcVGgckO UqhqKqqv57iCT6aD51OW9aP RWhXzX5LMOhfhP7Bpo7BQWy NVPrcLBwZ715o9kuy5bkitW djEY0fNvhKLHjPJOoLDljQV XdVjKyQErdJDZ7HPy3GqMcK HggMlxwYXJ9 CLINICAL HISTORY (test x4stcVHoDWXrrFD3YcFjYOR code = 3356) bn8ata6XexQAmcWMcMPdieD BkivUpgb42tHE5wC70AE1kP VFkFoG8MPKfjcI7Oym3AZZm KPHmvERtL544q1eei4apdxC bbAV6lThzXNJtPALeLHeqBD CeTmJqU4DqVJTuSTzkOT2bm WVtYVxwYXJ9 SPECIMEN SOURCE (test g2nccZUlPKWbpUA0AgXqCXN code = 3377) kh3wlq8ZntMJvvLKhEZnroW PpqnUydv61iHD2tF76YR8dB SQmKjG5EUVkryY8Pbj0DSJr XBEqbNPpU417r1mpp4sqayA ciMV4iYcfFUUyEQQnVFfnZI QpFbNeZaIjnP7aFYXkF7j9A HBhcn0= GROSS DESCRIPTION i1pbcRGpHLSjhSQeUnTxTWP (test code = 3366) cMWDta5eaUFWazMClNbCdNh NcZnRuYmpcdWMxXGRlZmYwe 3mct053uFNxo0ozWMKgYdF9 tQTuVNCcmOCoE604RXYoFLs jn0fsu7CnIJUwwYPud4S2CR ZFfoebiDz4gRumI01gw2U2D nitQ4epBXJoILZoS7VlIC0w ISReMcs2IUT5JJW6UAGuATY iV1DlUK9xQAPauOZvKHo7v9 bycWcjZGTiLHR3x5rmKHwdg tXmXB0ish4ioWk1k8uujjNs UDGoLMNqnHVZOQBuZ0KjzKj hMm0ubFr1gFagQztrLJT1Xk a1QN0axf82sda5wGftJJKps enfLpQ8OHqwLROfxxeeIQm5 MFxtYXJnbDcyMFxtYXJncjc yMFxtYXJndDcyMFxtYXJnYj ysVWavCWCjGER2CPffv383L XN9TJkef3aox9ujvOVxCyt3 ZTIxUuDtTnpdVIftn3Cwx1g qWFAmjq8lMBK4zZSgkQreg6 C0iNBzYBRzzFGsekXuBXUsT pT8MBdyQU9ugc05RQKcITX2 cb9rrIDpkMdkyjKgnZFkIQq vF1PdYLJit909ALDsO3JrND Moc9S7pgVjAxYjRZItgBN4j pC5SFCjEXw4mVEzbsI9asSv kIMuJ1inoF08NqKtdDDiC3Z txP28VtZybIJvR5GkmF17An XzxHKwN5TedZ81VnCcyISvL CRppKXxDa1tjHWwmYJhh4Yx yGGtFKipL68th948UZCxslL cW8iytLMgbftjmKBlyxuqZT pohsR7RNWuKJEwBKyxMOIiW GZzMjBcbGFuZzEwMzNcaGlj nXjoATkfMfMsHIXfHMnxI9y cZjFcZnMyMCBBLiBSZWNlaX ZlZCBmcmVzaCBsYWJlbGVkI HdpdGggdGhlIHBhdGllbnRc G4L4fgMgGF5wMXQxMECuA4C oOWAjZ70eXSNywN7rFYByHB 5kICJicmFpbiwgcmlnaHQiI PzdPNZcYZIyiUVjJXA2DZDn HwMmdJR8OT3vF1TbZrRklRb qXGAiFSUlscuuiVS5aWNcMN Tid68lnHynGH1fjH05LD5xL RO6pREaxTPqGKGrQxFyyVhn k5MbJhAfYd0yY4Sbf6FixOA avD6ftvCxccBvOTcwdLUgS4 T7tY4wwjBcpaJgqFPtghJwX xtvFC0kWFOvnMBil1FdnOH4 oYDzOXPrJ9Jif45rYT7pAZC rYYGmqOYdT0fxSGJlx4L5TD Mft9M6RBBmgeNgi3LjnIu5l FTtRGoxJYHoPeSeYZIgjt5i tbIumL07k8bqJNCsXNmjFRT xc5VvKhzvNGCyvXAuNZOnJQ quQDJcU2AwsQ7oTI6FRmghL JPtYQWES9XbX86yiIItrU== MICROSCOPIC p7lzhTNrLTLxnMM8BlVjZTW DESCRIPTION (test code dl6xuj1HffJJjmHNkFAogwO = 3371) QpazTofh54dUO6rR21CV2hK FGdNfW4RGTndcH7Ruz5ZGTg WBBsaVDwM949t2qck1maefP fyWI2gObbVMEvLZBdLBkyAX PpFrCnGPIhPy9yeEQrZWZxq n0= SPECIAL STUDIES (test x6iykNNtOLLeu6vcGOAcxDB code = 3376) uZzEwMzNcZnRuYmpcdWMxIH sutsBlTCviq0AyG2OgYiHtP FxhbnNpXGRlZmxhbmcxMDMz NSI3hvRoXDLqEXmfIMKjMMq fJp3wnIKpdKkrXvKdGVMxr7 jiudSUgxwqdIn2r2ueMOGhE tP3iFBaJSwuU3nfxkFrqXNz B0PztFOibWa6p5puVdBlLiS 2dZAuXRxhS8hxsoWxtKNnTW XmYBj7lM43VBXqrX6sjEXmA EzneoKoBxH5VRmkIIKqNqK6 MLFqzPMgEGDqY5jqHADfNSt cMJCiELecsMBpUVM2hVujt6 U3jISvtDGvtReeVfLfEjDgM pEXr5CoZSq3jMrxS6ChXZAr NiR9uHDvEHRjKYmoNOEcXXH grrC9sDtfpuPmd20wqAOtUG YwXGZzMjBcbGkwXHJpMCBDb 2DztTscTEF9kPa9vTdoDcln SSL4Zcn6OS0ygv55pjf8xBc rXERuqqgaUoT6UQevMUWwcu nxEHo6IGozKKYwuTV0ONXsy HXxQ1ErNJFkVR0aqnn3RSU3 NHtqVYYwNlI0GHYwmUXtQRN xoGitZLlyd319LQX0HtHeKX 6zV4Kys6Z9wK4joTTsPGSme BNxYbDvXJTxnm4axQRsLCdd v9LrLJR6nyY7iBRhkXOzFHR rII48Ujywj8VfZglvk2OwK4 4gbUT5XDwdk6raEH4nBzU6k mKuDIdak2hckH2zYwS2OAtv CV7eGE0jEKMcgD2wjucvHWC nYnJkcmhlYWRccGdicmRyZm 6uqGrlIEA1AHjgO0wbtU6pY vD9DEinT8wqpU9xWUs4RAyv hUC5VPCpcM0zES3xphrnr2z rNVonOUjtHIBnhmK4jzZ4UH GlzMUsJ9KmhV5hVWRfES5wr nqhs5voLUI4DGjbTQUmIHS4 DfRkMAWhq9Lspee3XqRgt6U coSGcIAvmH73nt058ACBdzd LjS6janSQmxtwhtAXnxnlvK IfucgK2RJJhIZBhJGtkMRJv XGZzMjJcbGFuZzEwMzNcaGl jaFxmMVxkYmNoXGYxXGxvY2 qbZqPkM5BsHFDpGiFzMMmyT XhbkSKxsANivHX2lH1qOO6e MURwmMTcG5DdCZCtsjEfsSA qGZD0zPHcyJWgXS4bNLofaR Muu7qhq1VnB4jttIjlqGH6E P2fTXJtYRMyDCrbk5KmnP4u LlxwbGFpblxmMVxmczIyXGx enfhgXNKjEAboR6ntOuUdSG AxqJdyBXuix4FsOVRdPMWzM vqunnWiDAm9auYgDVEpzetn XVLmkJxbiZ6sCqIiNuQwGhj eCZ1fZZBcM5zlmWVeKJIdGC VsP3mmZkIseG7rmCooZMqpU lDwOcAlOiMJf146yc8xLKHh hASggtIChKMycK8cZHfeOVj xEMvyuPVgVFfyf5wzVVMns6 e4mRSeNZQlydIzp0qyPPnvv dXoXXDijJVuxMGgJWTeo66g UGajeTewsBplANNhy7KwpXz ck6XwSyIsGNwcf3QlY31nuP JvbCBzbGlkZXMgcnVuIGFsb 20zx7niFFWmRfB8yKAlvWY2 gLTpkAVhu8AdvWojGGYzu9x rTOCpka6yakqltQDci4IdbL 5pbmcuIEludGVybmFsIHBvc 5b2vRJbWKCvVIDoEOtksSk4 XJWti556ez7hxyI3wOEtVDZ 2YWlsYWJsZSBhcmUgZXZhbH VhdGVkXHBsYWluXGYxXGZzM jJcbGFuZzEwMzNcaGljaFxm SGarQiQhXOFtOTutK2zpZyZ eL4IdHKUsTbStnQKvM2vlqM FyXHBsYWluXGYxXGZzMjJcb GFuZzEwMzNcaGljaFxmMVxk DdNjKJJpRKepW7yiStTwL4L yXGZzMjIgIFxwbGFpblxmMV xmczIyXGxhbmcxMDMzXGhpY 5pxOsYwVDJnnLgwFYmrs5Ue EANpZOZeQivhiaHzOYr9ieI oXHBhclxwbGFpblxmMVxmcz JbTMixmmfnSSEiYFivF8dnG qQgLSRtcUloNYabg6PzNQIh FPXsHqkuxxQzIZuoiOEub0v ms6KlV3lkjKcrmXU2DTNmZ7 vdkCIbqCF4JJX2qX6tPBkaq pLwGLCag5KdRHYuIKRvAtK1 qH8sJVV7WdSXzKalSURdAOw uXGYxXGZzMjJcbGFuZzEwMz NcaGljaFxmMVxkYmNoXGYxX XqbZ8twHzQaZ1QxZPHuAqOk yOoqEPnaDNr2VeibtBIyega mMVxmczIyXGxhbmcxMDMzXG jbP7gqRtBfIAUwyWylMQvrg 2NoXGYxXGNmMlxmczIyIHMg KXRdvFRgrAOKGF84KZLkIVN soRhvnD3gdSSIXEYvpbN2z6 G0BXizGAFpMCv5QUsxfaLzV MGohB0uRNVdOG5mRLy7pwOh UKRyw7PyMY7wCJNmjKQmJGR 1DALrd9EkS2Cgo4MaBUHzEW Lwcd0yukNcSnZTsHTlYGFsb j55FSVgSW5sN4zcPZYhDZQq qtBquRCty2WtMKQaxOR3aFD lCA9BEoILw66wMXSkCUBNgs LdZVRrkAhlvOA7gcM5xS8cG iBUaGUgRkRBIGhhcyBkZXRl uf8cqsXzTRQzABZku2PdhFH ytWStssQlC6Asv4FjNSUxkx 78FHbbbGHzxl14BR6zE0Ggl 8AdzL1uFFawKCAqh1ArnCFm kAWvKTEdq4XkV1jjpqoqGYz nqWKzvE9qJYYkDOt4SMHzc3 KxOPJzo5EgGvTpqpDsNILhJ BPaWRDsxB50UIO4rNlwxDlu zxCmOZ9mUTNuvxIuYSRkNDT ptQ2lTVbgccPoGNDuviH1u5 I6OCudLPUqbmUfEzsqLSM7i oUfanU7dNQxU2rqtcidBHdq QOExq6CqyA0juKRGfQAtt4L bsMXawNLCtLFbYE4usoPnUP 5nGNM5VKlhRRYFGNSnERhzB SCzIYU6DCmnMipxJTW7uaUq FMJoe5KeFHzjN9ijR19qrMh yeRk0xOPggGnfkUTdhLCzBI VrfiX3e6H9YVGri8FdshdiH HBsYWluXGYyXGZzMjJcbGFu ZzEwMzNcaGljaFxmMlxkYmN qXTCqYQcfN7vnDyVuNoUtBg xaOXH1eN== [facility] [id number] 18:28:00Surgical Pathology Report Case: [id number] Authorizing Provider: Les Parkinson MD Collected: 08/13/2020 12:51 PM Ordering Location: [facility] Received: 08/13/2020 01:16 PM SERVICES Pathologist: Santy Espinosa MD Specimen: Brain, Right, dural graft BRAIN, SUBDURAL REGION, EVACUATION:ORGANIZING HEMATOMA WITH MILD ACUTE INFLAMMATIONSKELETAL MUSCLE WITH FOCAL FOREIGN BODY GIANT CELL REACTION AND MILD CHRONIC INFLAMMATION Signing Pathologist Direct Phone Line: No bacterial or fungal organisms are identified with special stains. [id number]; [id number] x 2Subdural empyemaBrain, rightA. Receivedfresh labeled with the patient's name, medical record number and "brain, right" is a 15 x 15 x 0.2 cm portillo graft-like material with a small amount of attached soft tissue. No gross lesions or calcifications are identified. Relationship Manager sections of the attached soft tissue are submitted in A1. A gross photograph is taken.HERACLIO Jarrett PA (ASCP)cmPerformedThe interpretation of this case included the use of immunohistochemistry or special stains.Control Slides Examined: In-house known positive controls were evaluated along with the test tissue. These control slides run alongside of the patients sample show appropriate staining. Internal positive and negative controls when available are evaluated Immunohistochemistry technical testing was performed at [facility] where it was developed and its performance characteristics were determined. It has not been cleared or approved by the U.S. Food and Drug Administration. The FDA has determined that such clearance or approval is not necessary. The test is used for clinical purposes. It should not be regarded as investigational or for research. This laboratory is certified under the Clinical Laboratory Improvement Amendments of 1988 (CLIA-88) as qualified to perform high complexity clinical laboratory testing.VANCOMYCIN LEVEL, [id number] 06:43:00 Test Item Value Reference Range Interpretation Comments VANCOMYCIN TROUGH (BEAKER) (test 18.1 ug/mL 10.0-20.0 code = 522) Presetter Operator ID - SMBASIC METABOLIC [id number] 06:41:00 Test Item Value Reference Range Interpretation Comments SODIUM (BEAKER) 141 meq/L 136-145 (test code = 381) POTASSIUM (BEAKER) 3.7 meq/L 3.5-5.1 (test code = 379) CHLORIDE (BEAKER) 110 meq/L 98-107 H (test code = 382) CO2 (BEAKER) (test 22 meq/L 22-29 code = 355) BLOOD UREA NITROGEN 3 mg/dL 7-21 L (BEAKER) (test code = 354) CREATININE (BEAKER) 0.50 mg/dL 0.57-1.25 L (test code = 358) GLUCOSE RANDOM 83 mg/dL 70-105 (BEAKER) (test code = 652) CALCIUM (BEAKER) 8.8 mg/dL 8.4-10.2 (test code = 697) EGFR (BEAKER) (test 125 mL/min/1.73 ESTIM ATED GFR IS code = 1092) sq m NOT ACCURATE CREATININE CLEARANCE IN PREDICTING GLOMERULAR FILTRATION RATE . ESTIMATED GFR I S NOT APPLICABLE FOR DIALYSIS PATIEN TS. Presetter Operator ID - SMCBC W/PLT COUNT & AUTO [id number] 06:14:00 Test Item Value Reference Range Interpretation Comments WHITE BLOOD CELL COUNT (BEAKER) 5.6 K/ L 3.5-10.5 (test code = 775) RED BLOOD CELL COUNT (BEAKER) 3.08 M/ L 3.93-5.22 L (test code = 761) HEMOGLOBIN (BEAKER) (test code = 8.1 GM/DL 11.2-15.7 L 410) HEMATOCRIT (BEAKER) (test code = 26.7 % 34.1-44.9 L 411) MEAN CORPUSCULAR VOLUME (BEAKER) 86.7 fL 79.4-94.8 (test code = 753) MEAN CORPUSCULAR HEMOGLOBIN 26.3 pg 25.6-32.2 (BEAKER) (test code = 751) MEAN CORPUSCULAR HEMOGLOBIN CONC 30.3 GM/DL 32.2-35.5 L (BEAKER) (test code = 752) RED CELL DISTRIBUTION WIDTH 19.5 % 11.7-14.4 H (BEAKER) (test code = 412) PLATELET COUNT (BEAKER) (test 422 K/CU MM 150-450 code = 756) MEAN PLATELET VOLUME (BEAKER) 9.7 fL 9.4-12.3 (test code = 754) NUCLEATED RED BLOOD CELLS 0 /100 WBC 0-0 (BEAKER) (test code = 413) NEUTROPHILS RELATIVE PERCENT 63 % (BEAKER) (test code = 429) LYMPHOCYTES RELATIVE PERCENT 21 % (BEAKER) (test code = 430) MONOCYTES RELATIVE PERCENT 12 % (BEAKER) (test code = 431) EOSINOPHILS RELATIVE PERCENT 2 % (BEAKER) (test code = 432) BASOPHILS RELATIVE PERCENT 1 % (BEAKER) (test code = 437) NEUTROPHILS ABSOLUTE COUNT 3.54 K/ L 1.56-6.13 (BEAKER) (test code = 670) LYMPHOCYTES ABSOLUTE COUNT 1.20 K/ L 1.18-3.74 (BEAKER) (test code = 414) MONOCYTES ABSOLUTE COUNT (BEAKER) 0.67 K/ L 0.24-0.36 H (test code = 415) EOSINOPHILS ABSOLUTE COUNT 0.12 K/ L 0.04-0.36 (BEAKER) (test code = 416) BASOPHILS ABSOLUTE COUNT (BEAKER) 0.06 K/ L 0.01-0.08 (test code = 417) IMMATURE GRANULOCYTES-RELATIVE 1 % 0-1 PERCENT (BEAKER) (test code = 2801) BASIC METABOLIC [id number] 05:43:00 Test Item Value Reference Range Interpretation Comments SODIUM (BEAKER) 142 meq/L 136-145 (test code = 381) POTASSIUM (BEAKER) 3.1 meq/L 3.5-5.1 L (test code = 379) CHLORIDE (BEAKER) 111 meq/L 98-107 H (test code = 382) CO2 (BEAKER) (test 23 meq/L 22-29 code = 355) BLOOD UREA NITROGEN 4 mg/dL 7-21 L (BEAKER) (test code = 354) CREATININE (BEAKER) 0.49 mg/dL 0.57-1.25 L (test code = 358) GLUCOSE RANDOM 93 mg/dL 70-105 (BEAKER) (test code = 652) CALCIUM (BEAKER) 8.2 mg/dL 8.4-10.2 L (test code = 697) EGFR (BEAKER) (test 128 mL/min/1.73 ESTIM ATED GFR IS code = 1092) sq m NOT ACCURATE CREATININE CLEARANCE IN PREDICTING GLOMERULAR FILTRATION RATE . ESTIMATED GFR I S NOT APPLICABLE FOR DIALYSIS PATIEN TS. Presetter Operator ID - MEAGAN [facility] W/PLT COUNT & AUTO [id number] 05:24:00 Test Item Value Reference Range Interpretation Comments WHITE BLOOD CELL COUNT (BEAKER) 5.4 K/ L 3.5-10.5 (test code = 775) RED BLOOD CELL COUNT (BEAKER) 2.99 M/ L 3.93-5.22 L (test code = 761) HEMOGLOBIN (BEAKER) (test code = 7.8 GM/DL 11.2-15.7 L 410) HEMATOCRIT (BEAKER) (test code = 25.9 % 34.1-44.9 L 411) MEAN CORPUSCULAR VOLUME (BEAKER) 86.6 fL 79.4-94.8 (test code = 753) MEAN CORPUSCULAR HEMOGLOBIN 26.1 pg 25.6-32.2 (BEAKER) (test code = 751) MEAN CORPUSCULAR HEMOGLOBIN CONC 30.1 GM/DL 32.2-35.5 L (BEAKER) (test code = 752) RED CELL DISTRIBUTION WIDTH 19.0 % 11.7-14.4 H (BEAKER) (test code = 412) PLATELET COUNT (BEAKER) (test 423 K/CU MM 150-450 code = 756) MEAN PLATELET VOLUME (BEAKER) 9.5 fL 9.4-12.3 (test code = 754) NUCLEATED RED BLOOD CELLS 0 /100 WBC 0-0 (BEAKER) (test code = 413) NEUTROPHILS RELATIVE PERCENT 65 % (BEAKER) (test code = 429) LYMPHOCYTES RELATIVE PERCENT 19 % (BEAKER) (test code = 430) MONOCYTES RELATIVE PERCENT 11 % (BEAKER) (test code = 431) EOSINOPHILS RELATIVE PERCENT 2 % (BEAKER) (test code = 432) BASOPHILS RELATIVE PERCENT 1 % (BEAKER) (test code = 437) NEUTROPHILS ABSOLUTE COUNT 3.54 K/ L 1.56-6.13 (BEAKER) (test code = 670) LYMPHOCYTES ABSOLUTE COUNT 1.04 K/ L 1.18-3.74 L (BEAKER) (test code = 414) MONOCYTES ABSOLUTE COUNT (BEAKER) 0.60 K/ L 0.24-0.36 H (test code = 415) EOSINOPHILS ABSOLUTE COUNT 0.13 K/ L 0.04-0.36 (BEAKER) (test code = 416) BASOPHILS ABSOLUTE COUNT (BEAKER) 0.05 K/ L 0.01-0.08 (test code = 417) IMMATURE GRANULOCYTES-RELATIVE 1 % 0-1 PERCENT (BEAKER) (test code = 2801) VANCOMYCIN LEVEL, [id number] 10:03:00 Test Item Value Reference Range Interpretation Comments VANCOMYCIN TROUGH (BEAKER) (test 12.7 ug/mL 10.0-20.0 code = 522) Presetter Operator ID - JAMSHID [facility]BC W/PLT COUNT & AUTO [id number] 09:45:00 Test Item Value Reference Range Interpretation Comments WHITE BLOOD CELL COUNT (BEAKER) 6.1 K/ L 3.5-10.5 (test code = 775) RED BLOOD CELL COUNT (BEAKER) 3.10 M/ L 3.93-5.22 L (test code = 761) HEMOGLOBIN (BEAKER) (test code = 8.3 GM/DL 11.2-15.7 L 410) HEMATOCRIT (BEAKER) (test code = 26.6 % 34.1-44.9 L 411) MEAN CORPUSCULAR VOLUME (BEAKER) 85.8 fL 79.4-94.8 (test code = 753) MEAN CORPUSCULAR HEMOGLOBIN 26.8 pg 25.6-32.2 (BEAKER) (test code = 751) MEAN CORPUSCULAR HEMOGLOBIN CONC 31.2 GM/DL 32.2-35.5 L (BEAKER) (test code = 752) RED CELL DISTRIBUTION WIDTH 19.1 % 11.7-14.4 H (BEAKER) (test code = 412) PLATELET COUNT (BEAKER) (test 503 K/CU MM 150-450 H code = 756) MEAN PLATELET VOLUME (BEAKER) 9.3 fL 9.4-12.3 L (test code = 754) NUCLEATED RED BLOOD CELLS 0 /100 WBC 0-0 (BEAKER) (test code = 413) NEUTROPHILS RELATIVE PERCENT 65 % (BEAKER) (test code = 429) LYMPHOCYTES RELATIVE PERCENT 20 % (BEAKER) (test code = 430) MONOCYTES RELATIVE PERCENT 10 % (BEAKER) (test code = 431) EOSINOPHILS RELATIVE PERCENT 3 % (BEAKER) (test code = 432) BASOPHILS RELATIVE PERCENT 1 % (BEAKER) (test code = 437) NEUTROPHILS ABSOLUTE COUNT 3.99 K/ L 1.56-6.13 (BEAKER) (test code = 670) LYMPHOCYTES ABSOLUTE COUNT 1.24 K/ L 1.18-3.74 (BEAKER) (test code = 414) MONOCYTES ABSOLUTE COUNT (BEAKER) 0.59 K/ L 0.24-0.36 H (test code = 415) EOSINOPHILS ABSOLUTE COUNT 0.16 K/ L 0.04-0.36 (BEAKER) (test code = 416) BASOPHILS ABSOLUTE COUNT (BEAKER) 0.03 K/ L 0.01-0.08 (test code = 417) IMMATURE GRANULOCYTES-RELATIVE 2 % 0-1 H PERCENT (BEAKER) (test code = 2801) [id number] 05:02:00 Test Item Value Reference Range Interpretation Comments CREATININE (BEAKER) 0.51 mg/dL 0.57-1.25 L (test code = 358) EGFR (BEAKER) (test 122 mL/min/1.73 ESTIM ATED GFR IS code = 1092) sq m NOT ACCURATE CREATININE CLEARANCE IN PREDICTING GLOMERULAR FILTRATION RATE . ESTIMATED GFR I S NOT APPLICABLE FOR DIALYSIS PATIEN TS. Presetter Operator ID - MEAGAN MBASIC METABOLIC [id number] 05:37:00 Test Item Value Reference Range Interpretation Comments SODIUM (BEAKER) 141 meq/L 136-145 (test code = 381) POTASSIUM (BEAKER) 3.2 meq/L 3.5-5.1 L (test code = 379) CHLORIDE (BEAKER) 111 meq/L 98-107 H (test code = 382) CO2 (BEAKER) (test 23 meq/L 22-29 code = 355) BLOOD UREA NITROGEN 4 mg/dL 7-21 L (BEAKER) (test code = 354) CREATININE (BEAKER) 0.50 mg/dL 0.57-1.25 L (test code = 358) GLUCOSE RANDOM 94 mg/dL 70-105 (BEAKER) (test code = 652) CALCIUM (BEAKER) 8.5 mg/dL 8.4-10.2 (test code = 697) EGFR (BEAKER) (test 125 mL/min/1.73 ESTIM ATED GFR IS code = 1092) sq m NOT ACCURATE CREATININE CLEARANCE IN PREDICTING GLOMERULAR FILTRATION RATE . ESTIMATED GFR I S NOT APPLICABLE FOR DIALYSIS PATIEN TS. Presetter Operator ID - MEAGAN [facility]BC W/PLT COUNT & AUTO [id number] 05:09:00 Test Item Value Reference Range Interpretation Comments WHITE BLOOD CELL COUNT (BEAKER) 5.0 K/ L 3.5-10.5 (test code = 775) RED BLOOD CELL COUNT (BEAKER) 3.07 M/ L 3.93-5.22 L (test code = 761) HEMOGLOBIN (BEAKER) (test code = 8.0 GM/DL 11.2-15.7 L 410) HEMATOCRIT (BEAKER) (test code = 26.3 % 34.1-44.9 L 411) MEAN CORPUSCULAR VOLUME (BEAKER) 85.7 fL 79.4-94.8 (test code = 753) MEAN CORPUSCULAR HEMOGLOBIN 26.1 pg 25.6-32.2 (BEAKER) (test code = 751) MEAN CORPUSCULAR HEMOGLOBIN CONC 30.4 GM/DL 32.2-35.5 L (BEAKER) (test code = 752) RED CELL DISTRIBUTION WIDTH 18.5 % 11.7-14.4 H (BEAKER) (test code = 412) PLATELET COUNT (BEAKER) (test 536 K/CU MM 150-450 H code = 756) MEAN PLATELET VOLUME (BEAKER) 9.5 fL 9.4-12.3 (test code = 754) NUCLEATED RED BLOOD CELLS 0 /100 WBC 0-0 (BEAKER) (test code = 413) NEUTROPHILS RELATIVE PERCENT 59 % (BEAKER) (test code = 429) LYMPHOCYTES RELATIVE PERCENT 24 % (BEAKER) (test code = 430) MONOCYTES RELATIVE PERCENT 11 % (BEAKER) (test code = 431) EOSINOPHILS RELATIVE PERCENT 3 % (BEAKER) (test code = 432) BASOPHILS RELATIVE PERCENT 1 % (BEAKER) (test code = 437) NEUTROPHILS ABSOLUTE COUNT 2.96 K/ L 1.56-6.13 (BEAKER) (test code = 670) LYMPHOCYTES ABSOLUTE COUNT 1.23 K/ L 1.18-3.74 (BEAKER) (test code = 414) MONOCYTES ABSOLUTE COUNT (BEAKER) 0.55 K/ L 0.24-0.36 H (test code = 415) EOSINOPHILS ABSOLUTE COUNT 0.14 K/ L 0.04-0.36 (BEAKER) (test code = 416) BASOPHILS ABSOLUTE COUNT (BEAKER) 0.05 K/ L 0.01-0.08 (test code = 417) IMMATURE GRANULOCYTES-RELATIVE 2 % 0-1 H PERCENT (BEAKER) (test code = 2801) VANCOMYCIN LEVEL, [id number] 11:08:00 Test Item Value Reference Range Interpretation Comments VANCOMYCIN TROUGH (BEAKER) (test 14.7 ug/mL 10.0-20.0 code = 522) Presetter Operator ID - PIAYA [id number] 08:12:00 Test Item Value Reference Range Interpretation Comments CREATININE (BEAKER) 0.49 mg/dL 0.57-1.25 L (test code = 358) EGFR (BEAKER) (test 128 mL/min/1.73 ESTIM ATED GFR IS code = 1092) sq m NOT ACCURATE CREATININE CLEARANCE IN PREDICTING GLOMERULAR FILTRATION RATE . ESTIMATED GFR I S NOT APPLICABLE FOR DIALYSIS PATIEN TSTeresa RAD, CHEST, 1 VIEW, NON [id number] 15:09:00Reason for exam:->RIGHT PICC LINE TIP VERIFICATIONShould this be performed at the bedside?->Yes [facility] : 1955 Sex: FFINAL REPORT INDICATION: RIGHT PICC LINE TIP VERIFICATION COMPARISON: None TECHNIQUE: Single frontal view of the chest. FINDINGS: Lungs and pleura: Bibasilar interstitial thickening, unchanged No effusion.Heart and mediastinum: Normal heart size. Unremarkable mediastinal contours.Osseous structures: No acute abnormality.Other: PICC tip overlies the atriocaval junction. Signed: Denise Alexander Verified Date/Time: 08/19/2020 15:09:24 Reading Location: [facility] Reading Room Anaerobic [id number] 20:13:00 Test Item Value Reference Range Interpretation Comments Result (test code = No anaerobes isolated 6463-4) [facility] [id number] 20:13:00 Test Item Value Reference Range Interpretation Comments CULTURE (BEAKER) (test No anaerobes isolated code = 1095) ANAEROBIC [id number] 20:12:00 Test Item Value Reference Range Interpretation Comments CULTURE (BEAKER) (test No anaerobes isolated code = 1095) VANCOMYCIN LEVEL, [id number] 10:54:00 Test Item Value Reference Range Interpretation Comments VANCOMYCIN TROUGH (BEAKER) (test 19.4 ug/mL 10.0-20.0 code = 522) Presetter Operator ID - DOTTIE LBLOOD [id number] 09:00:00 Test Item Value Reference Range Interpretation Comments CULTURE (BEAKER) (test No growth in 5 days code = 1095) BLOOD [id number] 08:00:00 Test Item Value Reference Range Interpretation Comments CULTURE (BEAKER) (test No growth in 5 days code = 1095) POCT-GLUCOSE [id number] 18:07:00 Test Item Value Reference Range Interpretation Comments POC-GLUCOSE METER 118 mg/dL 70-110 H : TESTED A T [facility] (BEAKER) (test code = [place], 1538) [address]: Presetter Operator/Techni rosa ID = [id number] for NEIL MATTHEWSAMY SARS-COV2/RT-PCR ([facility])2020-08-17 16:14:00 Test Item Value Reference Range Interpretation Comments SARS-COV2/RT-PCR (test A pos itive COVID-19 test code = 0202561) in a previou sly positive patient in the last 3 months indicate s continuous shed ding, rather than inf ectivity. Repeat testing is not allowed in thes e cases per hospital po licy for non-ID physicia ns. Isolation is no t needed if patient is p resenting >10 days (or >2 0 days for severely immunocompromis ed) from initial COVID-1 9 symptom onset (per CDC and hospital policy ). SARS-COV-2 PERFORMING [facility] (test code = 6509146) Results are for the detection of SARS-CoV-2 RNA. The SARS-CoV-2 RNA is generally detectable in nasopharyngeal swab specimens during the acute phase of infection. Positive results are indicative of active infection with SARS-CoV-2; clinical correlation with patient history and other diagnostic information is necessary to determine patient infection status. Positive results do not rule out bacterial infection or co-infection with other viruses. The agent detected may not be the definite cause of disease. The limit of detection for this assay is 250 copies/mL.This SARS CoV-2 test is a rapid, zudp-owpxTD-XBC test intended for the qualitative detection of nucleic acid from SARS-CoV-2 in a nasopharyngeal swab specimen collected from individuals suspected of COVID-19 by their healthcare provider.This test has not been Food and Drug Administration (FDA) cleared or approved and has been authorized by FDA under an Emergency Use Authorization (EUA). This EUA will be effective until the declaration that ci rcumstances exist justifying the authorization of the emergency use of in vitro diagnostic tests fordetection and/or diagnosis of COVID-19 is terminated under Section 564(b)(2) of the Act or the EUA is revoked under Section 564(g) of the Act.Fact Sheet for Healthcare Providers:https://www.[place]/ Documents/Xpert%20Xpress%20SARS%20CoV-2/Fact%20Sheets/3023802%07CKDK-VDR-3%20HE ALTHCARE%20PROVIDERS%20FACT%20SHEET.pdfFact Sheet for Healthcare Patients:https://www.[place]/Documents/Xpert%20Xpress %20SARS%20CoV-2/Fact%20Sheets/3023801%36YBJW-DMW-0%20PATIENT%20FACT%20SHEET.pdf Performing Laboratory:[facility], [place] [address]MOSA-BDLAXDD [id number] 12:27:00 Test Item Value Reference Range Interpretation Comments POC-GLUCOSE METER 100 mg/dL 70-110 : TESTED A T [facility] 6720 (BEAKER) (test code = [facility], 1538) [address]: Presetter Operator/Techni rosa ID = [id number] for AMY MARTIN SURGICALLY OBTAINED CULTURE + GRAM [id number] 10:23:00 Test Item Value Reference Interpretation Comments Range CULTURE (BEAKER) STAPHYLOCOCCUS A <1+ Staph ylococcus (test code = 1095) EPIDERMIDIS epidermid is Clindamycin (test S code = 10) Erythromycin (test R code = 4) Linezolid (test code S = 40) Nitrofurantoin (test S code = 23) Oxacillin (test code R = 14) Rifampin (test code = S 43) Tetracycline (test R code = 2) Trimethoprim + R Sulfamethoxazole (test code = 47) Vancomycin (test code S = 13) POCT-GLUCOSE [id number] 07:46:00 Test Item Value Reference Range Interpretation Comments POC-GLUCOSE METER 100 mg/dL 70-110 : TESTED A T [facility] ([facility]) (test code = [facility], 1538) [address]: Presetter Operator/Techni rosa ID = [id number] for ATTILA MERCER [id number] 07:14:00 Test Item Value Reference Range Interpretation Comments Phosphorus (test code = 3.9 mg/dL 2.3-4.7 2777-1) MILLIE (test code = MILLIE) Presetter Operator ID - MEAGAN M Lab Interpretation (test Normal code = 80831-6) [facility]OL[facility] [id number] 07:14:00 Test Item Value Reference Range Interpretation Comments TOTAL PROTEIN 5.9 gm/dL 6.0-8.3 L (BEAKER) (test code = 770) ALBUMIN (BEAKER) 2.8 g/dL 3.5-5.0 L (test code = 1145) ALKALINE PHOSPHATASE 156 U/L 40-150 H (BEAKER) (test code = 346) BILIRUBIN TOTAL 0.4 mg/dL 0.2-1.2 (BEAKER) (test code = 377) SODIUM (BEAKER) (test 139 meq/L 136-145 code = 381) POTASSIUM (BEAKER) 3.8 meq/L 3.5-5.1 (test code = 379) CHLORIDE (BEAKER) 109 meq/L 98-107 H (test code = 382) CO2 (BEAKER) (test 21 meq/L 22-29 L code = 355) BLOOD UREA NITROGEN 7 mg/dL 7-21 (BEAKER) (test code = 354) CREATININE (BEAKER) 0.51 mg/dL 0.57-1.25 L (test code = 358) GLUCOSE RANDOM 90 mg/dL 70-105 (BEAKER) (test code = 652) CALCIUM (BEAKER) 8.7 mg/dL 8.4-10.2 (test code = 697) AST (SGOT) (BEAKER) 12 U/L 5-34 (test code = 353) ALT (SGPT) (BEAKER) 7 U/L 6-55 (test code = 347) EGFR (BEAKER) (test 122 ESTIMATE D GFR IS code = 1092) mL/min/1.73 sq NOT ACCURA TE m CREATININE CLEARANCE IN PREDICTING GLOMERULAR FILTRATION RATE . ESTIMATED GFR I S NOT APPLICABLE FOR DIALYSIS PATIEN TS. Presetter Operator ID - MEAGAN [id number] 07:14:00 Test Item Value Reference Range Interpretation Comments MAGNESIUM (BEAKER) (test code = 2.0 mg/dL 1.6-2.6 627) Presetter Operator ID - MEAGAN [id number] 07:14:00 Test Item Value Reference Range Interpretation Comments PHOSPHORUS (BEAKER) (test code = 3.9 mg/dL 2.3-4.7 604) Presetter Operator ID - MEAGAN MCBC W/PLT COUNT & AUTO [id number] 06:35:00 Test Item Value Reference Range Interpretation Comments WHITE BLOOD CELL COUNT (BEAKER) 4.6 K/ L 3.5-10.5 (test code = 775) RED BLOOD CELL COUNT (BEAKER) 3.31 M/ L 3.93-5.22 L (test code = 761) HEMOGLOBIN (BEAKER) (test code = 8.7 GM/DL 11.2-15.7 L 410) HEMATOCRIT (BEAKER) (test code = 27.7 % 34.1-44.9 L 411) MEAN CORPUSCULAR VOLUME (BEAKER) 83.7 fL 79.4-94.8 (test code = 753) MEAN CORPUSCULAR HEMOGLOBIN 26.3 pg 25.6-32.2 (BEAKER) (test code = 751) MEAN CORPUSCULAR HEMOGLOBIN CONC 31.4 GM/DL 32.2-35.5 L (BEAKER) (test code = 752) RED CELL DISTRIBUTION WIDTH 17.4 % 11.7-14.4 H (BEAKER) (test code = 412) PLATELET COUNT (BEAKER) (test 584 K/CU MM 150-450 H code = 756) MEAN PLATELET VOLUME (BEAKER) 10.1 fL 9.4-12.3 (test code = 754) NUCLEATED RED BLOOD CELLS 0 /100 WBC 0-0 (BEAKER) (test code = 413) NEUTROPHILS RELATIVE PERCENT 65 % (BEAKER) (test code = 429) LYMPHOCYTES RELATIVE PERCENT 21 % (BEAKER) (test code = 430) MONOCYTES RELATIVE PERCENT 9 % (BEAKER) (test code = 431) EOSINOPHILS RELATIVE PERCENT 4 % (BEAKER) (test code = 432) BASOPHILS RELATIVE PERCENT 0 % (BEAKER) (test code = 437) NEUTROPHILS ABSOLUTE COUNT 2.97 K/ L 1.56-6.13 (BEAKER) (test code = 670) LYMPHOCYTES ABSOLUTE COUNT 0.94 K/ L 1.18-3.74 L (BEAKER) (test code = 414) MONOCYTES ABSOLUTE COUNT (BEAKER) 0.43 K/ L 0.24-0.36 H (test code = 415) EOSINOPHILS ABSOLUTE COUNT 0.16 K/ L 0.04-0.36 (BEAKER) (test code = 416) BASOPHILS ABSOLUTE COUNT (BEAKER) 0.02 K/ L 0.01-0.08 (test code = 417) IMMATURE GRANULOCYTES-RELATIVE 2 % 0-1 H PERCENT (BEAKER) (test code = 2801) POCT-GLUCOSE [id number] 20:29:00 Test Item Value Reference Range Interpretation Comments POC-GLUCOSE METER 96 mg/dL 70-110 : TESTED A T [facility] [address] (BEAKER) (test code = [place], 1538) [address]: Presetter Operator/Techni rosa ID = [id number] for Joesph Calhoun (cont ract) CSF culture + gram [id number] 13:53:00 Test Item Value Reference Range Interpretation Comments Result (test code = 6463-4) No growth Gram Stain Result (test No organisms seen code = 1123) MILLIE (test code = MILLIE) [facility] [id number] 13:53:00 Test Item Value Reference Range Interpretation Comments Result (test code = 6463-4) No growth Gram Stain Result (test No organisms seen code = 1123) [facility] + GRAM [id number] 13:53:00 Test Item Value Reference Range Interpretation Comments CULTURE (BEAKER) (test code No growth = 1095) GRAM STAIN RESULT (BEAKER) 1+ WBCs (test code = 1123) GRAM STAIN RESULT (BEAKER) No organisms seen (test code = 23455) CSF CULTURE + GRAM [id number] 13:53:00 Test Item Value Reference Range Interpretation Comments CULTURE (BEAKER) (test code No growth = 1095) GRAM STAIN RESULT (BEAKER) <1+ WBCs (test code = 1123) GRAM STAIN RESULT (BEAKER) No organisms seen (test code = 743834) COMPREHENSIVE METABOLIC [id number] 05:27:00 Test Item Value Reference Range Interpretation Comments TOTAL PROTEIN 5.9 gm/dL 6.0-8.3 L (BEAKER) (test code = 770) ALBUMIN (BEAKER) 2.9 g/dL 3.5-5.0 L (test code = 1145) ALKALINE PHOSPHATASE 129 U/L 40-150 (BEAKER) (test code = 346) BILIRUBIN TOTAL 0.5 mg/dL 0.2-1.2 (BEAKER) (test code = 377) SODIUM (BEAKER) (test 139 meq/L 136-145 code = 381) POTASSIUM (BEAKER) 3.6 meq/L 3.5-5.1 (test code = 379) CHLORIDE (BEAKER) 108 meq/L 98-107 H (test code = 382) CO2 (BEAKER) (test 21 meq/L 22-29 L code = 355) BLOOD UREA NITROGEN 5 mg/dL 7-21 L (BEAKER) (test code = 354) CREATININE (BEAKER) 0.48 mg/dL 0.57-1.25 L (test code = 358) GLUCOSE RANDOM 93 mg/dL 70-105 (BEAKER) (test code = 652) CALCIUM (BEAKER) 8.8 mg/dL 8.4-10.2 (test code = 697) AST (SGOT) (BEAKER) 14 U/L 5-34 (test code = 353) ALT (SGPT) (BEAKER) 8 U/L 6-55 (test code = 347) EGFR (BEAKER) (test 131 ESTIMATE D GFR IS code = 1092) mL/min/1.73 sq NOT ACCURA TE m CREATININE CLEARANCE IN PREDICTING GLOMERULAR FILTRATION RATE . ESTIMATED GFR I S NOT APPLICABLE FOR DIALYSIS PATIEN TS. Presetter Operator ID - [id number] 05:27:00 Test Item Value Reference Range Interpretation Comments MAGNESIUM (BEAKER) (test code = 1.9 mg/dL 1.6-2.6 627) Presetter Operator ID - [id number] 05:27:00 Test Item Value Reference Range Interpretation Comments PHOSPHORUS (BEAKER) (test code = 3.2 mg/dL 2.3-4.7 604) Presetter Operator ID - ADMINCBC W/PLT COUNT & AUTO [id number] 04:39:00 Test Item Value Reference Range Interpretation Comments WHITE BLOOD CELL COUNT (BEAKER) 4.8 K/ L 3.5-10.5 (test code = 775) RED BLOOD CELL COUNT (BEAKER) 3.38 M/ L 3.93-5.22 L (test code = 761) HEMOGLOBIN (BEAKER) (test code = 8.8 GM/DL 11.2-15.7 L 410) HEMATOCRIT (BEAKER) (test code = 28.0 % 34.1-44.9 L 411) MEAN CORPUSCULAR VOLUME (BEAKER) 82.8 fL 79.4-94.8 (test code = 753) MEAN CORPUSCULAR HEMOGLOBIN 26.0 pg 25.6-32.2 (BEAKER) (test code = 751) MEAN CORPUSCULAR HEMOGLOBIN CONC 31.4 GM/DL 32.2-35.5 L (BEAKER) (test code = 752) RED CELL DISTRIBUTION WIDTH 17.2 % 11.7-14.4 H (BEAKER) (test code = 412) PLATELET COUNT (BEAKER) (test 475 K/CU MM 150-450 H code = 756) MEAN PLATELET VOLUME (BEAKER) 10.1 fL 9.4-12.3 (test code = 754) NUCLEATED RED BLOOD CELLS 0 /100 WBC 0-0 (BEAKER) (test code = 413) NEUTROPHILS RELATIVE PERCENT 68 % (BEAKER) (test code = 429) LYMPHOCYTES RELATIVE PERCENT 18 % (BEAKER) (test code = 430) MONOCYTES RELATIVE PERCENT 10 % (BEAKER) (test code = 431) EOSINOPHILS RELATIVE PERCENT 3 % (BEAKER) (test code = 432) BASOPHILS RELATIVE PERCENT 0 % (BEAKER) (test code = 437) NEUTROPHILS ABSOLUTE COUNT 3.28 K/ L 1.56-6.13 (BEAKER) (test code = 670) LYMPHOCYTES ABSOLUTE COUNT 0.85 K/ L 1.18-3.74 L (BEAKER) (test code = 414) MONOCYTES ABSOLUTE COUNT (BEAKER) 0.49 K/ L 0.24-0.36 H (test code = 415) EOSINOPHILS ABSOLUTE COUNT 0.13 K/ L 0.04-0.36 (BEAKER) (test code = 416) BASOPHILS ABSOLUTE COUNT (BEAKER) 0.02 K/ L 0.01-0.08 (test code = 417) IMMATURE GRANULOCYTES-RELATIVE 1 % 0-1 PERCENT (BEAKER) (test code = 2801) COMPREHENSIVE METABOLIC [id number] 07:50:00 Test Item Value Reference Range Interpretation Comments TOTAL PROTEIN 5.6 gm/dL 6.0-8.3 L (BEAKER) (test code = 770) ALBUMIN (BEAKER) 2.7 g/dL 3.5-5.0 L (test code = 1145) ALKALINE PHOSPHATASE 109 U/L 40-150 (BEAKER) (test code = 346) BILIRUBIN TOTAL 0.4 mg/dL 0.2-1.2 (BEAKER) (test code = 377) SODIUM (BEAKER) (test 138 meq/L 136-145 code = 381) POTASSIUM (BEAKER) 3.8 meq/L 3.5-5.1 (test code = 379) CHLORIDE (BEAKER) 108 meq/L 98-107 H (test code = 382) CO2 (BEAKER) (test 21 meq/L 22-29 L code = 355) BLOOD UREA NITROGEN 5 mg/dL 7-21 L (BEAKER) (test code = 354) CREATININE (BEAKER) 0.48 mg/dL 0.57-1.25 L (test code = 358) GLUCOSE RANDOM 93 mg/dL 70-105 (BEAKER) (test code = 652) CALCIUM (BEAKER) 8.3 mg/dL 8.4-10.2 L (test code = 697) AST (SGOT) (BEAKER) 11 U/L 5-34 (test code = 353) ALT (SGPT) (BEAKER) 7 U/L 6-55 (test code = 347) EGFR (BEAKER) (test 131 ESTIMATE D GFR IS code = 1092) mL/min/1.73 sq NOT ACCURA TE m CREATININE CLEARANCE IN PREDICTING GLOMERULAR FILTRATION RATE . ESTIMATED GFR I S NOT APPLICABLE FOR DIALYSIS PATIEN TS. Presetter Operator ID - [id number] 07:50:00 Test Item Value Reference Range Interpretation Comments MAGNESIUM (BEAKER) (test code = 2.0 mg/dL 1.6-2.6 627) Presetter Operator ID - [id number] 07:50:00 Test Item Value Reference Range Interpretation Comments PHOSPHORUS (BEAKER) (test code = 2.9 mg/dL 2.3-4.7 604) Presetter Operator ID - BSCBC W/PLT COUNT & AUTO [id number] 07:16:00 Test Item Value Reference Range Interpretation Comments WHITE BLOOD CELL COUNT (BEAKER) 5.8 K/ L 3.5-10.5 (test code = 775) RED BLOOD CELL COUNT (BEAKER) 3.28 M/ L 3.93-5.22 L (test code = 761) HEMOGLOBIN (BEAKER) (test code = 8.7 GM/DL 11.2-15.7 L 410) HEMATOCRIT (BEAKER) (test code = 27.0 % 34.1-44.9 L 411) MEAN CORPUSCULAR VOLUME (BEAKER) 82.3 fL 79.4-94.8 (test code = 753) MEAN CORPUSCULAR HEMOGLOBIN 26.5 pg 25.6-32.2 (BEAKER) (test code = 751) MEAN CORPUSCULAR HEMOGLOBIN CONC 32.2 GM/DL 32.2-35.5 (BEAKER) (test code = 752) RED CELL DISTRIBUTION WIDTH 17.1 % 11.7-14.4 H (BEAKER) (test code = 412) PLATELET COUNT (BEAKER) (test 396 K/CU MM 150-450 code = 756) MEAN PLATELET VOLUME (BEAKER) 10.2 fL 9.4-12.3 (test code = 754) NUCLEATED RED BLOOD CELLS 0 /100 WBC 0-0 (BEAKER) (test code = 413) NEUTROPHILS RELATIVE PERCENT 76 % (BEAKER) (test code = 429) LYMPHOCYTES RELATIVE PERCENT 12 % (BEAKER) (test code = 430) MONOCYTES RELATIVE PERCENT 8 % (BEAKER) (test code = 431) EOSINOPHILS RELATIVE PERCENT 2 % (BEAKER) (test code = 432) BASOPHILS RELATIVE PERCENT 0 % (BEAKER) (test code = 437) NEUTROPHILS ABSOLUTE COUNT 4.38 K/ L 1.56-6.13 (BEAKER) (test code = 670) LYMPHOCYTES ABSOLUTE COUNT 0.71 K/ L 1.18-3.74 L (BEAKER) (test code = 414) MONOCYTES ABSOLUTE COUNT (BEAKER) 0.47 K/ L 0.24-0.36 H (test code = 415) EOSINOPHILS ABSOLUTE COUNT 0.14 K/ L 0.04-0.36 (BEAKER) (test code = 416) BASOPHILS ABSOLUTE COUNT (BEAKER) 0.01 K/ L 0.01-0.08 (test code = 417) IMMATURE GRANULOCYTES-RELATIVE 1 % 0-1 PERCENT (BEAKER) (test code = 2801) POCT-GLUCOSE [id number] 06:50:00 Test Item Value Reference Range Interpretation Comments POC-GLUCOSE METER 93 mg/dL 70-110 : TESTED A T [facility] 6720 ([facility]) (test code = [facility], 1538) [address]: Presetter Operator/Techni rosa ID = [id number] for Justin Lopes POCT-GLUCOSE [id number] 01:03:00 Test Item Value Reference Range Interpretation Comments POC-GLUCOSE METER 71 mg/dL 70-110 : TESTED A T [facility] 6720 ([facility]) (test code = [facility], 1538) [address]2011: Presetter Operator/Techni rosa ID = [id number] for Justin Lopes VANCOMYCIN LEVEL, [id number] 22:18:00 Test Item Value Reference Range Interpretation Comments VANCOMYCIN TROUGH (BEAKER) (test 12.1 ug/mL 10.0-20.0 code = 522) Presetter Operator ID - BSSRAVAN MIMS [id number] 10:34:00Unlisted Reason for Exam - Click Yes and Enter Reason Below->No [facility] : 1955 Sex: FFINAL REPORT CT, CTANG BRAINBRAIN CT WITHOUT CONTRAST INDICATION: Cerebral aneurysm, follow-up COMPARISON: Noncontrast head CT dated August 08, 2020 [facility] TECHNIQUE:Rapid acquisition spiral images were obtained between the skull base and the cranial vertex during intravenous contrast infusion to reconstruct axial images and angiographic 3D maximum intensity projections (MIP). 3-D volumetric reformatted images were created at a dedicated workstation. Precontrast images of the brain were also obtained. DOSE REDUCTION: Dose modulation, iterative reconstruction, and/or weight-based adjustment of the mA/kV was utilized to reduce the radiationdose to as low as reasonably achievable. FINDINGS:CT BRAIN:Status post craniotomy for decompression of right-sided subdural flexion with near complete resolution of mass effect. Subdural drain is present in situ. Minimal subarachnoid blood overlies prior infarction of the right parietal lobe superimposed over chronic right occipital infarction. There is passive ventricular expansion is a result of adjacent volume loss. Trace blood is present in the right ventricle. Midline is normally positioned. CTA BRAIN:There is no definite cerebral aneurysm. Regions of presumed caliber increase in the right cortical branches are not confirmed on orthogonal views. Major [place] branches are patent. There is no visible vascular malformation. Major dural venous sinuses opacify normally for bolus timing. IMPRESSION: No discernible intracranial aneurysm. Status post craniotomy and evacuation of subduralcollection with near total resolution of intracranial mass effect. A drain is in place. Remote ischemic changes in the parietal and occipital regions on the right. Signed: JR Diaz Robert MDReport Verified Date/Time: 08/14/2020 10:34:03 Reading Location: [facility] Reading Room CTA [id number] 10:34:00Interface, External Ris In - 08/14/2020 10:[address], CTANGIOBRA[address]RAIN CT WITHOUT CONTRAST INDICATION: Cerebral aneurysm, follow-up COMPARISON: Noncontrast headCT dated August 08, [address] [facility] TECHNIQUE:Rapid acquisition spiral images were obtained between the skull base and the cranial vertex during intravenous contrast infusion to reconstruct axial images and angiographic 3D maximum intensity projections (MIP). 3-D volumetric reformatted images were created at a dedicated workstation. Precontrast images of the brain were also obtained. DOSE REDUCTION: Dose modulation, iterative reconstruction, and/or weight-based adjustment of the mA/kV was utilized to reduce the radiation dose to as low as reasonably achievable. FINDINGS:CT BRAIN:Status post craniotomy for decompression of right-sided subdural flexion with near complete resolution of mass effect. Subdural drain is present in situ. Minimal subarachnoid blood overlies priorinfarction of the right parietal lobe superimposed over chronic right occipital infarction. There ispassive ventricular expansion is a result of adjacent volume loss. Trace blood is present in the right ventricle. Midline is normally positioned. CTA BRAIN:There is no definite cerebral aneurysm. Regions of presumed caliber increase in the right cortical branches are not confirmed on orthogonal views.Major [place] branches are patent. There is no visible vascular malformation. Major dural venous sinuses opacify normally for bolus timing. IMPRESSION: No discernible intracranial aneurysm. Status post craniotomy and evacuation of subdural collection with near total resolution of intracranial mass effect. A drain is in place. Remote ischemic changes in the parietal and occipital regions on the right. Signed: JR Diaz Robert MDReport Verified Date/Time: 08/14/2020 10:34:03 ReadingLocation: [facility] B1 C013V Neuro Reading Room [facility] [id number] 04:32:00 Test Item Value Reference Range Interpretation Comments SODIUM (BEAKER) 139 meq/L 136-145 (test code = 381) POTASSIUM (BEAKER) 3.6 meq/L 3.5-5.1 (test code = 379) CHLORIDE (BEAKER) 109 meq/L 98-107 H (test code = 382) CO2 (BEAKER) (test 19 meq/L 22-29 L code = 355) BLOOD UREA NITROGEN 4 mg/dL 7-21 L (BEAKER) (test code = 354) CREATININE (BEAKER) 0.49 mg/dL 0.57-1.25 L (test code = 358) GLUCOSE RANDOM 88 mg/dL 70-105 (BEAKER) (test code = 652) CALCIUM (BEAKER) 7.9 mg/dL 8.4-10.2 L (test code = 697) EGFR (BEAKER) (test 128 mL/min/1.73 ESTIM ATED GFR IS code = 1092) sq m NOT ACCURATE CREATININE CLEARANCE IN PREDICTING GLOMERULAR FILTRATION RATE . ESTIMATED GFR I S NOT APPLICABLE FOR DIALYSIS PATIEN TS. Presetter Operator ID - [id number] 04:20:00 Test Item Value Reference Range Interpretation Comments MAGNESIUM (BEAKER) (test code = 1.7 mg/dL 1.6-2.6 627) Presetter Operator ID - [id number] 04:20:00 Test Item Value Reference Range Interpretation Comments PHOSPHORUS (BEAKER) (test code = 3.1 mg/dL 2.3-4.7 604) Presetter Operator ID - [id number] 04:09:00 Test Item Value Reference Range Interpretation Comments PARTIAL THROMBOPLASTIN TIME 38.0 seconds 22.5-36.0 H (BEAKER) (test code = 760) PROTHROMBIN TIME/[id number] 04:08:00 Test Item Value Reference Range Interpretation Comments PROTIME (BEAKER) 14.4 seconds 11.9-14.2 H (test code = 759) INR (BEAKER) (test 1.16 See_Comment [Automat ed message] code = 370) The system [employer] generated this result transmitted ref erence range: <=5.90. The reference range was not used to int erpret this result as normal/abnormal . Effective 2018: PT Reference Range ChangeNew: 11.9-14.2 Previous: 11.7- 14.7RECOMMENDED COUMADIN/WARFARIN INR THERAPY RANGESSTANDARD DOSE: 2.0-3.0 Includes: PROPHYLAXIS for venous thrombosis, systemic embolization; TREATMENT for venous thrombosis and/or pulmonary embolus.HIGH RISK: Target INR is2.5-3.5 for patients wiht mechanical heart valves.CBC (HEMOGRAM ONLY)2020-08-14 04:02:00 Test Item Value Reference Range Interpretation Comments WHITE BLOOD CELL COUNT (BEAKER) 5.6 K/ L 3.5-10.5 (test code = 775) RED BLOOD CELL COUNT (BEAKER) 3.27 M/ L 3.93-5.22 L (test code = 761) HEMOGLOBIN (BEAKER) (test code = 8.6 GM/DL 11.2-15.7 L 410) HEMATOCRIT (BEAKER) (test code = 28.1 % 34.1-44.9 L 411) MEAN CORPUSCULAR VOLUME (BEAKER) 85.9 fL 79.4-94.8 (test code = 753) MEAN CORPUSCULAR HEMOGLOBIN 26.3 pg 25.6-32.2 (BEAKER) (test code = 751) MEAN CORPUSCULAR HEMOGLOBIN CONC 30.6 GM/DL 32.2-35.5 L (BEAKER) (test code = 752) RED CELL DISTRIBUTION WIDTH 16.9 % 11.7-14.4 H (BEAKER) (test code = 412) PLATELET COUNT (BEAKER) (test 303 K/CU MM 150-450 code = 756) MEAN PLATELET VOLUME (BEAKER) 10.4 fL 9.4-12.3 (test code = 754) NUCLEATED RED BLOOD CELLS 0 /100 WBC 0-0 (BEAKER) (test code = 413) RAD, CHEST, 1 VIEW, NON [id number] 03:37:00Reason for exam:->COVID follow upShould this be performed at the bedside?->Yes [facility] 1955 Sex: FFINAL REPORT RAD, CHEST, 1 VIEW, NON DEPT INDICATION: COVID follow up COMPARISON: None FINDINGS: Portable frontal view of the chest. IMPRESSION: Nonspecific bilateral patchy airspace disease can be seen with viral infection, including COVID-19 infection or edema. No pneumothorax or significant pleural effusion. The cardiomediastinal silhouette is unremarkable. Intact osseous structures. Signed: Joby Bill MDReport Verified Date/Time: 08/14/2020 03:37:02 [place] ink [id number] 19:02:00 Test Item Value Reference Range Interpretation Comments Lurdes Ink (test code = No encapsulated No encapsulated 638-7) yeast seen yeast seen Lab Interpretation Normal (test code = 00431-1) [facility] [id number] 19:02:00 Test Item Value Reference Range Interpretation Comments LURDES INK No encapsulated yeast No encapsulated yeast (BEAKER) (test seen seen code = 1612) ABORH, [id number] 08:57:00 Test Item Value Reference Range Interpretation Comments ABO Grouping (test code = 2588) O Rh Factor (test code = 2589) [facility]G [facility] (Symptomatic ONLY) 2020-08-13 08:15:00 Test Item Value Reference Range Interpretation Comments SARS-COV2/RT-PCR (test Positive Negative AA Thi s is an appended code = 91020-4) report. The se results have been appen ded to a previously leatha l verified report . Influenza A RT-PCR Negative Negative (test code = 42407-1) Influenza B RT-PCR Negative Negative (test code = 54754-1) RSV by RT-PCR (test Negative Negative Performa nce of the code = 45028-4) Xpert Xpress SARS-CoV-2/Flu/ RSV test has only been established in nasopharyngeal swab specimens. Use of the Xpert Xpress SARS-CoV-2/Flu/ RSV test with other spec imen types has not b een assessed and performance characteristics are unknown. As wi th any molecular test, mutations withi n the targeted geneti c regions identif ied by the Xpert Xpres s SARS-CoV-2/Flu/ RSV test could affect pr joslyn and/or probe bi nding resulting in fa ilure to detect the pres ence of virus or the vi juan alberto being detected less predictably.Neg ative results do not preclude SARS-CoV-2, Inf luenza A/B, or RSV inf ection and should not be used as the sole bas is for treatment or ot her patient managem ent decisions. Res ults from the Xpert Xpress SARS-CoV-2/Flu/ RSV test should be corre lated with the clinic al history, epidemiological data, and other data available to th e clinician evalu ating the patient. I nvalid test results ma y occur from improper s pecimen collection; chung lure to follow the mai mmended sample collecti on, handling, and s torage procedures; yuliya hnical error. False ne gative results may occ ur if virus is presen t at levels below th e analytical limi t of detection (LOD: 131 copies/mL). Vi ral nucleic acid ma y persist in vivo , independent of virus viability. Dete ction of analyte target( s) does not imply that the corresponding v irus(es) are infectious or are the causative a gents for clinical sy mptoms. Recent patient exposure to FluMist or other live attenuated influenza vacci mitchel may cause inaccurat e positive result s.This test has been authorized by [employer] under an EUA for use by authorized laboratories. This test is only au thorized for the duratio n of the declaration gina t circumstances e xist justifying the authorization o f emergency use o f in vitro diagnosti c tests for detection a nd/or diagnosis of CO VID-19 under Section 5 64(b)(1) of the Federal Food, Drug and Cosmet ic Act, 21 U.S.C. 360bbb-3(b)(1), unless the authorizati on is terminated or r evoked sooner. Fact Sh eet for Healthcare Prov iders: https://www.[employer] /Documents/Xper t%20Xpre ss%78YOJS-FoI-4 -Flu-RSV /302-4508%20Rev .%20B%20 HCP%20Fact%20Sh eet.pdf Fact Sheet for Healthcare Judith ents: https://www.[employer] /Documents/Xper t%20Xpre ss%47GEAX-DtM-2 -Flu-RSV /302-4507%20Rev .%20B%20 Patient%20Fact% 20Sheet. pdf Lab Interpretation Abnormal (test code = 89435-8) [facility]FLUENZA/RSV [id number] 08:15:00 Test Item Value Reference Range Interpretation Comments SARS-COV2/RT-PCR Positive Negative AA This is an appended (test code = report. These results [id number]) have been appen ded to a previously leatha l verified report. INFLUENZA A RT-PCR Negative Negative (test code = 4124276) INFLUENZA B RT-PCR Negative Negative (test code = 1668212) RSV RT-PCR (test Negative Negative Performanc e of the Xpert code = 4659591) Xpress SARS- CoV-2/Flu/RSV test has only b een established in nasopharyngeal swab specimens. Use of the Xpert Xpress SARS-CoV-2/Flu/ RSV test with other spec imen types has not been as sessed and performance characteristics are unknown. As wi th any molecular test, mutations within the targ eted genetic regions identified by t Xpert Xpress SARS-CoV -2/Flu/RSV test could affe ct primer and/or probe bi nding resulting in fa ilure to detect the pres ence of virus or the vi juan alberto being detected less predictably.Neg ative results do not preclude SARS-CoV-2, Inf luenza A/B, or RSV inf ection and should not be u sed as the sole basis for treatment or other patien t management deci sions. Results from e Xpert Xpress SARS-CoV -2/Flu/RSV test should be correlated with the clinic al history, epidem iological data, and other data available to e clinician evalu ating the patient. Inval id test results may occ ur from improper specim en collection; chung lure to follow the mai mmended sample collecti on, handling, and s torage procedures; yuliya hnical error. False ne gative results may occ ur if virus is presen t at levels below e analytical limi t of detection (LOD: 131 copies/mL). Vi ral nucleic acid ma y persist in vivo, indepe ndent of virus viability . Detection of an alyte target(s) does not imply that the corres ponding virus(es) are i nfectious or are the caus ative agents for clin ical symptoms. Rece nt patient exposure to Flu Mist or other live atte nuated influenza vacci mitchel may cause inaccurat e positive results.This te st has been authorized by FDA under an EUA fo r use by authorized labo ratories. This test is on ly authorized for the duration of the declaration gina t circumstances e xist justifying the authorization o f emergency use o f in vitro diagnostic test s for detection and/o r diagnosis of CO VID-19 under Section 5 64(b)(1) of the Federal Food, Drug and Cosmetic Ac t, 21 U.S.C. 360bbb -3(b)(1), unless the auth orization is terminated o r revoked sooner.Fact She et for Healthcare Prov iders: https://www.Surphace.com/D ocuments/Xpert% 20Xpress%2 9RWRY-HfW-2-Flu -RSV/- 508%20Rev.%20B% 20HCP%20Fa ct%20Sheet.pdfF act Sheet for Healthcare Patients: https://www.Surphace.com/D ocuments/Xpert% 20Xpress%2 9AHNA-UmH-9-Flu -RSV/302- 507%20Rev.%20B% 20Patient% 20Fact%20Sheet. pdf Hepatic function [id number] 06:58:00 Test Item Value Reference Range Interpretation Comments Protein, Total (test 5.9 See_Comment L [Autom ated code = 2885-2) message] The system which generated this result transmit sandra reference range : 6.0 - 8.3 gm/dL . The reference range was not u sed to interpret th is result as normal/abnormal . Albumin (test code = 3.0 g/dL 3.5-5 L 14468-7) Total Bilirubin (test 0.5 mg/dL 0.2-1.2 code = 1975-2) Bilirubin, Direct 0.3 mg/dL 0.1-0.5 (test code = 1968-7) Alkaline Phosphatase 97 U/L 40-150 (test code = 6768-6) AST (test code = 13 U/L 34 1920-8) ALT (test code = 10 U/L 1742-6) MILLIE (test code = MILLIE) Presetter Operator ID - [id number] Lab Interpretation Abnormal (test code = 13556-6) [facility] [id number] 06:58:00 Test Item Value Reference Range Interpretation Comments TOTAL PROTEIN (BEAKER) (test code = 5.9 gm/dL 6.0-8.3 L 770) ALBUMIN (BEAKER) (test code = 1145) 3.0 g/dL 3.5-5.0 L BILIRUBIN TOTAL (BEAKER) (test code 0.5 mg/dL 0.2-1.2 = 377) BILIRUBIN DIRECT (BEAKER) (test 0.3 mg/dL 0.1-0.5 code = 706) ALKALINE PHOSPHATASE (BEAKER) (test 97 U/L 40-150 code = 346) AST (SGOT) (BEAKER) (test code = 13 U/L 34 353) ALT (SGPT) (BEAKER) (test code = 10 U/L 347) Presetter Operator ID - [id number] 06:57:00 Test Item Value Reference Range Interpretation Comments MAGNESIUM (BEAKER) (test code = 1.6 mg/dL 1.6-2.6 627) Presetter Operator ID - [id number] 06:57:00 Test Item Value Reference Range Interpretation Comments PHOSPHORUS (BEAKER) (test code = 3.5 mg/dL 2.3-4.7 604) Presetter Operator ID - EDASIBASIC METABOLIC [id number] 06:57:00 Test Item Value Reference Range Interpretation Comments SODIUM (BEAKER) 140 meq/L 136-145 (test code = 381) POTASSIUM (BEAKER) 3.6 meq/L 3.5-5.1 (test code = 379) CHLORIDE (BEAKER) 103 meq/L 98-107 (test code = 382) CO2 (BEAKER) (test 26 meq/L 22-29 code = 355) BLOOD UREA NITROGEN 4 mg/dL 7-21 L (BEAKER) (test code = 354) CREATININE (BEAKER) 0.47 mg/dL 0.57-1.25 L (test code = 358) GLUCOSE RANDOM 87 mg/dL 70-105 (BEAKER) (test code = 652) CALCIUM (BEAKER) 8.3 mg/dL 8.4-10.2 L (test code = 697) EGFR (BEAKER) (test 134 mL/min/1.73 ESTIM ATED GFR IS code = 1092) sq m NOT ACCURATE CREATININE CLEARANCE IN PREDICTING GLOMERULAR FILTRATION RATE . ESTIMATED GFR I S NOT APPLICABLE FOR DIALYSIS PATIEN TS. Presetter Operator ID - [id number] [id number] 06:17:00 Test Item Value Reference Range Interpretation Comments PROTIME (BEAKER) 14.3 seconds 11.9-14.2 H (test code = 759) INR (BEAKER) (test 1.15 See_Comment [Automat ed message] code = 370) The system [employer] generated this result transmitted ref erence range: <=5.90. The reference range was not used to int erpret this result as normal/abnormal . Effective 2018: PT Reference Range ChangeNew: 11.9-14.2 Previous: 11.7- 14.7RECOMMENDED COUMADIN/WARFARIN INR THERAPY RANGESSTANDARD DOSE: 2.0-3.0 Includes: PROPHYLAXIS for venous thrombosis, systemic embolization; TREATMENT for venous thrombosis and/or pulmonary embolus.HIGH RISK: Target INR is2.5-3.5 for patients wiht mechanical heart valves.CBC W/PLT COUNT & AUTO [id number] 06:11:00 Test Item Value Reference Range Interpretation Comments WHITE BLOOD CELL COUNT (BEAKER) 4.3 K/ L 3.5-10.5 (test code = 775) RED BLOOD CELL COUNT (BEAKER) 3.81 M/ L 3.93-5.22 L (test code = 761) HEMOGLOBIN (BEAKER) (test code = 10.0 GM/DL 11.2-15.7 L 410) HEMATOCRIT (BEAKER) (test code = 32.1 % 34.1-44.9 L 411) MEAN CORPUSCULAR VOLUME (BEAKER) 84.3 fL 79.4-94.8 (test code = 753) MEAN CORPUSCULAR HEMOGLOBIN 26.2 pg 25.6-32.2 (BEAKER) (test code = 751) MEAN CORPUSCULAR HEMOGLOBIN CONC 31.2 GM/DL 32.2-35.5 L (BEAKER) (test code = 752) RED CELL DISTRIBUTION WIDTH 17.0 % 11.7-14.4 H (BEAKER) (test code = 412) PLATELET COUNT (BEAKER) (test 274 K/CU MM 150-450 code = 756) MEAN PLATELET VOLUME (BEAKER) 11.5 fL 9.4-12.3 (test code = 754) NUCLEATED RED BLOOD CELLS 0 /100 WBC 0-0 (BEAKER) (test code = 413) NEUTROPHILS RELATIVE PERCENT 66 % (BEAKER) (test code = 429) LYMPHOCYTES RELATIVE PERCENT 22 % (BEAKER) (test code = 430) MONOCYTES RELATIVE PERCENT 10 % (BEAKER) (test code = 431) EOSINOPHILS RELATIVE PERCENT 1 % (BEAKER) (test code = 432) BASOPHILS RELATIVE PERCENT 0 % (BEAKER) (test code = 437) NEUTROPHILS ABSOLUTE COUNT 2.88 K/ L 1.56-6.13 (BEAKER) (test code = 670) LYMPHOCYTES ABSOLUTE COUNT 0.97 K/ L 1.18-3.74 L (BEAKER) (test code = 414) MONOCYTES ABSOLUTE COUNT (BEAKER) 0.44 K/ L 0.24-0.36 H (test code = 415) EOSINOPHILS ABSOLUTE COUNT 0.03 K/ L 0.04-0.36 L (BEAKER) (test code = 416) BASOPHILS ABSOLUTE COUNT (BEAKER) 0.01 K/ L 0.01-0.08 (test code = 417) IMMATURE GRANULOCYTES-RELATIVE 0 % 0-1 PERCENT (BEAKER) (test code = 2801)
--- NOTE | 2021-02-07 11:33 | RAD REPORT ---
EXAM DESCRIPTION: CT - Ct Stroke Brain Wo Cont - 02/07/2021 11:20 am CLINICAL HISTORY: DECLINING STATE COMPARISON: Head Brain Wo Cont dated 12/21/2020; Head Brain Wo Cont dated 08/08/2020; Chest Single Vie w dated 01/12/2021 TECHNIQUE: All CT scans are performed using dose optimization technique as appropriate and may inclu de automated exposure control or mA/KV adjustment according to patient size. FINDINGS: Surgical changes from right parietal craniotomy with prosthesis in place. There is a subdu ral collection measuring 7 millimeters with areas of hyperdensity and a small amount of gas which is new from the prior head CT. A surgical drain is in place within the scalp. Encephalomalacia is presen t within the right temporal and right parietal lobe which is cry. No midline shift is seen. Ex vacuo dilatation of the right occipital horn of the lateral ventricle. No acute large vascular territory i nfarct is identified. No intraparenchymal hemorrhage is identified. IMPRESSION Interval postoperative changes from prior right frontoparietal craniectomy. Compared wit h 12/21/2020, there has been a more recent intervention with placement of a drain within the scalp an d new extra-axial collection. Without any immediate postoperative priors, it is difficult to know if this represents expected postoperative findings. Suggest neurosurgical consultation.
[2021-02-07 13:17] LABS: Absolute Lymphocytes (CBC) 1.1 K/uL (0.7-4.9); Hematocrit 30.6 % (36.0-45.0); Lymphocytes % 19.5 % (15.3-44.8)
[2021-02-07 13:38] LABS: Protime INR 1.11
[2021-02-07 13:40] LABS: Potassium 3.3 mmol/L (3.5-5.1)
--- NOTE | 2021-02-07 14:28 | ER ---
Nurse's Notes [facility] Name: Valerie Cervantes Age: 65 yrs Sex: Female : 1955 Arrival Date: 02/07/2021 Time: 10:59 Bed 30 Private MD: Salazar Brooks Diagnosis: Muscle weakness (generalized) Presentation: 02/07 11:08 Chief complaint: Patient's son or daughter states: Slurred speech that began last ss night. Pt recently had cranioplasty on and was discharged Sunday. Coronavirus screen: Client denies travel out of the [place] in the last 14 days. Ebola Screen: Patient denies exposure to infectious person. Patient denies travel to an Ebola-affected area in the 21 days before illness onset. Pre-hospital glucose is not applicable to this patient. An acute neurological deficit is present. Initial Sepsis Screen: Does the patient meet any 2 criteria? No. Patient's initial sepsis screen is negative. Does the patient have a suspected source of infection? No. Patient's initial sepsis screen is negative. Risk Assessment: Do you want to hurt yourself or someone else? Patient reports no desire to harm self or others. Onset of symptoms was February 06, 2021. 11:08 Method Of Arrival: Wheelchair ss 11:08 Acuity: REMY 2 ss Stroke Activation: Symptom onset > 6 hours Physician: Stroke Attending; Name: ; Notified At: ; Arrived At: Physician: Chief Stroke Resident; Name: ; Notified At: ; Arrived At: Physician: Stroke Resident; Name: ; Notified At: ; Arrived At: Physician: ED Attending; Name: ; Notified At: ; Arrived At: Physician: ED Resident; Name: ; Notified At: ; Arrived At: Historical: - Allergies: 11:11 Aspirin; ss - PMHx: 11:11 cervical cancer; CVA; Hypertension; ss - Immunization history:: Client reports receiving the 1st dose of the Covid vaccine. - Social history:: Smoking status: Patient denies any tobacco usage or history of. Vital Signs: 11:08 BP 107 / 70; Pulse 84; Resp 16; Temp 98.8(TE); Pulse Ox 98% ; Weight 68.95 kg; Height 5 ss ft. 7 in. (170.18 cm); 11:08 Body Mass Index 23.81 (68.95 kg, 170.18 cm) ED Course: 10:59 Patient arrived in ED. mr 10:59 Salazar Brooks MD is Private Physician. mr 11:09 Sterling Cabrera is Attending Physician. sp3 11:11 Triage completed. ss 11:11 Arm band placed on right wrist. ss 11:20 CT Stroke Brain w/o Contrast In Process Unspecified. EDMS 12:51 Addison Douglas, RN is Primary Nurse. bp Administered Medications: No medications were administered Outcome: 14:28 Discharge ordered by . sp3 15:00 Patient left the ED. iw Signatures: Dispatcher [employer] EDWV Tati Henriquez mr Kathi Smith, RN RN Hollie Briones RN RN Addison Douglas, RN RN bp Sterling Cabrera sp3
--- NOTE | 2021-02-07 14:28 | EDPHYS ---
Physician Documentation [facility] Name: Valerie Cervantes Age: 65 yrs Sex: Female : 1955 Arrival Date: 02/07/2021 Time: 10:59 Bed 30 Private MD: Salazar Brooks ED Physician Sterling Cabrera HPI: 02/07 11:11 This 65 yrs old Female presents to ER via Unassigned with complaints of sp3 Slurred Speech, Facial Droop. 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 Patient returns today with chief complaint of mild headache, brief episodes of confusion per daughter, and altered gait which is also now again resolved to her new baseline. Patient has no continuing symptoms but family was concerned about these new brief episodes of abnormalities for which they reached out to the primary neurosurgical team who advised him to come here first for a head CT and initial evaluation. Patient has been afebrile at home and has no other symptoms on ROS including neck pain, chest pain, shortness of breath, fever, abdominal pain, nausea, vomiting, diarrhea, new unresolved weakness, or new altered sensation. Patient denies any known sick contacts or significant travel.. Historical: - Allergies: 11:11 Aspirin; ss - PMHx: 11:11 cervical cancer; CVA; Hypertension; ss - Immunization history:: Client reports receiving the 1st dose of the Covid vaccine. - Social history:: Smoking status: Patient denies any tobacco usage or history of. ROS: 11:13 Constitutional: Negative for fever, See HPI for further ROS. sp3 11:13 Cardiovascular: Negative for chest pain. 11:13 Neuro: Positive for altered mental status, gait disturbance. Exam: 11:14 Constitutional: This is a well developed, well nourished patient who is awake, alert, sp3 and in no acute distress. Cardiovascular: Regular rate and rhythm with a normal S1 and S2. No gallops, murmurs, or rubs. Normal PMI, no JVD. No pulse deficits. Respiratory: Lungs have equal breath sounds bilaterally, clear to auscultation and percussion. No rales, rhonchi or wheezes noted. No increased work of breathing, no retractions or nasal flaring. Abdomen/GI: Soft, non-tender, with normal bowel sounds. No distension or tympany. No guarding or rebound. No evidence of tenderness throughout. Skin: Warm, dry with normal turgor. Normal color with no rashes, no lesions, and no evidence of cellulitis. 11:14 Neuro: Orientation: appropriate for stated age, to person, place, time \T\ situation. Mentation: is normal, appropriate for stated age, no acute changes, Memory: is normal, Cranial nerves: CN I not tested, CN II- XII are normal as tested, Cerebellar function: Patient with loss of fine [id number] but grossly motor is intact and at baseline. Patient is generally weak but does not appear to have any significant focal deficits and none that are new per her daughter. Her prior difficulty with gait and foot drag has since resolved., Gait: unable to assess, seizure activity, is not displayed by the patient. Vital Signs: 11:08 BP 107 / 70; Pulse 84; Resp 16; Temp 98.8(TE); Pulse Ox 98% ; Weight 68.95 kg; Height 5 ss ft. 7 in. (170.18 cm); 11:08 Body Mass Index 23.81 (68.95 kg, 170.18 cm) ss MDM: 11:16 ED course: Will obtain CT scan of the head and basic laboratory values. If CT and labs sp3 demonstrate no acute abnormality, will discharge to continue follow-up with neurosurgical team. At this time I am not suspicious for significant new bleeding, imposing intracranial pressure increases, sepsis, shock, any other critical abnormality. Patient is not on any oral antibiotics but is applying topical bacitracin. Skull graft wound site does not appear erythematous or infected. Patient is okay with the plan and disposition will be based on work-up results.. 12:47 Patient medically screened. sp3 14:26 ED course: Patient continues to have no symptoms in the emergency department. CT scan, sp3 labs are reviewed. Labs demonstrate no significant abnormality and WBC count is normal. At this time oral antibiotics would not be added patient will continue her topical application follow-up with her neurosurgical team.. 02/07 11:10 Order name: Basic Metabolic Panel; Complete Time: 14:05 sp3 02/07 11:10 Order name: CBC with Diff; Complete Time: 13:40 sp3 02/07 11:10 Order name: Protime (+inr); Complete Time: 14:26 sp3 02/07 11:10 Order name: Ptt, Activated; Complete Time: 14:26 sp3 02/07 11:10 Order name: CT Stroke Brain w/o Contrast; Complete Time: 13:22 sp3 02/07 11:10 Order name: IV Saline Lock; Complete Time: 13:02 sp3 02/07 11:10 Order name: Labs collected and sent; Complete Time: 13:02 sp3 02/07 11:10 Order name: NPO; Complete Time: 13:02 sp3 Administered Medications: No medications were administered Disposition Summary: 02/07/21 14:28 Discharge Ordered Location: Home sp3 Condition: Stable sp3 Diagnosis - Muscle weakness (generalized) sp3 Followup: sp3 - With: Private Physician - When: Upon discharge from the Emergency Department - Reason: Re-evaluation by your physician Discharge Instructions: - Discharge Summary Sheet sp3 - Weakness sp3 Forms: - Medication Reconciliation Form sp3 - Thank You Letter sp3 - Antibiotic Education sp3 - Prescription Opioid Use sp3 Signatures: Dispatcher [employer] Hollie Overton RN RN Sterling Casanova sp3
[2021-02-07 15:39] VITALS: BP 107/70; TEMP 98.8; O2SAT 98
== END 2021-02-07 15:00 | disposition home or self-care (01) ==
LOC: ER 10:53
DX: M62.81 Muscle weakness (generalized) (principal); I10 Essential (primary) hypertension; Z86.73 Personal history of transient ischemic attack (TIA), and cerebral infarction without residual deficits; Z88.6 Allergy status to analgesic agent
CPT/HCPCS: 36415; 70450; 80048; 85025; 85610; 85730; 99282